=== PATIENT | male | born 1955 | race Caucasian/White ===

== ENCOUNTER 2020-06-28 09:37 | Outpatient (REF) | payer OTHER, SELFPAY ==
[2020-06-28 12:03] LABS: Estimated Average Glucose 157 mg/dL; Hemoglobin A1c % 7.1 %
[2020-06-28 12:09] LABS: Alanine Aminotransferase 19 U/L (0-40); Albumin Level 4.2 g/dL (3.5-5.0); Alkaline Phosphatase 33 U/L (39-117); Anion Gap 13 (12-20); Aspartate Amino Transferase 20 U/L (5-37); Bilirubin Total 0.7 mg/dL (0.0-1.0); Blood Urea Nitrogen 21 mg/dL (9-16); Carbon Dioxide 30 mmol/L (22-29); Chloride 103 mmol/L (96-108); Cholesterol 169 mg/dL; Estimated Glomerular Filt Rate > 60; Glucose Fasting 141 mg/dL (60-99); HDL Cholesterol 48 mg/dL; LDL Cholesterol Calculated 98 mg/dl; Potassium 5.3 mmol/l (3.3-5.1); Sodium 141 mmol/L (135-145); Total Protein 7.3 g/dL (6.5-8.0); Triglycerides 115 mg/dL
[2020-06-28 12:12] LABS: Prostate Specific Antigen Scr 0.93 ng/mL (<0.05-4.0)
[2020-06-28 12:27] LABS: Creatinine Urine 153.25 mg/dL; Microalbumin Urine < 5.0 mg/L
== END 2020-06-28 09:38 | disposition home or self-care (01) ==
LOC: HO.HMGCLDS 09:37
PROVIDERS: PCP Internal Medicine; Visit Provider Internal Medicine
DX: E11.9 Type 2 diabetes mellitus without complications (principal); E78.5 Hyperlipidemia, unspecified; Z00.00 Encounter for general adult medical examination without abnormal findings
CPT/HCPCS: 80053; 80061; 82043; 83036; 84153

== ENCOUNTER 2020-07-09 10:01 | Outpatient (REF) | payer OTHER, SELFPAY ==
[2020-07-09 11:38] LABS: Anion Gap 11 (12-20); Blood Urea Nitrogen 19 mg/dL (9-16); Calcium 8.7 mg/dL (8.4-10.2); Carbon Dioxide 31 mmol/L (22-29); Chloride 101 mmol/L (96-108); Estimated Glomerular Filt Rate > 60; Glucose Random 126 mg/dL (60-115); Sodium 138 mmol/L (135-145)
== END 2020-07-09 10:02 | disposition home or self-care (01) ==
LOC: HO.HMGCLDS 10:01
PROVIDERS: PCP Internal Medicine; Visit Provider Internal Medicine
DX: E78.5 Hyperlipidemia, unspecified (principal); E11.9 Type 2 diabetes mellitus without complications; I10 Essential (primary) hypertension
CPT/HCPCS: 80048

== ENCOUNTER 2020-11-08 14:43 | Outpatient (REF) | payer OTHER, SELFPAY | END 2020-11-08 14:44 | disposition home or self-care (01) | LOC: HO.LNP 14:43 | PROVIDERS: Visit Provider Hospitalist | DX: B34.9 Viral infection, unspecified (principal); Z20.822 Contact with and (suspected) exposure to COVID-19 | CPT/HCPCS: U0003; U0005 ==

== ENCOUNTER 2021-01-14 08:07 | Outpatient (REF) | payer OTHER, SELFPAY ==
[2021-01-14 11:50] LABS: Alanine Aminotransferase 21 U/L (0-40); Albumin Level 4.3 g/dL (3.5-5.0); Alkaline Phosphatase 33 U/L (39-117); Anion Gap 17 (12-20); Aspartate Amino Transferase 22 U/L (5-37); Bilirubin Total 0.7 mg/dL (0.0-1.0); Blood Urea Nitrogen 21 mg/dL (9-16); Calcium 9.1 mg/dL (8.4-10.2); Carbon Dioxide 25 mmol/L (22-29); Chloride 105 mmol/L (96-108); Cholesterol 164 mg/dL; Estimated Glomerular Filt Rate > 60; Glucose Fasting 116 mg/dL (60-99); HDL Cholesterol 43 mg/dL; LDL Cholesterol Calculated 102 mg/dl; Potassium 4.6 mmol/L (3.3-5.1); Sodium 142 mmol/L (135-145); Total Protein 7.1 g/dL (6.5-8.0); Triglycerides 98 mg/dL
[2021-01-14 11:59] LABS: Creatinine Urine 197.84 mg/dL; Microalbum/Creatinine Ratio Ur 2.5 ug/mg cr
[2021-01-14 12:01] LABS: Estimated Average Glucose 146 mg/dL; Hemoglobin A1c % 6.7 %
== END 2021-01-14 08:08 | disposition home or self-care (01) ==
LOC: HO.HMGCLDS 08:07
PROVIDERS: PCP Internal Medicine; Visit Provider Internal Medicine
DX: E78.5 Hyperlipidemia, unspecified (principal); I10 Essential (primary) hypertension; E11.9 Type 2 diabetes mellitus without complications
CPT/HCPCS: 36415; 80053; 80061; 82043; 83036

== ENCOUNTER 2021-03-15 14:15 | Outpatient (REF) | payer OTHER, SELFPAY | END 2021-03-15 14:16 | disposition home or self-care (01) | LOC: HO.LNP 14:15 | PROVIDERS: Visit Provider Internal Medicine | DX: J01.90 Acute sinusitis, unspecified (principal); Z20.822 Contact with and (suspected) exposure to COVID-19 | CPT/HCPCS: U0003; U0005 ==

== ENCOUNTER 2021-04-22 09:04 | Outpatient (REF) | payer OTHER, SELFPAY ==
[2021-04-22 11:46] LABS: Estimated Average Glucose 148 mg/dL; Hemoglobin A1c % 6.8 %
[2021-04-22 11:52] LABS: Creatinine Urine 195.29 mg/dL; Microalbum/Creatinine Ratio Ur 2.5 ug/mg cr
[2021-04-22 12:00] LABS: Alanine Aminotransferase 28 U/L (0-40); Albumin Level 4.2 g/dL (3.5-5.0); Alkaline Phosphatase 37 U/L (39-117); Anion Gap 12 (12-20); Aspartate Amino Transferase 31 U/L (5-37); Bilirubin Total 0.7 mg/dL (0.0-1.0); Blood Urea Nitrogen 17 mg/dL (9-16); Carbon Dioxide 28 mmol/L (22-29); Chloride 104 mmol/L (96-108); Cholesterol 158 mg/dL; Estimated Glomerular Filt Rate > 60; Glucose Fasting 107 mg/dL (60-99); HDL Cholesterol 43 mg/dL; LDL Cholesterol Calculated 92 mg/dl; Potassium 4.3 mmol/L (3.3-5.1); Sodium 140 mmol/L (135-145); Total Protein 7.3 g/dL (6.5-8.0); Triglycerides 115 mg/dL
== END 2021-04-22 09:05 | disposition home or self-care (01) ==
LOC: HO.HMGCLDS 09:04
PROVIDERS: PCP Internal Medicine; Visit Provider Internal Medicine
DX: E11.9 Type 2 diabetes mellitus without complications (principal); E78.5 Hyperlipidemia, unspecified; I10 Essential (primary) hypertension
CPT/HCPCS: 36415; 80053; 80061; 82043; 83036

== ENCOUNTER 2021-09-02 09:24 | Outpatient (REF) | payer BC, SELFPAY ==
[2021-09-02 11:33] LABS: Estimated Average Glucose 163 mg/dL; Hemoglobin A1c % 7.3 %
[2021-09-02 11:38] LABS: Microalbum/Creatinine Ratio Ur 3.4 ug/mg cr
[2021-09-02 11:43] LABS: Alanine Aminotransferase 24 U/L (0-40); Albumin Level 4.1 g/dL (3.5-5.0); Alkaline Phosphatase 36 U/L (39-117); Anion Gap 12 (12-20); Aspartate Amino Transferase 26 U/L (5-37); Bilirubin Total 0.3 mg/dL (0.0-1.0); Blood Urea Nitrogen 14 mg/dL (9-16); Calcium 9.2 mg/dL (8.4-10.2); Carbon Dioxide 30 mmol/L (22-29); Chloride 103 mmol/L (96-108); Cholesterol 154 mg/dL; Estimated Glomerular Filt Rate > 60; Glucose Fasting 116 mg/dL (60-99); HDL Cholesterol 36 mg/dL; LDL Cholesterol Calculated 89 mg/dl; Potassium 4.5 mmol/L (3.3-5.1); Sodium 140 mmol/L (135-145); Total Protein 7.2 g/dL (6.5-8.0); Triglycerides 148 mg/dL
== END 2021-09-02 09:25 | disposition home or self-care (01) ==
LOC: HO.HMGCLDS 09:24
PROVIDERS: PCP Internal Medicine; Visit Provider Internal Medicine
DX: E11.9 Type 2 diabetes mellitus without complications (principal); E78.5 Hyperlipidemia, unspecified; I10 Essential (primary) hypertension
CPT/HCPCS: 36415; 80053; 80061; 82043; 83036

== ENCOUNTER 2022-02-20 08:01 | Outpatient (REF) | payer BC, SELFPAY ==
--- NOTE | ~2022-02-20 | US_ITS ---
EXAMINATION: US THYROID CLINICAL INFORMATION: Nontoxic goiter, unspecified. COMPARISON: None TECHNIQUE: Linear transducer grayscale and color Doppler examination with attention to the region of the thyroid. FINDINGS: SIZE: Measurements of the thyroid lobes and nodules are given in sagittal, anteroposterior and transverse dimensions respectively. Right Thyroid Lobe: 5.2 x 1.5 x 2.1 cm, volume 8.6 mL. Parenchyma: The gland echotexture is homogeneous. Thyroid vascularity is normal. Left Thyroid Lobe: 5.4 x 1.4 x 1.9 cm, volume 7.5 mL. Parenchyma: The gland echotexture is homogeneous. Thyroid vascularity is normal. Isthmus: 0.4 cm in maximum AP dimension. Estimated total number of nodules greater than or equal to 1 cm: 3. Panelboard Tank Pumper nodules are described as follows: 1. Location: Left lower pole. Size: 1.5 x 0.9 x 1.2 cm, volume 0.85 mL. Nodule characteristics: Composition: Solid/almost completely solid (2). Echogenicity: Hyperechoic (1). Shape: Not taller than wide (0). Margins: Smooth (0). Echogenic Foci: None (0). ACR TI-RADS total points: 3 ACR TI-RADS category: 3 2. Location: Left isthmus. Size: 1.2 x 0.8 x 1.0 cm, volume 0.50 mL. Nodule characteristics: Composition: Solid/almost completely solid (2). Echogenicity: Cannot be determined (1). Shape: Not taller than wide (0). Margins: Smooth (0). Echogenic Foci: None (0). ACR TI-RADS total points: 3 ACR TI-RADS category: 3 3. Location: Right mid pole. Size: 1.0 x 0.7 x 0.6 cm, volume 0.21 mL. Nodule characteristics: Composition: Solid/almost completely solid (2). Echogenicity: Cannot be determined (1). Shape: Taller than wide (3). Margins: Irregular (2). Echogenic Foci: None (0). ACR TI-RADS total points: 8 ACR TI-RADS category: 5 4. Location: Right lower pole. Size: 0.6 x 0.4 x 0.6 cm, volume 0.09 mL. Nodule characteristics: Composition: Solid (2). Echogenicity: Hyperechoic (1). Shape: Not taller than wide (0). Margins: Smooth (0). Echogenic Foci: None (0). ACR TI-RADS total points: 3 ACR TI-RADS category: 3 NODES: No lymphadenopathy is seen in the tissue surrounding the thyroid gland. US/US thyroid IMPRESSION: Bilateral thyroid nodules with a suspicious nodule right midpole measuring 1 cm and increased ACR TI-RADS scoring. Recommend 3 month short-term follow-up in one year. ACR TI-RADS RECOMMENDATION REFERENCE: Ultrasound-guided fine-needle aspiration, followup ultrasound, no further follow up. * TR1 (0 point) and TR 2 (2 points): No FNA or follow up * TR3 (3 points): FNA if more than or equal to 2.5 cm in maximum dimension, followup ultrasound in 1, 3 and 5 years if 1.5 to 2.4 cm in maximum dimension. * TR4 (4-6 points): FNA if more than or equal to 1.5 cm in maximum dimension, followup ultrasound in 1, 2, 3 and 5 years if 1 to 1.4 cm in maximum dimension. * TR5 (more than or equal to 7 points): FNA if more than or equal to 1 cm in maximum dimension, followup ultrasound every year for 5 years if 0.5 to 0.9 cm in maximum dimension. * TR3, TR4 or TR5 nodules that are below the size threshold for follow up receive no follow up.
== END 2022-02-20 08:02 | disposition home or self-care (01) ==
LOC: HO.HMGCX 08:01
PROVIDERS: Visit Provider Internal Medicine
DX: E04.9 Nontoxic goiter, unspecified (principal)
CPT/HCPCS: 76536

== ENCOUNTER 2022-02-23 09:18 | Outpatient (REF) | payer BC, SELFPAY ==
[2022-02-23 11:13] LABS: Hemoglobin 9.7 g/dl (14.0-18.0); Mean Corpuscular HGB Conc 28.5 g/dl (31.0-36.0); Mean Corpuscular Hemoglobin 18.7 pg (27.0-33.0); Mean Corpuscular Volume 65.6 fL (80.0-98.0); Mean Platelet Volume 9.7 fL (9.4-12.4); Platelet Count 267 X10*3/uL (160-400); Red Blood Count 5.18 X10*6/uL (4.60-5.80); Red Cell Distribution Width 18.2 % (11.0-16.0)
[2022-02-23 11:17] LABS: Estimated Average Glucose 143 mg/dL; Hemoglobin A1c % 6.6 %
[2022-02-23 11:26] LABS: Alanine Aminotransferase 29 U/L (0-40); Albumin Level 4.3 g/dL (3.5-5.0); Alkaline Phosphatase 37 U/L (39-117); Anion Gap 11 (12-20); Aspartate Amino Transferase 27 U/L (5-37); Bilirubin Total 0.4 mg/dL (0.0-1.0); Blood Urea Nitrogen 14 mg/dL (9-16); Calcium 8.8 mg/dL (8.4-10.2); Carbon Dioxide 27 mmol/L (22-29); Chloride 103 mmol/L (96-108); Cholesterol 149 mg/dL; Estimated Glomerular Filt Rate > 60; Glucose Fasting 113 mg/dL (60-99); HDL Cholesterol 38 mg/dL; LDL Cholesterol Calculated 84 mg/dl; Potassium 4.3 mmol/L (3.3-5.1); Sodium 137 mmol/L (135-145); Total Protein 7.4 g/dL (6.5-8.0); Triglycerides 139 mg/dL
== END 2022-02-23 09:19 | disposition home or self-care (01) ==
LOC: HO.HMGCLDS 09:18
PROVIDERS: PCP Internal Medicine; Visit Provider Internal Medicine
DX: I20.8 Other forms of angina pectoris (principal); I10 Essential (primary) hypertension; E11.9 Type 2 diabetes mellitus without complications
CPT/HCPCS: 36415; 80053; 80061; 83036; 85027

== ENCOUNTER 2022-03-13 12:15 | Outpatient (REF) | payer BC, SELFPAY ==
[2022-03-13 14:02] LABS: Iron 21 mcg/dL (45-160)
[2022-03-13 14:23] LABS: Percent Iron Saturation 4 % (15-50); Total Iron Binding Capacity 554 mcg/dL (228-428); Unsaturated Iron Binding 533 ug/dL
[2022-03-13 14:37] LABS: Folate 16.7 ng/mL (> or = 4.0); Vitamin B12 474 pg/mL (200-900)
== END 2022-03-13 12:16 | disposition home or self-care (01) ==
LOC: HO.HMGCLDS 12:15
PROVIDERS: PCP Internal Medicine; Visit Provider Internal Medicine
DX: D64.9 Anemia, unspecified (principal)
CPT/HCPCS: 36415; 82607; 82746; 83540

== ENCOUNTER 2022-06-15 15:13 | Outpatient (REF) | payer BC, SELFPAY ==
--- NOTE | ~2022-06-15 | US_ITS ---
EXAMINATION: US THYROID CLINICAL INFORMATION: Nontoxic single thyroid nodule. COMPARISON: Ultrasound thyroid 02/20/2022. TECHNIQUE: Linear transducer grayscale and color Doppler examination with attention to the region of the thyroid. FINDINGS: SIZE: Measurements of the thyroid lobes and nodules are given in sagittal, anteroposterior and transverse dimensions respectively. Right Thyroid Lobe: 5.1 x 1.5 x 1.6 cm, volume 6.3 mL. Previously 5.2 x 1.5 x 2.1 cm, volume 8.6 mL. Parenchyma: The gland echotexture is homogeneous. Thyroid vascularity is normal. Left Thyroid Lobe: 4.9 x 1.6 x 2.0 cm, volume 8.1 mL. Previously 5.4 x 1.4 x 1.9 cm, volume 7.5 mL. Parenchyma: The gland echotexture is homogeneous. Thyroid vascularity is normal. Isthmus: 0.60 cm in maximum AP dimension. Previously 0.40 cm. Estimated total number of nodules greater than or equal to 1 cm: 2. Manager Transport nodules are described as follows: 1. Location: Right inferior. Size: 0.84 x 0.50 x 0.60 cm, volume 0.13 mL. Previously: 0.60 x 0.40 x 0.60 cm, volume 0.09 mL. Nodule characteristics: Composition: Spongiform (0). Echogenicity: Anechoic (0). Shape: Not taller than wide (0). Margins: Smooth (0). Echogenic Foci: None (0). ACR TI-RADS total points: 0 Previous: 3 ACR TI-RADS category: 1 Previous: 3 Significant change in size (>/= 20% in 2 dimensions and minimal increase of 2 mm or 50% or greater increase in volume): None Change in features: None Change in ACR TI-RADS risk category: Improved 2. Location: Right mid. Size: 0.40 x 0.20 x 0.40 cm, volume 0.02 mL. Previously: Not seen on the previous study. Nodule characteristics: Composition: Spongiform (0). Echogenicity: Anechoic (0). Shape: Not taller than wide (0). Margins: Smooth (0). Echogenic Foci: None (0). ACR TI-RADS total points: 0 ACR TI-RADS category: 1 3. Location: Right superior. Size: 0.90 x 0.60 x 0.80 cm, volume 0.20 mL. Previously: 1.0 x 0.70 x 0.60 cm, volume 0.21 mL. Nodule characteristics: Composition: Solid/almost completely solid (2). Echogenicity: Hypoechoic (2). Shape: Not taller than wide (0). Margins: Smooth (0). Echogenic Foci: Punctate echogenic foci (3). ACR TI-RADS total points: 7 Previous: 8 ACR TI-RADS category: 5 Previous: 5 Significant change in size (>/= 20% in 2 dimensions and minimal increase of 2 mm or 50% or greater increase in volume): None Change in features: None Change in ACR TI-RADS risk category: None 4. Location: Left inferior. Size: 1.5 x 1.1 x 1.3 cm, volume 1.1 mL. Previously: 1.5 x 1.0 x 1.2 cm, volume 0.85 mL. Nodule characteristics: Composition: Solid/almost completely solid (2). Echogenicity: Hyperechoic (1). Shape: Not taller than wide (0). Margins: Smooth (0). Echogenic Foci: Punctate echogenic foci (3). ACR TI-RADS total points: 6 Previous: 3 ACR TI-RADS category: 4 Previous: 3 Significant change in size (>/= 20% in 2 dimensions and minimal increase of 2 mm or 50% or greater increase in volume): None Change in features: None Change in ACR TI-RADS risk category: Increased 5. Location: Left inferior. Size: 1.1 x 1.0 x 1.2 cm, volume 0.72 mL. Previously: 1.2 x 0.80 x 0.10 cm, volume 0.50 mL. Nodule characteristics: Composition: Mixed cystic and solid (1). Echogenicity: Hypoechoic (2). Shape: Not taller than wide (0). Margins: Smooth (0). Echogenic Foci: None (0). ACR TI-RADS total points: 3 Previous: 3 ACR TI-RADS category: 3 Previous: 3 Significant change in size (>/= 20% in 2 dimensions and minimal increase of 2 mm or 50% or greater increase in volume): None Change in features: None Change in ACR TI-RADS risk category: Increased NODES: No lymphadenopathy is seen in the tissue surrounding the thyroid gland. US/US thyroid IMPRESSION: Multiple bilateral thyroid nodules. The largest nodule lower pole left lobe measures 1.5 CM with minimal increase in total points. TR1 (0 point) and TR 2 (2 points). TR4 (4-6 points): FNA if more than or equal to 1.5 cm in maximum dimension, followup ultrasound in 1, 2, 3 and 5 years if 1 to 1.4 cm in maximum dimension. TR5 (more than or equal to 7 points). FNA if more than or equal to 1 cm in maximum dimension, followup ultrasound every year for 5 years if 0.5 to 0.9 cm in maximum dimension.
== END 2022-06-15 15:14 | disposition home or self-care (01) ==
LOC: HO.HMGCX 15:13
PROVIDERS: PCP Internal Medicine; Visit Provider Internal Medicine
DX: E04.1 Nontoxic single thyroid nodule (principal)
CPT/HCPCS: 76536

== ENCOUNTER 2022-07-28 08:32 | Outpatient (REF) | payer BC, SELFPAY ==
[2022-07-28 11:15] LABS: MANUAL DIFF FLAG NO
[2022-07-28 11:20] LABS: Basophils Absolute Auto 0.1 X10*3/uL (0.0-0.2); Basophils Percent Auto 0.8 % (0-2); Eosinophils Absolute Auto 0.4 X10*3/uL (0.0-0.4); Eosinophils Percent Auto 4.6 % (0-4); Hematocrit 45.5 % (42.0-52.0); Hemoglobin 14.2 g/dl (14.0-18.0); Imm Gran Abs Auto 0.01 X10*3/uL (0.00-0.03); Imm Gran Pct Auto 0.1 % (0.0-0.4); Lymphocytes Absolute Auto 2.9 X10*3/uL (1.2-4.9); Lymphocytes Percent Auto 38.4 % (20-40); Mean Corpuscular HGB Conc 31.2 g/dl (31.0-36.0); Mean Corpuscular Hemoglobin 24.7 pg (27.0-33.0); Mean Corpuscular Volume 79.1 fL (80.0-98.0); Mean Platelet Volume 10.7 fL (9.4-12.4); Monocytes Absolute Auto 0.7 X10*3/uL (0.1-1.2); Monocytes Percent Auto 9.1 % (2-11); Neutrophils Absolute Auto 3.6 x10*3/uL (2.0-8.3); Platelet Count 195 X10*3/uL (160-400); Red Blood Count 5.75 X10*6/uL (4.60-5.80); Red Cell Distribution Width 18.7 % (11.0-16.0); White Blood Count 7.6 X10*3/uL (4.8-10.8)
[2022-07-28 11:49] LABS: Microalbum/Creatinine Ratio Ur 2.8 ug/mg cr
[2022-07-28 11:57] LABS: Estimated Average Glucose 154 mg/dL
[2022-07-28 11:58] LABS: Alanine Aminotransferase 32 U/L (0-40); Albumin Level 4.3 g/dL (3.5-5.0); Alkaline Phosphatase 43 U/L (39-117); Anion Gap 14 (12-20); Aspartate Amino Transferase 26 U/L (5-37); Bilirubin Total 0.7 mg/dL (0.0-1.0); Blood Urea Nitrogen 18 mg/dL (9-16); Carbon Dioxide 27 mmol/L (22-29); Chloride 103 mmol/L (96-108); Cholesterol 171 mg/dL; Estimated Glomerular Filt Rate > 60; Glucose Fasting 131 mg/dL (60-99); HDL Cholesterol 37 mg/dL; LDL Cholesterol Calculated 104 mg/dl; Sodium 140 mmol/L (135-145); Total Protein 7.2 g/dL (6.5-8.0); Triglycerides 154 mg/dL
[2022-07-28 12:38] LABS: PSA,Total (Free>4and<10) 1.17 ng/mL (0.00-4.00)
== END 2022-07-28 08:33 | disposition home or self-care (01) ==
LOC: HO.HMGCLDS 08:32
PROVIDERS: PCP Internal Medicine; Visit Provider Internal Medicine
DX: Z12.5 Encounter for screening for malignant neoplasm of prostate (principal); D64.9 Anemia, unspecified; E78.5 Hyperlipidemia, unspecified; E11.9 Type 2 diabetes mellitus without complications; I10 Essential (primary) hypertension
CPT/HCPCS: 36415; 80053; 80061; 82043; 83036; 84153; 85025

== ENCOUNTER → 2022-09-06 07:36 | Outpatient (BNVA) | payer BC, SELFPAY | PROVIDERS: PCP Internal Medicine; Visit Provider Internal Medicine | DX: Z13.89 Encounter for screening for other disorder (principal) ==

== ENCOUNTER 2022-09-06 08:43 | Outpatient (REF) | payer BC, SELFPAY ==
[2022-09-06 11:56] LABS: Thyroid Stimulating Hormone 1.24 uIU/mL (0.32-4.0)
== END 2022-09-06 08:44 | disposition home or self-care (01) ==
LOC: HO.10HDL 08:43
PROVIDERS: Visit Provider Internal Medicine
DX: E04.2 Nontoxic multinodular goiter (principal)
CPT/HCPCS: 36415; 84439; 84443

== ENCOUNTER 2022-10-13 12:55 | Outpatient (REF) | payer BC, SELFPAY ==
[2022-10-13 14:15] LABS: MANUAL DIFF FLAG NO
[2022-10-13 14:20] LABS: Basophils Absolute Auto 0.1 X10*3/uL (0.0-0.2); Basophils Percent Auto 0.7 % (0-2); Eosinophils Absolute Auto 0.4 X10*3/uL (0.0-0.4); Eosinophils Percent Auto 4.8 % (0-4); Hematocrit 43.7 % (42.0-52.0); Hemoglobin 14.8 g/dl (14.0-18.0); Imm Gran Abs Auto 0.02 X10*3/uL (0.00-0.03); Imm Gran Pct Auto 0.2 % (0.0-0.4); Lymphocytes Absolute Auto 3.2 X10*3/uL (1.2-4.9); Lymphocytes Percent Auto 38.4 % (20-40); Mean Corpuscular HGB Conc 33.9 g/dl (31.0-36.0); Mean Corpuscular Hemoglobin 28.2 pg (27.0-33.0); Mean Corpuscular Volume 83.2 fL (80.0-98.0); Mean Platelet Volume 10.7 fL (9.4-12.4); Monocytes Absolute Auto 0.9 X10*3/uL (0.1-1.2); Monocytes Percent Auto 10.5 % (2-11); Neutrophils Absolute Auto 3.7 x10*3/uL (2.0-8.3); Neutrophils Percent Auto 45.4 % (45-73); Platelet Count 198 X10*3/uL (160-400); Red Blood Count 5.25 X10*6/uL (4.60-5.80); Red Cell Distribution Width 14.1 % (11.0-16.0); White Blood Count 8.3 X10*3/uL (4.8-10.8)
[2022-10-13 14:29] LABS: Estimated Average Glucose 160 mg/dL; Hemoglobin A1c % 7.2 %
[2022-10-13 14:57] LABS: Alanine Aminotransferase 43 U/L (0-40); Albumin Level 4.3 g/dL (3.5-5.0); Alkaline Phosphatase 40 U/L (39-117); Anion Gap 10 (12-20); Aspartate Amino Transferase 36 U/L (5-37); Bilirubin Total 0.7 mg/dL (0.0-1.0); Blood Urea Nitrogen 15 mg/dL (9-16); Calcium 9.2 mg/dL (8.4-10.2); Carbon Dioxide 31 mmol/L (22-29); Chloride 101 mmol/L (96-108); Estimated Glomerular Filt Rate > 60; Glucose Random 93 mg/dL (60-115); Iron 129 mcg/dL (45-160); Percent Iron Saturation 36 % (15-50); Potassium 4.4 mmol/L (3.3-5.1); Sodium 138 mmol/L (135-145); Total Iron Binding Capacity 357 mcg/dL (228-428); Total Protein 7.3 g/dL (6.5-8.0); Unsaturated Iron Binding 228 ug/dL
== END 2022-10-13 12:56 | disposition home or self-care (01) ==
LOC: HO.HMGCLDS 12:55
PROVIDERS: PCP Internal Medicine; Visit Provider Internal Medicine
DX: D64.9 Anemia, unspecified (principal); E11.9 Type 2 diabetes mellitus without complications; K31.7 Polyp of stomach and duodenum; I10 Essential (primary) hypertension
CPT/HCPCS: 36415; 80053; 83036; 83540; 85025

== ENCOUNTER 2022-10-26 07:50 | Outpatient (REF) | payer BC, SELFPAY ==
--- NOTE | 2022-10-26 08:35 | P.BOP_ITS ---
Brief Operative Note Date of Service: 10/26/22 Pre-op diagnosis: Multinodular Thyroid Procedure: EXAMINATION: US THYROID CLINICAL INFORMATION: Multinodular Thyroid COMPARISON: Prior TECHNIQUE: Linear transducer juárez-scale and color Doppler examination with attention to the region of the thyroid. FINDINGS: SIZE: Measurements of the thyroid lobes and nodules are given in sagittal, anteroposterior and transverse dimensions respectively. Right Thyroid Lobe: 5.0 x 1.7 x 1.8 cm, volume 8.0 mL. Parenchyma: The gland echotexture is diffusely heterogenous. Thyroid vascularity is normal. Left Thyroid Lobe: 4.7 x 1.4 x 2.2 cm, volume 7.8 mL. Parenchyma: The gland echotexture is heterogenous. Thyroid vascularity is normal. Isthmus: 0.3 cm in maximum AP dimension. RIGHT THYROID LOBE: There is 1 nodule. 1) Right mid pole: 0.9 x 0.5 x 0.8 cm Solid, hypoechoic with regular margins and no microcalcifications. LEFT THYROID LOBE: There are 2 nodules. 1) Left lower pole 1.7 x 1.8 x 0.9 Spongiform, regular margins, no microcalcifications and regular vascularity. 2) Left lower pole 1.2 x 1.2 x 1.1 Mixed cystic, regular margins, no microcalcifications and regular vascularity. NODES: No lymphadenopathy is seen in the tissue surrounding the thyroid gland. IMPRESSION: No nodules meeting indication for FNA biopsy today. Surgeon: Teri Figueroa, DO Was an [employer] Supervisor used for this Procedure?: No Estimated blood loss (mL): 0
== END 2022-10-26 07:51 | disposition home or self-care (01) ==
LOC: HO.US 07:50
PROVIDERS: PCP Internal Medicine; Visit Provider Internal Medicine
DX: E04.2 Nontoxic multinodular goiter (principal)
CPT/HCPCS: 76536

== ENCOUNTER 2022-11-27 14:26 | Outpatient (REF) | payer BC, SELFPAY ==
--- NOTE | ~2022-11-27 | FL_ITS ---
EXAMINATION: FL BARIUM SWALLOW CLINICAL INFORMATION: Dysphagia. COMPARISON: None available. TECHNIQUE: Modified barium swallow was performed in lateral fluoroscopy projection in presence of speech therapist. FINDINGS: Following oral administration of thin barium, barium coated apple puree and barium coated cookie, there is normal propagation of bolus from the oral cavity through the pharynx into the esophagus. No laryngeal penetration or aspiration seen. There is no retention of food in the valleculae or piriform sinuses. Incidental finding of degenerative disc changes C3-C4, C4-C5, C5-C6 and C6-C7 disc levels is noted. FLUOROSCOPY TIME: 1.3 minutes DOSE AREA PRODUCT: 2.621 uGy-m2 (microgray-meter squared) FL/FL barium swallow modified IMPRESSION: Unremarkable modified barium swallow examination.
--- NOTE | 2022-11-28 11:03 | MHC.SL.IMP ---
Date of Plan of Treatment: 11/27/22 Onset of Symptoms/Illness: 11/28/19 Date Treatment Started: 11/27/22 Admitting Diagnosis: Diabetes, JIMENEZ (dyspnea on exertion), Enlarged thyroid, GERD, HTN, Hyperlipidemia, Lower back pain, Multinodular thyroid Primary Speech & Language Diagnosis: R13.10 Dysphagia Reason for Today's Visit: 02177 Modified Barium Swallow Study Pre-evaluation Dietary Consistencies: Regular Pre-evaluation Liquid Consistency: Thin Pre-evaluation Medication Administration: Whole with Liquid Medical History: Modified Barium Swallow Study Fluoroscopic Evaluation of Swallowing Function CPT Code 02455 Evaluation Year: 2022 Reason for Study: Pt reports difficulty with dry foods. Referring Physician: Teri Figueroa DO Evaluating Clinician: Marianne Felix MA, CCC-INCINERATOR PLANT LABORER Study Number: 1 Patient Name: Jose A Cook Status: Outpatient, Ambulatory Age: 67 Gender: Male Medical History Medical History Diabetes JIMENEZ (dyspnea on exertion) Enlarged thyroid GERD (gastroesophageal reflux disease) HTN (hypertension) Hyperlipidemia Lower back pain Multinodular thyroid Surgical History H/O colonoscopy Hx of endoscopy Current (pre-evaluation) Intake/Diet: Route: PO Diet Grade: Regular Liquid Consistencies: Thin Pre-Study Functional Oral Intake Scale (FOIS): 7- Total oral intake with no restrictions Pain: None reported at time of study SUBJECTIVE: Pt is a 67 year old male with hx enlarged thyroid and GERD. Pt complains of dysphagia, particularly with dry cookies and nuts. Pt reported, ?It feels like there are pieces stuck in my throat.? Additionally, pt reported that sometimes, but not always, liquid will ?go down the wrong way.? Pt denies experiencing pain when swallowing. He reports onset of these difficulties to have occurred 2-3 years ago, now gradually occurring more frequently. Food and Liquid Trials: Oral Impairment: Lip Closure: Did not test Oral Impairment: Tongue Control During Bolus Hold: 2=Posterior escape of less than half of bolus Oral Impairment: Bolus Preparation/Mastication: 0=Timely and efficient chewing and mashing Oral Impairment: Bolus Transport/Lingual Motion: 1= Delayed initiation of tongue motion Oral Impairment: Oral Residue: 1=Trace residue lining oral structures Oral Impairment:Initiation of Pharyngeal Swallow: 3=Bolus head in pyriforms Pharyngeal Impairment: Soft Palate Elevation: 0=No bolus between soft palate (SP)/pharyngeal wall (PW) Pharyngeal Impairment: Laryngeal Elevation: 0=Complete superior movement of thyroid cartilage (see description) Pharyngeal Impairment: Anterior Hyoid Excursion: 1=Partial anterior movement Pharyngeal Impairment: Epiglottic Movement: 0=Complete inversion Pharyngeal Impairment: Laryngeal Vestibular Closure:: 0=Complete: no air/contrast in laryngeal vestibule Pharyngeal Impairment: Pharyngeal Stripping Wave: 0=Present: complete Pharyngeal Impairment: Pharyngeal Contraction: Did not test Pharyngeal Impairment: Pharyngoesophageal Segment Openin=Complete distension and complete duration: no obstruction of flow Pharyngeal Impairment: Tongue Base (TB) Retraction: 1=Trace column of contrast/air between TB and posterior PW Pharyngeal Impairment: Pharyngeal Residue: 1=Trace residue within or on pharyngeal structures Pharyngeal Impairment: Esophageal Clearance Upright Position: Did not test Impressions and Recommendations OBJECTIVE: Time-out: performed at 14:45 Evaluation Start: 14:30; Stop: 14:33 Patient Positioning: Standing Viewing Planes: LATERAL ONLY Contrast: MBSImP? Standardized Protocol using commercially prepared, standardized Barium viscosities, including: Varibar? THIN LIQUID (40% w/v, <15 cps) , 1/2 Shortbread Cookie (1 x1 x.25 ) MBSImP ID: [id number] MBSImP Results: Lip closure for intraoral bolus containment could not be assessed due to logistical reasons not related to physiologic impairment. Tongue control during bolus hold resulted in posterior escape of less than half of the bolus. Bolus preparation and mastication resulted in timely and efficient chewing and mashing. Bolus transport/lingual motion demonstrated delayed initiation of tongue motion. Oral residue was a trace, lining oral structures. Initiation of the pharyngeal swallow occurred when the bolus head was in the pyriform sinuses. Soft palate elevation resulted in no bolus between the soft palate and the pharyngeal wall. Laryngeal elevation demonstrated complete superior movement of the thyroid cartilage with complete approximation of the arytenoids to the epiglottic petiole. Anterior hyoid excursion demonstrated partial anterior movement. Epiglottic movement resulted in complete inversion. Laryngeal vestibular closure was complete, as indicated by no air or contrast within the laryngeal vestibule at the height of the swallow. Pharyngeal stripping wave was present and complete. Pharyngeal contraction could not be determined due to logistical reasons not related to physiologic impairment. Pharyngoesophageal segment opening was completely distended for complete duration with no obstruction of bolus flow. Tongue base retraction allowed a trace column of contrast or air between the retracted tongue base and the posterior pharyngeal wall. Pharyngeal residue was a trace within or on pharyngeal structures. Esophageal clearance in the upright position could not be assessed due to logistical reasons not related to physiologic impairment. Oral Impairment Score: 6 (absence of score, component 1) Pharyngeal Impairment Score: 1 (absence of score, component 13) Esophageal Impairment Score: --- (absence of score, component 17) Laryngeal Penetration and Aspiration: Neither penetration nor aspiration was observed in today's study with Cookie, Thin. ASSESSMENT: This exam was conducted by a multidisciplinary team, which included a speech pathologist, radiologist, and cad technician. Pt was standing for lateral view only. Pt trialed the following liquid and solid consistencies: 5 mL thin liquid barium, sequential sips by cup thin liquid barium, pureed solid (applesauce mixed with barium paste), regular solid (Annette Doone cookie coated with barium paste), whole barium pill tablet with bite of applesauce. There was premature posterior escape of trace amount of liquid quite consistently, with liquid pooling in the valleculae and pyriform sinuses prior to productive lingual movement. Posterior lingual motion was mildly delayed. Pt demonstrated timely and efficient mastication pattern. There was trace residue on the blade and base of the tongue, which cleared with subsequent swallow. Pharyngeal swallow trigger was delayed, initiated as the bolus head reached the pyrifom sinuses. There was no nasopharyngeal reflux. Complete laryngeal vestibular closure with no evidence of aspiration or penetration during this exam. Good clearance of the valleculae and pyriform sinuses. Pt swallowed a barium pill tablet with a teaspoon of applesauce, pill passed through the oral cavity and the pharynx with no hang up. Liquid Intake Recommendation: Thin Liquid Intake Strategies: Small Sips Dietary Recommendations: Regular Medication Administration: Whole with Liquid Please contact the pharmacy regarding appropriate crushable or liquid drug formulations that are available whenever modified delivery is recommended. Compensatory Strategies Recommended: Sitting Upright (90 deg), Small Bites and Sips, Alternate Liquids/Solids, Rate of Ingestion Change Supervision during eating and or drinking: None Needed Recommendation for Speech Therapy: NA:Typical Evaluation Intake Recommendations: Route: PO Diet Grade: Regular Liquid Consistencies: Thin Post-Study Functional Oral Intake Scale (FOIS): 7- Total oral intake with no restrictions No evidence of aspiration or penetration during this exam. Pt demonstrated good oral and pharyngeal clearance. Further ST intervention is not indicated at this time, as swallow is deemed to be within functional limits. Recommend pt to continue monitoring dysphagia. If there are any changes or worsening of symptoms, recommend pt to consult with PCP, at which point a re-evaluation may be indicated. Therapy Recommendations: Therapy will be discontinued Prognosis for Improvement: The prognosis for the patient to meet nutritional needs by mouth is excellent based on degree of impairment. Clinician - Supplemental, Miscellaneous Communication: It is important to note MBSS objective studies are snapshots in time and Patient function might vary with factors such as time of day or concomitant medical conditions. For this reason, the final treatment plan for this patient should rest with their medical care team. Additional recommendations should be considered with the totality of the Patient in mind. Thank for the opportunity to participate in the care of this patient. If you have any questions about the content of this report, please contact the [facility]. Education: Education regarding findings from today's study and plans for therapy were provided to Patient only through Verbal Instruction. Understanding was expressed by the Patient only. Business Intelligence Director Clinician/Clinical Fellow: No Supervisory Statement: N/A Speech Language Pathologist: Marianne Felix M.A., CCC-INCINERATOR PLANT LABORER
== END 2022-11-27 14:27 | disposition home or self-care (01) ==
LOC: HO.XRAY 14:26
PROVIDERS: PCP Internal Medicine; Visit Provider Internal Medicine
DX: R13.10 Dysphagia, unspecified (principal)
CPT/HCPCS: 74230; 92611

== ENCOUNTER 2023-04-28 08:55 | Outpatient (REF) | payer BC, SELFPAY ==
[2023-04-28 11:24] LABS: MANUAL DIFF FLAG NO
[2023-04-28 11:29] LABS: Basophils Absolute Auto 0.1 X10*3/uL (0.0-0.2); Basophils Percent Auto 0.6 % (0-2); Eosinophils Absolute Auto 0.4 X10*3/uL (0.0-0.4); Eosinophils Percent Auto 4.8 % (0-4); Hematocrit 47.6 % (42.0-52.0); Hemoglobin 15.9 g/dl (14.0-18.0); Imm Gran Abs Auto 0.02 X10*3/uL (0.00-0.03); Imm Gran Pct Auto 0.3 % (0.0-0.4); Lymphocytes Absolute Auto 1.9 X10*3/uL (1.2-4.9); Lymphocytes Percent Auto 24.6 % (20-40); Mean Corpuscular HGB Conc 33.4 g/dl (31.0-36.0); Mean Corpuscular Hemoglobin 28.9 pg (27.0-33.0); Mean Corpuscular Volume 86.4 fL (80.0-98.0); Mean Platelet Volume 10.7 fL (9.4-12.4); Monocytes Absolute Auto 0.9 X10*3/uL (0.1-1.2); Monocytes Percent Auto 10.9 % (2-11); Neutrophils Absolute Auto 4.6 x10*3/uL (2.0-8.3); Neutrophils Percent Auto 58.8 % (45-73); Platelet Count 173 X10*3/uL (160-400); Red Blood Count 5.51 X10*6/uL (4.60-5.80); Red Cell Distribution Width 12.9 % (11.0-16.0); White Blood Count 7.9 X10*3/uL (4.8-10.8)
[2023-04-28 11:48] LABS: Alanine Aminotransferase 47 U/L (0-40); Albumin Level 4.4 g/dL (3.5-5.0); Alkaline Phosphatase 37 U/L (39-117); Anion Gap 15 (12-20); Aspartate Amino Transferase 46 U/L (5-37); Bilirubin Total 0.9 mg/dL (0.0-1.0); Blood Urea Nitrogen 16 mg/dL (9-16); Calcium 9.6 mg/dL (8.4-10.2); Carbon Dioxide 27 mmol/L (22-29); Chloride 104 mmol/L (96-108); Cholesterol 182 mg/dL (<200); Estimated Glomerular Filt Rate > 60; Glucose Fasting 163 mg/dL (60-99); HDL Cholesterol 41 mg/dL (>40); Iron 106 mcg/dL (45-160); LDL Cholesterol Calculated 117 mg/dL (<100); Percent Iron Saturation 31 % (15-50); Potassium 4.5 mmol/L (3.3-5.1); Sodium 141 mmol/L (135-145); Total Iron Binding Capacity 345 mcg/dL (228-428); Total Protein 7.8 g/dL (6.5-8.0); Triglycerides 124 mg/dL (<150); Unsaturated Iron Binding 239 ug/dL
[2023-04-28 11:50] LABS: Creatinine Urine 207.99 mg/dL; Microalbum/Creatinine Ratio Ur 2.8 ug/mg cr (<30)
[2023-04-28 11:56] LABS: Estimated Average Glucose 154 mg/dL
[2023-04-28 12:05] LABS: Vitamin D 25-OH Total 106.3 ng/mL (>30)
[2023-04-28 12:17] LABS: Folate 14.9 ng/mL (> or = 4.0); Vitamin B12 803 pg/mL (200-900)
== END 2023-04-28 08:56 | disposition home or self-care (01) ==
LOC: HO.HMGCLDS 08:55
PROVIDERS: PCP Internal Medicine; Visit Provider Internal Medicine
DX: K31.7 Polyp of stomach and duodenum (principal); E11.9 Type 2 diabetes mellitus without complications; I10 Essential (primary) hypertension; E78.5 Hyperlipidemia, unspecified
CPT/HCPCS: 36415; 80053; 80061; 82043; 82306; 82570; 82607; 82746; 83036; 83540; 85025

== ENCOUNTER 2023-05-04 11:51 | Outpatient (AMB) | payer BC, SELFPAY ==
--- NOTE | 2023-05-04 11:54 | MHC.PC.OV ---
Vital Signs 05/04/23 11:56 Height 5 ft 11 in Weight 228 lb BMI 31.8 BP 120/70 Blood Pressure Location Lt brachial Position Sitting Pulse 80 Pulse Source Pulse Oximeter Pulse Oximetry (%) 96 Oxygen Delivery Method Room Air Intake Visit Reasons: PE Intake Note: PT is here today for PE. Allergies lisinopril Allergy (Uncoded 05/04/23 12:03) upset stomach Medication List - Last Reconciled 05/04/23 by Janell Willis MD amlodipine 5 mg PO DAILY ascorbate calcium (vitamin C) 500 mg PO DAILY azelastine-fluticasone 137-50 mcg/spray (Dymista) 1 spray intranasal BID blood-glucose meter As directed cholecalciferol (vitamin D3) 25 mcg PO DAILY COVID-19 antigen test As directed ferrous sulfate (Feosol) 325 mg PO DAILY FreeStyle Lite Meter (blood-glucose meter) 1 ea miscellaneous DAILY NS FreeStyle Lite Strips (blood sugar diagnostic) test blood sugar twice daily NS glipizide 5 mg PO BID ipratropium bromide 2 sprays intranasal TID lancets (FreeStyle Lancets) test blood sugar daily metformin 1,000 mg PO BID omeprazole 20 mg PO DAILY sertraline 25 mg PO DAILY Tobacco use date assessed: 05/04/23 Fall risk assessment: No Falls in past year Last assessed Fall Risk: 05/04/23 Dental Screening Dental Screen Date: 05/04/23 Did you have a dental visit in the last 12 months?: Yes Did you have a dental problem in the last 6 months where you did not have access to dental care?: No Was dental information given to patient?: Patient has dentist HPI PE HPI Details Pt presents for PE. Patient complains of chronic lower back pain and is asking for the referral to [facility] Physical therapy in [place]. PFSH Medical History Dysphagia Multinodular thyroid JIMENEZ (dyspnea on exertion) Enlarged thyroid Lower back pain HTN (hypertension) GERD (gastroesophageal reflux disease) Hyperlipidemia Diabetes Surgical History Hx of endoscopy H/O colonoscopy Social History Household Members: Spouse Household Members Other:: Housing: House Alcohol intake: current Alcohol intake frequency: holidays/special occasions only Alcohol type: beer and wine Patient Tobacco Use Status: Former Tobacco user e-Cigarette/Vaping Use: Never Used service: No Current occupational status: employed Current occupational exposures/hazards: No Cognitive needs: No Hearing needs: No Vision needs: No Questionnaire Thrive Questionnaire Date Thrive assessed: 10/13/22 ROCKY-7 AMB Questionnaire ROCKY-7 Date ROCKY - 7 assessed: 10/13/22 Source: Developed by Drs. Kennedy Bradley, Melissa Farris, Shayan Ashton and colleagues, with an educational trisha from [employer]. Review of Systems Const All systems reviewed & are unremarkable except as noted in HPI and below Reports no additional complaints Eyes Reports no additional complaints ENT Reports no additional complaints Card Reports no additional complaints Resp Reports no additional complaints GI Reports no additional complaints Reports no additional complaints Physical exam (Primary Care) Vital Signs: Last Vital Signs Pulse 80 05/04/23 11:56 BP 120/70 05/04/23 11:56 Pulse Ox 96 05/04/23 11:56 Oxygen Delivery Method Room Air 05/04/23 11:56 BMI result Body Mass Index 31.8 Tobacco/Smoking Status: Tobacco use Status Tobacco use date assessed 05/04/23 05/04/23 12:03 Patient Tobacco Use Status Former Tobacco user 05/04/23 11:54 e-Cigarette/Vaping Use Never Used 05/04/23 11:54 Thrive Assessment: Date of Thrive Assessment Date Thrive assessed 10/13/22 05/04/23 11:54 Const General: no acute distress HENMT Face and sinus: Yes normal facial exam Eyes General: appearance normal, both eyes and all related structures Resp Effort & Inspection: normal respiratory effort Auscultation: clear to auscultation bilaterally Cardio Rhythm: regular rhythm Heart sounds: S1 normal heart sound present and S2 normal heart sound present GI Inspection: Yes normal to inspection and Yes obesity Palpation (GI): Soft to palpation Percussion: Yes normal to percussion Auscultation: normal bowel sounds Extrem General: Yes no clubbing, cyanosis or edema Assessment and Plan Assessment & Plan (1) Lower back pain: Code(s): M54.50 - Low back pain, unspecified Plan: Patient will schedule appointment at PT at [facility] (2) Hyperlipidemia: Code(s): E78.5 - Hyperlipidemia, unspecified Plan: Continue statin (3) Diabetes: Code(s): E11.9 - Type 2 diabetes mellitus without complications Plan: A1c 7.0, ADA diet increase exercise weight loss discussed with the patient. Patient will continue metformin increased glipizide to twice a day. Addition of GLP-1 receptor agonist discussed with the patient but he is not interested. He will check A1c in 3 and 6 months (4) HTN (hypertension): Comment: Intolerant to lisinopril Code(s): I10 - Essential (primary) hypertension Plan: Continue amlodipine (5) Annual physical exam: Code(s): Z00.00 - Encounter for general adult medical examination without abnormal findings Plan: Well-balanced diet, regular exercise weight loss discussed with the patient. follow-up in 6 months with a fasting blood work before Orders: Orders PT Evaluation and Treatment Today M54.50 - Low back pain, unspecified Comprehensive [place]. Panel Fast 3 Months E11.9 - Type 2 diabetes mellitus without complications, E78.5 - Hyperlipidemia, unspecified Hemoglobin A1c 3 Months E11.9 - Type 2 diabetes mellitus without complications, E78.5 - Hyperlipidemia, unspecified Complete Blood Count Auto Diff 6 Months E11.9 - Type 2 diabetes mellitus without complications, E78.5 - Hyperlipidemia, unspecified, I10 - Essential (primary) hypertension, Z00.00 - Encounter for general adult medical examination without abnormal findings Microalbumin, Random (w Creat) 6 Months E11.9 - Type 2 diabetes mellitus without complications, E78.5 - Hyperlipidemia, unspecified, I10 - Essential (primary) hypertension, Z00.00 - Encounter for general adult medical examination without abnormal findings PSA,Total (Free>4and<10) 6 Months E11.9 - Type 2 diabetes mellitus without complications, E78.5 - Hyperlipidemia, unspecified, I10 - Essential (primary) hypertension, Z00.00 - Encounter for general adult medical examination without abnormal findings Comprehensive [place]. Panel Fast 6 Months E11.9 - Type 2 diabetes mellitus without complications, E78.5 - Hyperlipidemia, unspecified, I10 - Essential (primary) hypertension, Z00.00 - Encounter for general adult medical examination without abnormal findings Hemoglobin A1c 6 Months E11.9 - Type 2 diabetes mellitus without complications, E78.5 - Hyperlipidemia, unspecified, I10 - Essential (primary) hypertension, Z00.00 - Encounter for general adult medical examination without abnormal findings IRON PROFILE 6 Months E11.9 - Type 2 diabetes mellitus without complications, E78.5 - Hyperlipidemia, unspecified, I10 - Essential (primary) hypertension, Z00.00 - Encounter for general adult medical examination without abnormal findings Lipid Panel 6 Months E11.9 - Type 2 diabetes mellitus without complications, E78.5 - Hyperlipidemia, unspecified, I10 - Essential (primary) hypertension, Z00.00 - Encounter for general adult medical examination without abnormal findings Medications: New pravastatin 20 mg PO DAILY 90 tabs 2RF Coding Level of Care Code Est Pt Prev Care >65y(13953) Diagnoses Lower back pain M54.50 Hyperlipidemia E78.5 Diabetes E11.9 HTN (hypertension) I10 Annual physical exam Z00.00
[2023-05-04 11:56] VITALS: BP 120/70; PULSE 80; O2SAT 96; BMI 31.8
== END 2023-05-04 13:14 | disposition home or self-care (01) ==
PROVIDERS: PCP Internal Medicine; Visit Provider Internal Medicine
DX: M54.50 Low back pain, unspecified (principal); E78.5 Hyperlipidemia, unspecified; E11.9 Type 2 diabetes mellitus without complications; I10 Essential (primary) hypertension; Z00.00 Encounter for general adult medical examination without abnormal findings
CPT/HCPCS: 99397

== ENCOUNTER 2023-08-31 10:25 | Outpatient (AMB) | payer BC, SELFPAY ==
[2023-08-31 10:27] VITALS: BP 140/80; PULSE 91; TEMP 36.7; O2SAT 96; BMI 31.5
--- NOTE | 2023-08-31 10:27 | MHC.OFFWIV ---
Intake Vital Signs 08/31/23 10:27 Height 5 ft 11 in Weight 226 lb BMI 31.5 BP 140/80 H Blood Pressure Location Lt brachial Position Sitting Pulse 91 Temp 98.0 F Temp Source Temporal Artery Scan Pulse Oximetry (%) 96 Oxygen Delivery Method Room Air Intake Visit Reasons: EST/cough and fever(lobby masked) Intake Note: pt is here today for cough and fever started 2 days ago Patient Tobacco Use Status: Former Tobacco user Allergies lisinopril Allergy (Uncoded 05/04/23 12:03) upset stomach Do you need a note to return to daycare/school/sports/work: No HPI HPI Comments History of Present Illness Details 68 y/o male patient presents to walk in clinic with c/o cough, fatigue, body joint pain, fevers at home, anorexia x 3 days. Denies nausea or vomiting. Recent sick contact at work. COUNTS INCLUDE 234 BEDS AT [facility] Medical History Dysphagia Multinodular thyroid JIMENEZ (dyspnea on exertion) Enlarged thyroid Lower back pain HTN (hypertension) GERD (gastroesophageal reflux disease) Hyperlipidemia Diabetes Surgical History Hx of endoscopy H/O colonoscopy Social History Household Members: Spouse Household Members Other:: Housing: House Alcohol intake: current Alcohol intake frequency: holidays/special occasions only Alcohol type: beer and wine Patient Tobacco Use Status: Former Tobacco user e-Cigarette/Vaping Use: Never Used service: No Current occupational status: employed Current occupational exposures/hazards: No Cognitive needs: No Hearing needs: No Vision needs: No Review of Systems Const All systems reviewed & are unremarkable except as noted in HPI and below Physical Exam Vital Signs: Last Vital Signs Temp 98.0 F 08/31/23 10:27 Pulse 91 08/31/23 10:27 BP 140/80 H 08/31/23 10:27 Pulse Ox 96 08/31/23 10:27 Oxygen Delivery Method Room Air 08/31/23 10:27 BMI result Body Mass Index 31.5 Const General: comfortable and no acute distress HEENT Head: Yes normocephalic Ears: external ears normal and TM's normal bilaterally General nose exam: Abnormal mucous membranes and turbinates present boggy and erythematous Face and sinus: Yes sinuses nontender Mouth: Abnormal oral and palatal mucosa present erythematous Throat: Yes uvula midline and Yes postnasal drainage Resp Effort & Inspection: normal respiratory effort and Actively coughing Auscultation: clear to auscultation bilaterally, no crackles, no rales, no rhonchi and no wheezes Cardio Rate: regular rate Rhythm: regular rhythm Assessment & Plan Assessment & Plan (1) URI with cough and congestion: Code(s): J06.9 - Acute upper respiratory infection, unspecified Plan: - Rest - Warm fluids - Acetaminophen for pain relief - OTC cold remedies. - RTC if not better in 72 hours Plan - Rest - Warm fluids - Acetaminophen for pain relief - OTC cold remedies. - RTC if not better in 72 hours Medications: New oseltamivir (Tamiflu) 75 mg PO BID 5 days 10 caps 0RF J06.9 - Acute upper respiratory infection, unspecified Coding Level of Care Code Est Pt Level 3 (63414) Diagnoses URI with cough and congestion J06.9 Time Spent (min) 15
== END 2023-08-31 11:21 | disposition home or self-care (01) ==
PROVIDERS: PCP Internal Medicine; Visit Provider Nurse Practitioner Family
DX: J06.9 Acute upper respiratory infection, unspecified (principal)
CPT/HCPCS: 99213

== ENCOUNTER 2023-09-01 09:28 | Outpatient (REF) | payer BC, SELFPAY ==
[2023-09-01 12:04] LABS: Estimated Average Glucose 163 mg/dL; Hemoglobin A1c % 7.3 % (<6.0)
[2023-09-01 12:22] LABS: Alanine Aminotransferase 35 U/L (0-40); Albumin Level 4.2 g/dL (3.5-5.0); Alkaline Phosphatase 37 U/L (39-117); Anion Gap 14 (12-20); Aspartate Amino Transferase 29 U/L (5-37); Bilirubin Total 0.8 mg/dL (0.0-1.0); Blood Urea Nitrogen 20 mg/dL (9-16); Calcium 9.5 mg/dL (8.4-10.2); Carbon Dioxide 27 mmol/L (22-29); Chloride 102 mmol/L (96-108); Estimated Glomerular Filt Rate > 60; Glucose Fasting 168 mg/dL (60-99); Potassium 4.2 mmol/L (3.3-5.1); Sodium 139 mmol/L (135-145)
== END 2023-09-01 09:29 | disposition home or self-care (01) ==
LOC: HO.HMGCLDS 09:28
PROVIDERS: PCP Internal Medicine; Visit Provider Internal Medicine
DX: E78.5 Hyperlipidemia, unspecified (principal); E11.9 Type 2 diabetes mellitus without complications
CPT/HCPCS: 36415; 80053; 83036

== ENCOUNTER 2023-09-03 13:55 | Outpatient (REF) | payer BC, OTHER, SELFPAY ==
--- NOTE | ~2023-09-03 | US_ITS ---
EXAMINATION: US THYROID CLINICAL INFORMATION: Nontoxic goiter, unspecified. COMPARISON: Ultrasound soft tissue head/neck thyroid dated 06/15/2022 and 02/20/2022. TECHNIQUE: Linear transducer grayscale and color Doppler examination with attention to the region of the thyroid. FINDINGS: SIZE: Measurements of the thyroid lobes and nodules are given in sagittal, anteroposterior and transverse dimensions respectively. Right Thyroid Lobe: 5.6 x 1.4 x 2.3 cm, volume 9.4 mL. Previously 5.1 x 1.5 x 1.6 cm, volume 6.3 mL. Parenchyma: The gland echotexture is homogeneous. Thyroid vascularity is normal. Left Thyroid Lobe: 5.3 x 1.6 x 2.0 cm, volume 8.9 mL. Previously 4.9 x 1.6 x 2.0 cm, volume 8.1 mL. Parenchyma: The gland echotexture is homogeneous. Thyroid vascularity is normal. Isthmus: 0.4 cm in maximum AP dimension. Previously 0.6 cm. Estimated total number of nodules greater than or equal to 1 cm: 2. [employer] nodules are described as follows: 1. Location: Right superior. Size: 1.0 x 0.6 x 0.6 cm, volume 0.2 mL. Previously: 0.9 x 0.6 x 0.8 cm, volume 0.2 mL. Nodule characteristics: Composition: Solid (2). Echogenicity: Hypoechoic (2). Shape: Not taller than wide (0). Margins: Ill-defined (0). Echogenic Foci: None (0). ACR TI-RADS total points: 4 Previous: 7 ACR TI-RADS category: 4 Previous: 5 Significant change in size (>/= 20% in 2 dimensions and minimal increase of 2 mm or 50% or greater increase in volume): No Change in features: Yes Change in ACR TI-RADS risk category: Yes 2. Location: Right mid. Size: 0.4 x 0.3 x 0.4 cm, volume 0.03 mL. Previously: 0.4 x 0.2 x 0.4 cm, volume 0.02 mL. Nodule characteristics: Composition: Solid (2). Echogenicity: Hypoechoic (2). Shape: Not taller than wide (0). Margins: Ill-defined (0). Echogenic Foci: None (0). ACR TI-RADS total points: 4 Previous: 0 ACR TI-RADS category: 4 Previous: 1 Significant change in size (>/= 20% in 2 dimensions and minimal increase of 2 mm or 50% or greater increase in volume): Yes Change in features: Yes Change in ACR TI-RADS risk category: Yes 3. Location: Right inferior. Size: 0.8 x 0.4 x 0.7 cm, volume 0.12 mL. Previously: 0.8 x 0.5 x 0.6 cm, volume 0.12 mL. Nodule characteristics: Composition: Solid (2). Echogenicity: Isoechoic (1). Shape: Not taller than wide (0). Margins: Ill-defined (0). Echogenic Foci: None (0). ACR TI-RADS total points: 3 Previous: 0 ACR TI-RADS category: 3 Previous: 1 Significant change in size (>/= 20% in 2 dimensions and minimal increase of 2 mm or 50% or greater increase in volume): No Change in features: Yes Change in ACR TI-RADS risk category: Yes 4. Location: Left inferior. Size: 1.7 x 1.4 x 1.5 cm, volume 1.9 mL. Previously: 1.5 x 1.1 x 1.3 cm, volume 1.1 mL. Nodule characteristics: Composition: Solid/almost completely solid (2). Echogenicity: Hyperechoic (1). Shape: Not taller than wide (0). Margins: Smooth (0). Echogenic Foci: None (0). ACR TI-RADS total points: 3 Previous: 6 ACR TI-RADS category: 3 Previous: 4 Significant change in size (>/= 20% in 2 dimensions and minimal increase of 2 mm or 50% or greater increase in volume): Yes Change in features: Yes Change in ACR TI-RADS risk category: Yes 5. Location: Left inferior. Size: 0.8 x 0.7 x 0.8 cm, volume 0.2 mL. Previously: 1.1 x 1.0 x 1.2 cm, volume 0.7 mL. Nodule characteristics: Composition: Mixed cystic and solid (1). Echogenicity: Hypoechoic (2). Shape: Not taller than wide (0). Margins: Ill-defined (0). Echogenic Foci: None (0). ACR TI-RADS total points: 3 Previous: 3 ACR TI-RADS category: 3 Previous: 3 Significant change in size (>/= 20% in 2 dimensions and minimal increase of 2 mm or 50% or greater increase in volume): No Change in features: No Change in ACR TI-RADS risk category: No NODES: No lymphadenopathy is seen in the tissue surrounding the thyroid gland. US/US thyroid IMPRESSION: 1. Bilateral thyroid nodules are redemonstrated, as detailed. Recommend continued thyroid ultrasound surveillance. 2. There is a borderline goiter. ACR TI-RADS RECOMMENDATION REFERENCE: Ultrasound-guided fine-needle aspiration, follow up ultrasound, no further followup. * TR1 (0 point) and TR2 (2 points): No FNA or followup * TR3 (3 points): FNA if more than or equal to 2.5 cm in maximum dimension, follow up ultrasound in 1, 3 and 5 years if 1.5 to 2.4 cm in maximum dimension. * TR4 (4-6 points): FNA if more than or equal to 1.5 cm in maximum dimension, follow up ultrasound in 1, 2, 3 and 5 years if 1 to 1.4 cm in maximum dimension. * TR5 (more than or equal to 7 points): FNA if more than or equal to 1 cm in maximum dimension, follow up ultrasound every year for 5 years if 0.5 to 0.9 cm in maximum dimension. * TR3, TR4 or TR5 nodules that are below the size threshold for follow up receive no followup.
== END 2023-09-03 13:56 | disposition home or self-care (01) ==
LOC: HO.US 13:55
PROVIDERS: Visit Provider Internal Medicine Endocrinology, Diabetes & Metabolism
DX: E04.9 Nontoxic goiter, unspecified (principal)
CPT/HCPCS: 76536

== ENCOUNTER 2023-09-11 10:57 | Outpatient (AMB) | payer BC, SELFPAY ==
[2023-09-11 11:00] VITALS: BP 130/76; PULSE 80; O2SAT 97; BMI 31.2
--- NOTE | 2023-09-11 11:00 | A.OFFPC_ITS ---
Vital Signs 09/11/23 11:00 Height 5 ft 11 in Weight 224 lb BMI 31.2 BP 130/76 Blood Pressure Location Lt brachial Position Sitting Pulse 80 Pulse Source Pulse Oximeter Pulse Oximetry (%) 97 Oxygen Delivery Method Room Air Intake Visit Reasons: F/u bp and cholesterol Intake Note: Pt is here today for follow up visit on BP. Pt needs a refill on free style lancets. Allergies lisinopril Allergy (Uncoded 09/11/23 11:03) upset stomach Medication List - Last Reconciled 09/11/23 by Janell Willis MD amlodipine 5 mg PO DAILY ascorbate calcium (vitamin C) 500 mg PO DAILY azelastine-fluticasone 137-50 mcg/spray (Dymista) 1 spray intranasal BID blood-glucose meter As directed cholecalciferol (vitamin D3) 25 mcg PO DAILY COVID-19 antigen test As directed COVID-19 antigen test (BinaxNOW COVID-19 Ag Card Home Test kit) As directed ferrous sulfate (Feosol) 325 mg PO DAILY FreeStyle Lite Meter (blood-glucose meter) 1 ea miscellaneous DAILY NS FreeStyle Lite Strips (blood sugar diagnostic) test blood sugar twice daily NS glipizide 5 mg PO BID lancets (FreeStyle Lancets) test blood sugar daily metformin 1,000 mg PO BID omeprazole 20 mg PO DAILY oseltamivir (Tamiflu) 75 mg PO BID 5 days pravastatin 20 mg PO DAILY sertraline 25 mg PO DAILY Tobacco use date assessed: 09/11/23 Fall risk assessment: No Falls in past year Last assessed Fall Risk: 09/11/23 Dental Screening Dental Screen Date: 09/11/23 Did you have a dental visit in the last 12 months?: Yes Did you have a dental problem in the last 6 months where you did not have access to dental care?: No Was dental information given to patient?: Patient has dentist HPI F/u bp and cholesterol HPI Details Pt presents for f/u HTN, hyperlipid, DM 2, stable on meds. Patient reports episodes of witnessed apnea by his [facility] Medical History Dysphagia Multinodular thyroid JIMENEZ (dyspnea on exertion) Enlarged thyroid Lower back pain HTN (hypertension) GERD (gastroesophageal reflux disease) Hyperlipidemia Diabetes Surgical History Hx of endoscopy H/O colonoscopy Social History Household Members: Spouse Household Members Other:: Housing: House Alcohol intake: current Alcohol intake frequency: holidays/special occasions only Alcohol type: beer and wine Patient Tobacco Use Status: Former Tobacco user e-Cigarette/Vaping Use: Never Used service: No Current occupational status: employed Current occupational exposures/hazards: No Cognitive needs: No Hearing needs: No Vision needs: No Questionnaire PHQ-9 Over the last 2 weeks, how often have you been bothered by any of the following problems? 1. Little interest or pleasure in doing things: several days 2. Feeling down, depressed, or hopeless: not at all 3. Trouble falling or staying asleep, or sleeping too much: not at all 4. Feeling tired or having little energy: several days 5. Poor appetite or overeating: not at all 6. Feeling bad about yourself - or that you are a failure or have let yourself or your family down: not at all 7. Trouble concentrating on things, such as reading the newspaper or watching television: not at all 8. Moving or speaking so slowly that other people could have noticed. Or the opposite - being so fidgety or restless that you have been moving around a lot more than usual: not at all 9. Thoughts that you would be better off or of hurting yourself in some way: not at all Total score: 2 Depression Screening Interpretation: Negative Depression Screening Done: Yes Source: Developed by Drs. Kennedy Bradley, Melissa Farris, Shayan Ashton and colleagues, with an educational trisha from [employer]. Thrive Questionnaire Date Thrive assessed: 09/11/23 I am a: Patient What is your living situation today?: I have a steady place to live Within the past 12 months, did the food you bought not last and you didn't have the money to get more?: Never true Within the past 12 months, did you worry whether your food would run out before you got money to buy more?: Never true Do you have trouble paying for medicines?: No Do you have trouble getting transportation to medical appointments?: No Do you have trouble paying your heating and electricity bill?: No Do you have trouble taking care of your child, family member or friend?: No Do you have trouble with day-to-day activities such as bathing, preparing meals, shopping, managing finances, etc.?: No Are you currently unemployed and looking for a job?: No Are you interested in more education?: No Please select the resources that you would like help with: None Currently or been in a relationship where the following occur: no concerns reported THRIVE Score: 0 AUDIT C Alcohol Use Questionnaire (AUDIT-C) 1. How often do you have a drink containing alcohol?: Never 3. How often do you have six or more drinks on one occasion?: Never Total Score: 0 ROCKY-7 AMB Questionnaire ROCKY-7 Date ROCKY - 7 assessed: 09/11/23 Feeling nervous, anxious, or on edge: 0 = Not at all Not being able to stop or control worryin = Not at all Worrying too much about different things: 0 = Not at all Trouble relaxin = Not at all Being so restless that it is hard to sit still: 0 = Not at all Becoming easily annoyed or irritable: 0 = Not at all Feeling afraid as if something awful might happen: 0 = Not at all Total ROCKY-7 score (0-4 normal; 5-9 mild; 10-14 moderate; 15-21 severe): 0 Source: Developed by Drs. Kennedy Bradley, Melissa Farris, Shayan Ashton and colleagues, with an educational trisha from [employer]. Review of Systems Const All systems reviewed & are unremarkable except as noted in HPI and below Reports no additional complaints Eyes Reports no additional complaints ENT Reports no additional complaints Card Reports no additional complaints Resp Reports no additional complaints GI Reports no additional complaints Reports no additional complaints Musc Reports no additional complaints Physical exam (Primary Care) Vital Signs: Last Vital Signs Pulse 80 09/11/23 11:00 BP 130/76 09/11/23 11:00 Pulse Ox 97 09/11/23 11:00 Oxygen Delivery Method Room Air 09/11/23 11:00 BMI result Body Mass Index 31.2 Tobacco/Smoking Status: Tobacco use Status Tobacco use date assessed 09/11/23 09/11/23 11:05 Patient Tobacco Use Status Former Tobacco user 02/13/24 11:05 e-Cigarette/Vaping Use Never Used 09/11/23 11:05 PHQ-9: PHQ-9 Score PHQ-9: Total score 2 09/11/23 11:07 Depression Screening Interpretation: Negative Thrive Assessment: Date of Thrive Assessment Date Thrive assessed 09/11/23 09/11/23 11:07 Currently or been in a relationship where the following occur: no concerns reported Const General: no acute distress HENMT Head: Yes normal to inspection Ears: hearing grossly normal bilaterally Face and sinus: Yes normal facial exam Mouth: Normal oral and palatal mucosa present Throat: Yes posterior oropharynx normal Eyes General: appearance normal, both eyes and all related structures Neck Neck: Yes no lymphadenopathy and Yes supple Resp Effort & Inspection: normal respiratory effort Auscultation: clear to auscultation bilaterally Cardio Rhythm: regular rhythm Heart sounds: S1 normal heart sound present and S2 normal heart sound present GI Inspection: Yes normal to inspection Palpation (GI): Soft to palpation Percussion: Yes normal to percussion Auscultation: normal bowel sounds Assessment and Plan Assessment & Plan (1) Diabetes: Comment: pt refused to add GLP1 receptor agonist 09/22 Code(s): E11.9 - Type 2 diabetes mellitus without complications Plan: A1C is 7.3, ADA diet, exercise, weight loss discussed. Patient will continue glipizide and metformin. He refuses to add GLP 1 receptor agonist and his insurance doesn't cover SGLT 2 INHIBITOR, f/u in 4 months (2) Hyperlipidemia: Code(s): E78.5 - Hyperlipidemia, unspecified Plan: cont statin (3) HTN (hypertension): Comment: Intolerant to lisinopril, upset stomach Code(s): I10 - Essential (primary) hypertension Plan: cont Amlodipine (4) Anemia: Code(s): D64.9 - Anemia, unspecified Plan: monitor CBC/IRON (5) Gastric polyps: Comment: s/p GI bleed, EGD Q 3-[address] Deal, last 07/20 Code(s): K31.7 - Polyp of stomach and duodenum Plan: f/u with GI Orders: Orders Hemoglobin A1c 4 Months D64.9 - Anemia, unspecified, E11.9 - Type 2 diabetes mellitus without complications, E78.5 - Hyperlipidemia, unspecified, I10 - Essen tial (primary) hypertension Lipid Panel 4 Months D64.9 - Anemia, unspecified, E11.9 - Type 2 diabetes mellitus without complications, E78.5 - Hyperlipidemia, unspecified, I10 - Essential (primary) hypertension Microalbumin, Random (w Creat) 4 Months D64.9 - Anemia, unspecified, E11.9 - Type 2 diabetes mellitus without complications, E78.5 - Hyperlipidemia, unspecified, I10 - Essential (primary) hypertension Complete Blood Count Auto Diff 4 Months D64.9 - Anemia, unspecified, E11.9 - Type 2 diabetes mellitus without complications, E78.5 - Hyperlipidemia, unspecified, I10 - Essential (primary) hypertension Comprehensive Met. Panel 4 Months D64.9 - Anemia, unspecified, E11.9 - Type 2 di abetes mellitus without complications, E78.5 - Hyperlipidemia, unspecified, I10 - Essential (primary) hypertension PSA,Total (Free>4and<10) 4 Months D64.9 - Anemia, unspecified, E11.9 - Type 2 diabetes mellitus without complications, E78.5 - Hyperlipidemia, unspecified, I10 - Essential (primary) hypertension IRON PROFILE 4 Months D64.9 - Anemia, unspecified Medications: New COVID-19 antigen test (BinaxNOW COVID-19 Ag Card Home Test kit) As directed 3 ea 3RF Coding Level of Care Code Est Pt Level 4 (44336) Diagnoses Diabetes E11.9 Hyperlipidemia E78.5 HTN (hypertension) I10 Anemia D64.9 Gastric polyps K31.7
== END 2023-09-11 11:33 | disposition home or self-care (01) ==
LOC: HO.HMGC 10:57
PROVIDERS: PCP Internal Medicine; Visit Provider Internal Medicine
DX: E11.9 Type 2 diabetes mellitus without complications (principal); E78.5 Hyperlipidemia, unspecified; I10 Essential (primary) hypertension; D64.9 Anemia, unspecified; K31.7 Polyp of stomach and duodenum
CPT/HCPCS: 99214

== ENCOUNTER 2023-10-29 12:56 | Outpatient (AMB) | payer BC, SELFPAY ==
--- NOTE | 2023-10-29 12:57 | MHC.OFFVIS ---
Intake Vital Signs 10/29/23 13:03 Height 5 ft 11 in Weight 228 lb 2.855 oz BMI 31.8 BP 126/80 Blood Pressure Location Lt brachial Position Sitting Pulse 75 Pulse Source Pulse Oximeter Intake Visit Reasons: NTMNG-confirmed Intake Note: Patient present today for NTMNG follow up visit. Hearing Consultant Required: No Accompanied by: Self / Same As Patient Allergies lisinopril Allergy (Uncoded 10/29/23 13:06) upset stomach Medication List - Last Reconciled 10/29/23 by Kennedy Vargas MD amlodipine 5 mg PO DAILY ascorbate calcium (vitamin C) 500 mg PO DAILY azelastine-fluticasone 137-50 mcg/spray (Dymista) 1 spray intranasal BID blood-glucose meter As directed cholecalciferol (vitamin D3) 25 mcg PO DAILY COVID-19 antigen test As directed COVID-19 antigen test (BinaxNOW COVID-19 Ag Card Home Test kit) As directed ferrous sulfate (Feosol) 325 mg PO DAILY FreeStyle Lite Meter (blood-glucose meter) 1 ea miscellaneous DAILY NS FreeStyle Lite Strips (blood sugar diagnostic) test blood sugar twice daily NS glipizide 5 mg PO BID lancets (FreeStyle Lancets) test blood sugar daily metformin 1,000 mg PO BID omeprazole 20 mg PO DAILY oseltamivir (Tamiflu) 75 mg PO BID 5 days pravastatin 20 mg PO DAILY sertraline 25 mg PO DAILY HPI HPI Comments History of Present Illness Details 68 YO M with PMHx T2DM and a recently diagnosed multinodular thyroid who is seen in consultation for multinodular thyroid at the request of PCP.. The patient last saw Dr. Painting on 10/26/2022 Was initially diagnosed with multinodular thyroid in 05/2022 with thyroid US revealing bilateral thyroid nodules. Currently does complain of dysphagia, particularly with dry cookies. Denies hoarseness of voice. Denies sensation of swelling in the neck or difficulty breathing while lying flat. Denies any symptoms of hyper or hypothyroidism. Denies any history of head or neck irradiation. Denies any family history of thyroid cancer. Thyroid US: 06/15/2022 Right Thyroid Lobe: 5.1 x 1.5 x 1.6 cm, volume 6.3 mL. Previously 5.2 x 1.5 x 2.1 cm, volume 8.6 mL. Parenchyma: The gland echotexture is homogeneous. Thyroid vascularity is normal. Left Thyroid Lobe: 4.9 x 1.6 x 2.0 cm, volume 8.1 mL. Previously 5.4 x 1.4 x 1.9 cm, volume 7.5 mL. Parenchyma: The gland echotexture is homogeneous. Thyroid vascularity is normal. Isthmus: 0.60 cm in maximum AP dimension. Previously 0.40 cm. Estimated total number of nodules greater than or equal to 1 cm: 2. Hose Finisher nodules are described as follows: 1.? Location: Right inferior. ?? ? Size: 0.84 x 0.50 x 0.60 cm, volume 0.13 mL. ?? ? Previously: 0.60 x 0.40 x 0.60 cm, volume 0.09 mL. ?? ? Nodule characteristics: ?? ? Composition: Spongiform (0). ?? ? Echogenicity: Anechoic (0). ?? ? Shape: Not taller than wide (0). ?? ? Margins: Smooth (0). ?? ? Echogenic Foci: None (0). ?? ? ACR TI-RADS total points: 0 Previous: 3 ?? ? ACR TI-RADS category: 1 Previous: 3 ? Significant change in size (>/= 20% in 2 dimensions and minimal increase of 2 mm or 50% or greater increase in volume): None ?? ? Change in features: None ?? ? Change in ACR TI-RADS risk category: Improved 2.? Location: Right mid. ?? ? Size: 0.40 x 0.20 x 0.40 cm, volume 0.02 mL. ?? ? Previously: Not seen on the previous study. ?? ? Nodule characteristics: ?? ? Composition: Spongiform (0). ?? ? Echogenicity: Anechoic (0). ?? ? Shape: Not taller than wide (0). ?? ? Margins: Smooth (0). ?? ? Echogenic Foci: None (0).? ACR TI-RADS total points: 0 ?? ? ACR TI-RADS category: 1 ?? ? 3.? Location: Right superior. ?? ? Size: 0.90 x 0.60 x 0.80 cm, volume 0.20 mL. ?? ? Previously: 1.0 x 0.70 x 0.60 cm, volume 0.21 mL. ?? ? Nodule characteristics: ?? ? Composition: Solid/almost completely solid (2). ?? ? Echogenicity: Hypoechoic (2). ?? ? Shape: Not taller than wide (0). ?? ? Margins: Smooth (0). ?? ? Echogenic Foci: Punctate echogenic foci (3). ? ACR TI-RADS total points: 7 Previous: 8 ?? ? ACR TI-RADS category: 5 Previous: 5 ? Significant change in size (>/= 20% in 2 dimensions and minimal increase of 2 mm or 50% or greater increase in volume): None ?? ? Change in features: None ?? ? Change in ACR TI-RADS risk category: None 4.? Location: Left inferior. ?? ? Size: 1.5 x 1.1 x 1.3 cm, volume 1.1 mL. ?? ? Previously: 1.5 x 1.0 x 1.2 cm, volume 0.85 mL. ?? ? Nodule characteristics: ?? ? Composition: Solid/almost completely solid (2). ?? ? Echogenicity: Hyperechoic (1). ?? ? Shape: Not taller than wide (0). ?? ? Margins: Smooth (0). ?? ? Echogenic Foci: Punctate echogenic foci (3).? ACR TI-RADS total points: 6 Previous: 3 ?? ? ACR TI-RADS category: 4 Previous: 3 ? Significant change in size (>/= 20% in 2 dimensions and minimal increase of 2 mm or 50% or greater increase in volume): None ?? ? Change in features: None ?? ? Change in ACR TI-RADS risk category: Increased 5.? Location: Left inferior. ?? ? Size: 1.1 x 1.0 x 1.2 cm, volume 0.72 mL. ?? ? Previously: 1.2 x 0.80 x 0.10 cm, volume 0.50 mL. ?? ? Nodule characteristics: ?? ? Composition: Mixed cystic and solid (1). ?? ? Echogenicity: Hypoechoic (2). ?? ? Shape: Not taller than wide (0). ?? ? Margins: Smooth (0). ?? ? Echogenic Foci: None (0). ?? ? ACR TI-RADS total points: 3 Previous: 3 ?? ? ACR TI-RADS category: 3 Previous: 3 ? Significant change in size (>/= 20% in 2 dimensions and minimal increase of 2 mm or 50% or greater increase in volume): None ?? ? Change in features: None ?? ? Change in ACR TI-RADS risk category: Increased NODES: No lymphadenopathy is seen in the tissue surrounding the thyroid gland. Labs: No recent pertinent labs to review today Recent ultrasound showed no change in the size of the nodules [facility] Medical History Dysphagia Multinodular thyroid JIMENEZ (dyspnea on exertion) Enlarged thyroid Lower back pain HTN (hypertension) GERD (gastroesophageal reflux disease) Hyperlipidemia Diabetes Surgical History Hx of endoscopy H/O colonoscopy Social History Household Members: Spouse Household Members Other:: Housing: House Alcohol intake: current Alcohol intake frequency: holidays/special occasions only Alcohol type: beer and wine Patient Tobacco Use Status: Former Tobacco user e-Cigarette/Vaping Use: Never Used service: No Current occupational status: employed Current occupational exposures/hazards: No Cognitive needs: No Hearing needs: No Vision needs: No Physical Exam Vital Signs: Last Vital Signs Pulse 75 10/29/23 13:03 BP 126/80 10/29/23 13:03 BMI result Body Mass Index 31.8 Const Other: Thyroid gland is normal size weighs about 15 g. There are no palpable thyroid nodule Assessment & Plan Assessment & Plan (1) Multinodular thyroid: Code(s): E04.2 - Nontoxic multinodular goiter Plan: 68-year-old male with a history of multinodular goiter with predominantly subcentimeter nodules. He appears to be clinically euthyroid. Dr. Painting performed an ultrasound and did not feel any nodules warranted biopsy. Recent thyroid ultrasound showed no change in the size of the nodules. Plan is to check TSH and free T4. Assuming above is normal, patient returned to the care of his primary care provider who could order a thyroid ultrasound about 2-3 years time. If there is any change in the size or characteristics of the nodules, the patient returned back to endocrinology Orders: Orders Free T4 (Free Thyroxine) Today E04.2 - Nontoxic multinodular goiter Thyroid Stimulating Hormone Today E04.2 - Nontoxic multinodular goiter Coding Level of Care Code Est Pt Level 3 (69901) Diagnoses Multinodular thyroid E04.2
[2023-10-29 13:03] VITALS: BP 126/80; PULSE 75; BMI 31.8
== END 2023-10-29 13:16 | disposition home or self-care (01) ==
PROVIDERS: PCP Internal Medicine; Visit Provider Internal Medicine Endocrinology, Diabetes & Metabolism
DX: E04.2 Nontoxic multinodular goiter (principal)
CPT/HCPCS: 99213

== ENCOUNTER → 2023-10-29 12:56 | Outpatient (BNVA) | payer BC, SELFPAY | PROVIDERS: PCP Internal Medicine; Visit Provider Internal Medicine Endocrinology, Diabetes & Metabolism ==

== ENCOUNTER 2023-11-16 08:09 | Outpatient (REF) | payer BC, SELFPAY ==
[2023-11-16 10:25] LABS: MANUAL DIFF FLAG NO
[2023-11-16 10:45] LABS: Basophils Absolute Auto 0.1 X10*3/uL (0.0-0.2); Basophils Percent Auto 0.5 % (0-2); Eosinophils Absolute Auto 0.4 X10*3/uL (0.0-0.4); Eosinophils Percent Auto 4.2 % (0-4); Hematocrit 46.5 % (42.0-52.0); Hemoglobin 15.7 g/dl (14.0-18.0); Imm Gran Abs Auto 0.03 X10*3/uL (0.00-0.03); Imm Gran Pct Auto 0.3 % (0.0-0.4); Lymphocytes Absolute Auto 2.4 X10*3/uL (1.2-4.9); Lymphocytes Percent Auto 24.3 % (20-40); Mean Corpuscular HGB Conc 33.8 g/dl (31.0-36.0); Mean Corpuscular Hemoglobin 28.9 pg (27.0-33.0); Mean Corpuscular Volume 85.6 fL (80.0-98.0); Mean Platelet Volume 10.6 fL (9.4-12.4); Monocytes Absolute Auto 0.8 X10*3/uL (0.1-1.2); Monocytes Percent Auto 7.9 % (2-11); Neutrophils Absolute Auto 6.1 x10*3/uL (2.0-8.3); Neutrophils Percent Auto 62.8 % (45-73); Platelet Count 208 X10*3/uL (160-400); Red Blood Count 5.43 X10*6/uL (4.60-5.80); Red Cell Distribution Width 12.4 % (11.0-16.0); White Blood Count 9.8 X10*3/uL (4.8-10.8)
[2023-11-16 11:09] LABS: Estimated Average Glucose 163 mg/dL; Hemoglobin A1c % 7.3 % (<6.0)
[2023-11-16 11:20] LABS: PSA,Total (Free>4and<10) 1.13 ng/mL (0.00-4.00)
[2023-11-16 11:34] LABS: Creatinine Urine 137.29 mg/dL; Microalbum/Creatinine Ratio Ur 3.6 ug/mg cr (<30)
[2023-11-16 11:53] LABS: Free T4 (Free Thyroxine) 0.98 ng/dL (0.71-1.85)
[2023-11-16 12:12] LABS: Alanine Aminotransferase 34 U/L (0-40); Albumin Level 4.3 g/dL (3.5-5.0); Alkaline Phosphatase 40 U/L (39-117); Anion Gap 13 (12-20); Aspartate Amino Transferase 30 U/L (5-37); Bilirubin Total 0.5 mg/dL (0.0-1.0); Blood Urea Nitrogen 14 mg/dL (9-16); Calcium 9.6 mg/dL (8.4-10.2); Carbon Dioxide 27 mmol/L (22-29); Chloride 104 mmol/L (96-108); Cholesterol 149 mg/dL (<200); Estimated Glomerular Filt Rate > 60; Glucose Random 111 mg/dL (60-115); HDL Cholesterol 37 mg/dL (>40); Iron 47 mcg/dL (45-160); LDL Cholesterol Calculated 90 mg/dL (<100); Percent Iron Saturation 15 % (15-50); Potassium 4.1 mmol/L (3.3-5.1); Sodium 140 mmol/L (135-145); Thyroid Stimulating Hormone 0.96 uIU/mL (0.32-4.0); Total Iron Binding Capacity 323 mcg/dL (228-428); Total Protein 7.8 g/dL (6.5-8.0); Triglycerides 110 mg/dL (<150); Unsaturated Iron Binding 276 ug/dL
== END 2023-11-16 08:10 | disposition home or self-care (01) ==
LOC: HO.HMGCLDS 08:09
PROVIDERS: PCP Internal Medicine; Referring Provider Internal Medicine Endocrinology, Diabetes & Metabolism; Visit Provider Internal Medicine
DX: Z12.5 Encounter for screening for malignant neoplasm of prostate (principal); E11.9 Type 2 diabetes mellitus without complications; E78.5 Hyperlipidemia, unspecified; I10 Essential (primary) hypertension; D64.9 Anemia, unspecified; E04.2 Nontoxic multinodular goiter
CPT/HCPCS: 36415; 80053; 80061; 82043; 82570; 83036; 83540; 84153; 84439; 84443; 85025

== ENCOUNTER 2023-12-05 09:27 | Outpatient (AMB) | payer BC, SELFPAY ==
[2023-12-05 09:29] VITALS: BP 128/80; PULSE 86; O2SAT 96; BMI 31.1
--- NOTE | 2023-12-05 09:29 | MHC.PC.OV ---
Vital Signs 12/05/23 09:29 Height 5 ft 11 in Weight 223 lb BMI 31.1 BP 128/80 Blood Pressure Location Lt brachial Position Sitting Pulse 86 Pulse Source Pulse Oximeter Pulse Oximetry (%) 96 Oxygen Delivery Method Room Air Intake Visit Reasons: Annual PE overdue April Intake Note: Pt is here today for PE. Allergies lisinopril Allergy (Uncoded 12/05/23 09:29) upset stomach Medication List - Last Reconciled 12/05/23 by Janell Willis MD amlodipine 5 mg PO DAILY ascorbate calcium (vitamin C) 500 mg PO DAILY azelastine-fluticasone 137-50 mcg/spray (Dymista) 1 spray intranasal BID blood-glucose meter As directed cholecalciferol (vitamin D3) 25 mcg PO DAILY COVID-19 antigen test As directed COVID-19 antigen test (BinaxNOW COVID-19 Ag Card Home Test kit) As directed ferrous sulfate (Feosol) 325 mg PO DAILY FreeStyle Lite Meter (blood-glucose meter) 1 ea miscellaneous DAILY NS FreeStyle Lite Strips (blood sugar diagnostic) test blood sugar twice daily NS glipizide 5 mg PO BID lancets (FreeStyle Lancets) test blood sugar daily metformin 1,000 mg PO BID omeprazole 20 mg PO DAILY oseltamivir (Tamiflu) 75 mg PO BID 5 days polyethylene glycol 3350 17 grams PO Q10M 8 doses pravastatin 20 mg PO DAILY sertraline 25 mg PO DAILY Tobacco use date assessed: 12/05/23 Fall risk assessment: No Falls in past year Last assessed Fall Risk: 12/05/23 Dental Screening Dental Screen Date: 09/11/23 HPI Annual PE overdue April HPI Details Pt presents for PE. Patient is looking forward to longterm in 2 months. [facility] Medical History (Updated 12/05/23 @ 15:41 by Janell Willis MD) Enlarged thyroid JIMENEZ (dyspnea on exertion) Lower back pain HTN (hypertension) GERD (gastroesophageal reflux disease) Hyperlipidemia Diabetes Surgical History (Updated 12/05/23 @ 10:18 by Janell Willis MD) Hx of endoscopy H/O colonoscopy Social History Household Members: Spouse Household Members Other:: Housing: House Alcohol intake: current Alcohol intake frequency: holidays/special occasions only Alcohol type: beer and wine Patient Tobacco Use Status: Former Tobacco user e-Cigarette/Vaping Use: Never Used service: No Current occupational status: employed Current occupational exposures/hazards: No Cognitive needs: No Hearing needs: No Vision needs: No Questionnaire Thrive Questionnaire Date Thrive assessed: 09/11/23 ROCKY-7 AMB Questionnaire ROCKY-7 Date ROCKY - 7 assessed: 09/11/23 Source: Developed by Drs. Kennedy Bradley, Melissa Farris, Shayan Ashton and colleagues, with an educational trisha from [employer]. Review of Systems Const All systems reviewed & are unremarkable except as noted in HPI and below Reports no additional complaints Eyes Reports no additional complaints ENT Reports no additional complaints Card Reports no additional complaints Resp Reports no additional complaints GI Reports no additional complaints Reports no additional complaints Musc Reports no additional complaints Physical exam (Primary Care) Vital Signs: Last Vital Signs Pulse 86 12/05/23 09:29 BP 128/80 12/05/23 09:29 Pulse Ox 96 12/05/23 09:29 Oxygen Delivery Method Room Air 12/05/23 09:29 BMI result Body Mass Index 31.1 Tobacco/Smoking Status: Tobacco use Status Tobacco use date assessed 12/05/23 12/05/23 09:37 Patient Tobacco Use Status Former Tobacco user 12/05/23 09:37 e-Cigarette/Vaping Use Never Used 12/05/23 09:37 Thrive Assessment: Date of Thrive Assessment Date Thrive assessed 09/11/23 12/05/23 09:37 Const General: no acute distress HENMT Head: Yes normal to inspection Ears: hearing grossly normal bilaterally Throat: Yes posterior oropharynx normal Eyes General: appearance normal, both eyes and all related structures Neck Neck: Yes no lymphadenopathy and Yes supple Resp Effort & Inspection: normal respiratory effort Auscultation: clear to auscultation bilaterally Cardio Rhythm: regular rhythm Heart sounds: S1 normal heart sound present and S2 normal heart sound present GI Inspection: Yes normal to inspection Palpation (GI): Soft to palpation Percussion: Yes normal to percussion Auscultation: normal bowel sounds Assessment and Plan Assessment & Plan (1) Diabetes: Comment: pt refused to add GLP1 receptor agonist 09/22 Code(s): E11.9 - Type 2 diabetes mellitus without complications Plan: A1C is 7.3, ADA diet increase exercise weight loss discussed with the patient he declined taking additional medications. Patient will continue glipizide and metformin return in 5 months with a fasting labs before (2) Hyperlipidemia: Code(s): E78.5 - Hyperlipidemia, unspecified Plan: Continue statin (3) HTN (hypertension): Comment: Intolerant to lisinopril, upset stomach Code(s): I10 - Essential (primary) hypertension Plan: Continue current medications (4) Annual physical exam: Code(s): Z00.00 - Encounter for general adult medical examination without abnormal findings Plan: Well-balanced diet regular physical activity weight loss discussed with the patient he is up-to-date with the colonoscopy Orders: Orders Hemoglobin A1c 5 Months E11.9 - Type 2 diabetes mellitus without complications, E78.5 - Hyperlipidemia, unspecified, I10 - Essential (primary) hypertension Lipid Panel 5 Months E11.9 - Type 2 diabetes mellitus without complications, E78.5 - Hyperlipidemia, unspecified, I10 - Essential (primary) hypertension Microalbumin, Random (w Creat) 5 Months E11.9 - Type 2 diabetes mellitus without complications, E78.5 - Hyperlipidemia, unspecified, I10 - Essential (primary) hypertension Comprehensive [place]. Panel Fast 5 Months E11.9 - Type 2 diabetes mellitus without complications, E78.5 - Hyperlipidemia, unspecified, I10 - Essential (primary) hypertension Complete Blood Count Auto Diff 5 Months E11.9 - Type 2 diabetes mellitus without complications, E78.5 - Hyperlipidemia, unspecified, I10 - Essential (primary) hypertension Coding Level of Care Code Est Pt Prev Care >65y(12095) Diagnoses Diabetes E11.9 Hyperlipidemia E78.5 HTN (hypertension) I10 Annual physical exam Z00.00
== END 2023-12-05 10:27 | disposition home or self-care (01) ==
PROVIDERS: PCP Internal Medicine; Visit Provider Internal Medicine
DX: E11.9 Type 2 diabetes mellitus without complications (principal); E78.5 Hyperlipidemia, unspecified; I10 Essential (primary) hypertension; Z00.00 Encounter for general adult medical examination without abnormal findings
CPT/HCPCS: 99397

== ENCOUNTER 2024-03-24 13:28 | Outpatient (AMB) | payer BC, MEDICARE, SELFPAY ==
--- NOTE | 2024-03-24 14:07 | MHC.PC.OV ---
Vital Signs 03/24/24 14:09 Height 5 ft 11 in Weight 228 lb BMI 31.8 BP 136/80 Blood Pressure Location Lt brachial Position Sitting Pulse 74 Pulse Source Pulse Oximeter Pulse Oximetry (%) 98 Oxygen Delivery Method Room Air Intake Visit Reasons: LT eye infection Intake Note: Pt is lucian today for a sick visit. Pt c/o L eye redness, discharge and itchiness. Allergies lisinopril Allergy (Uncoded 12/05/23 09:29) upset stomach Medication List - Last Reconciled 03/24/24 by Janell Willis MD amlodipine 5 mg PO DAILY ascorbate calcium (vitamin C) 500 mg PO DAILY azelastine-fluticasone 137-50 mcg/spray (Dymista) 1 spray intranasal BID blood-glucose meter As directed cholecalciferol (vitamin D3) 25 mcg PO DAILY COVID-19 antigen test As directed COVID-19 antigen test ([employer] COVID-19 Ag Card Home Test kit) As directed ferrous sulfate (Feosol) 325 mg PO DAILY FreeStyle Lite Meter (blood-glucose meter) 1 ea miscellaneous DAILY NS FreeStyle Lite Strips (blood sugar diagnostic) test blood sugar twice daily NS glipizide 5 mg PO BID lancets (FreeStyle Lancets) test blood sugar daily metformin 1,000 mg PO BID omeprazole 20 mg PO DAILY oseltamivir (Tamiflu) 75 mg PO BID 5 days polyethylene glycol 3350 17 grams PO Q10M 8 doses pravastatin 20 mg PO DAILY sertraline 25 mg PO DAILY Tobacco use date assessed: 03/24/24 Dental Screening Dental Screen Date: 09/11/23 HPI LT eye infection HPI Details Patient complains of left eye upper lid swelling erythema and itching for 3 days. He denies change in vision or discharge PFSH Medical History (Updated 03/24/24 @ 15:09 by Janell Willis MD) Enlarged thyroid JIMENEZ (dyspnea on exertion) Lower back pain HTN (hypertension) GERD (gastroesophageal reflux disease) Hyperlipidemia Diabetes Surgical History (Updated 12/05/23 @ 10:18 by Janell Willis MD) Hx of endoscopy H/O colonoscopy Social History Household Members: Spouse Household Members Other:: Housing: House Alcohol intake: current Alcohol intake frequency: holidays/special occasions only Alcohol type: beer and wine Patient Tobacco Use Status: Former Tobacco user e-Cigarette/Vaping Use: Never Used service: No Current occupational status: employed Current occupational exposures/hazards: No Cognitive needs: No Hearing needs: No Vision needs: No Questionnaire PHQ-9 Over the last 2 weeks, how often have you been bothered by any of the following problems? 1. Little interest or pleasure in doing things: not at all 2. Feeling down, depressed, or hopeless: not at all 3. Trouble falling or staying asleep, or sleeping too much: not at all 4. Feeling tired or having little energy: not at all 5. Poor appetite or overeating: not at all 6. Feeling bad about yourself - or that you are a failure or have let yourself or your family down: not at all 7. Trouble concentrating on things, such as reading the newspaper or watching television: not at all 8. Moving or speaking so slowly that other people could have noticed. Or the opposite - being so fidgety or restless that you have been moving around a lot more than usual: not at all 9. Thoughts that you would be better off or of hurting yourself in some way: not at all Total score: 0 Source: Developed by Drs. Kennedy Bradley, Melissa Farris, Shayan Ashton and colleagues, with an educational trisha from [employer]. Thrive Questionnaire Date Thrive assessed: 09/11/23 I am a: Patient What is your living situation today?: I have a steady place to live Within the past 12 months, did the food you bought not last and you didn't have the money to get more?: Often true Within the past 12 months, did you worry whether your food would run out before you got money to buy more?: Often true Do you have trouble paying for medicines?: No Do you have trouble getting transportation to medical appointments?: No Do you have trouble paying your heating and electricity bill?: I choose not to answer this question Do you have trouble taking care of your child, family member or friend?: No Do you have trouble with day-to-day activities such as bathing, preparing meals, shopping, managing finances, etc.?: No Are you currently unemployed and looking for a job?: No Are you interested in more education?: No Please select the resources that you would like help with: Utilities Currently or been in a relationship where the following occur: I choose not to answer THRIVE Score: 2 AUDIT C Alcohol Use Questionnaire (AUDIT-C) 1. How often do you have a drink containing alcohol?: Monthly or less 2. How many drinks containing alcohol do you have on a typical day when you are drinking?: 1 or 2 3. How often do you have six or more drinks on one occasion?: Less than monthly Total Score: 2 ROCKY-7 AMB Questionnaire ROCKY-7 Date ROCKY - 7 assessed: 09/11/23 Feeling nervous, anxious, or on edge: 0 = Not at all Not being able to stop or control worryin = Not at all Worrying too much about different things: 0 = Not at all Trouble relaxin = Not at all Being so restless that it is hard to sit still: 0 = Not at all Becoming easily annoyed or irritable: 0 = Not at all Feeling afraid as if something awful might happen: 0 = Not at all Total ROCKY-7 score (0-4 normal; 5-9 mild; 10-14 moderate; 15-21 severe): 0 Source: Developed by Drs. Kennedy Bradley, Melissa Farris, Shayan Ashton and colleagues, with an educational trisha from [employer]. Review of Systems Const All systems reviewed & are unremarkable except as noted in HPI and below Eyes Reports no additional complaints ENT Reports no additional complaints Card Reports no additional complaints Resp Reports no additional complaints GI Reports no additional complaints Physical exam (Primary Care) Vital Signs: Last Vital Signs Pulse 74 03/24/24 14:09 BP 136/80 03/24/24 14:09 Pulse Ox 98 03/24/24 14:09 Oxygen Delivery Method Room Air 03/24/24 14:09 BMI result Body Mass Index 31.8 Tobacco/Smoking Status: Tobacco use Status Tobacco use date assessed 03/24/24 03/24/24 14:16 Patient Tobacco Use Status Former Tobacco user 03/24/24 14:07 e-Cigarette/Vaping Use Never Used 03/24/24 14:07 PHQ-9: PHQ-9 Score PHQ-9: Total score 0 03/24/24 14:07 Thrive Assessment: Date of Thrive Assessment Date Thrive assessed 09/11/23 03/24/24 14:07 Currently or been in a relationship where the following occur: I choose not to answer Const General: no acute distress HENMT Other: Left eye upper lid erythema swelling conjunctiva intact Neck Neck: Yes supple Resp Effort & Inspection: normal respiratory effort Auscultation: clear to auscultation bilaterally Cardio Rhythm: regular rhythm Heart sounds: S1 normal heart sound present and S2 normal heart sound present Assessment and Plan Assessment & Plan (1) Blepharitis: Code(s): H01.009 - Unspecified blepharitis unspecified eye, unspecified eyelid Plan: Erythromycin ophthalmic ointment is prescribed and supportive care discussed Medications: New erythromycin 0.5 inches ophthalmic (eye) TID 3.5 grams 0RF Coding Level of Care Code Est Pt Level 3 (70445) Diagnoses Blepharitis H01.009
[2024-03-24 14:09] VITALS: BP 136/80; PULSE 74; O2SAT 98; BMI 31.8
== END 2024-03-24 14:37 | disposition home or self-care (01) ==
PROVIDERS: PCP Internal Medicine; Visit Provider Internal Medicine
DX: H01.009 Unspecified blepharitis unspecified eye, unspecified eyelid (principal)
CPT/HCPCS: 99213

== ENCOUNTER 2024-04-07 12:05 | Outpatient (AMB) | payer BC, MEDICARE, SELFPAY ==
[2024-04-07 12:29] VITALS: BP 136/88; PULSE 90; TEMP 36.8; O2SAT 95; BMI 31.2
--- NOTE | 2024-04-07 12:29 | A.OFFPC_ITS ---
Vital Signs 04/07/24 12:29 Height 5 ft 11 in Weight 223 lb 8 oz BMI 31.2 BP 136/88 Blood Pressure Location Lt brachial Position Sitting Pulse 90 Pulse Source Pulse Oximeter Temp 98.3 F Temp Source Oral Pulse Oximetry (%) 95 Oxygen Delivery Method Room Air Intake Visit Reasons: Regular visit Intake Note: Pt is here today for a sick visit, pt states he just came back from a cruise with fevers, cough and also runny nose. Allergies lisinopril Allergy (Uncoded 12/05/23 09:29) upset stomach Tobacco use date assessed: 04/07/24 Fall risk assessment: No Falls in past year Last assessed Fall Risk: 04/07/24 Dental Screening Dental Screen Date: 04/07/24 Did you have a dental visit in the last 12 months?: Yes Did you have a dental problem in the last 6 months where you did not have access to dental care?: No Was dental information given to patient?: Patient has dentist HPI Regular visit HPI Details Pt c/o sore throat, chest congestion, cough, low-grade fever for 2 days. Patient denies shortness of breath pleurisy chest pain type 2 diabetes and hypertension controlled current medications. PFSH Medical History Enlarged thyroid JIMENEZ (dyspnea on exertion) Lower back pain HTN (hypertension) GERD (gastroesophageal reflux disease) Hyperlipidemia Diabetes Surgical History Hx of endoscopy H/O colonoscopy Social History Household Members: Spouse Household Members Other:: Housing: House Alcohol intake: current Alcohol intake frequency: holidays/special occasions only Alcohol type: beer and wine Patient Tobacco Use Status: Former Tobacco user e-Cigarette/Vaping Use: Never Used service: No Current occupational status: employed Current occupational exposures/hazards: No Cognitive needs: No Hearing needs: No Vision needs: No Questionnaire PHQ-9 Over the last 2 weeks, how often have you been bothered by any of the following problems? 1. Little interest or pleasure in doing things: not at all 2. Feeling down, depressed, or hopeless: not at all 3. Trouble falling or staying asleep, or sleeping too much: not at all 4. Feeling tired or having little energy: not at all 5. Poor appetite or overeating: not at all 6. Feeling bad about yourself - or that you are a failure or have let yourself or your family down: not at all 7. Trouble concentrating on things, such as reading the newspaper or watching television: not at all 8. Moving or speaking so slowly that other people could have noticed. Or the opposite - being so fidgety or restless that you have been moving around a lot more than usual: not at all 9. Thoughts that you would be better off or of hurting yourself in some way: not at all Total score: 0 Depression Screening Interpretation: Negative Depression Screening Done: Yes 90987 - PHQ-9 Billing: Yes Source: Developed by Drs. Kennedy Bradley, Melissa Farris, Shayan Ashton and colleagues, with an educational trisha from [employer] Thrive Questionnaire Date Thrive assessed: 04/07/24 I am a: Patient What is your living situation today?: I have a steady place to live Within the past 12 months, did the food you bought not last and you didn't have the money to get more?: Often true Within the past 12 months, did you worry whether your food would run out before you got money to buy more?: Often true Do you have trouble paying for medicines?: No Do you have trouble getting transportation to medical appointments?: No Do you have trouble paying your heating and electricity bill?: I choose not to answer this question Do you have trouble taking care of your child, family member or friend?: No Do you have trouble with day-to-day activities such as bathing, preparing meals, shopping, managing finances, etc.?: No Are you currently unemployed and looking for a job?: No Are you interested in more education?: No Please select the resources that you would like help with: Utilities Currently or been in a relationship where the following occur: I choose not to answer THRIVE Score: 2 AUDIT C Alcohol Use Questionnaire (AUDIT-C) 1. How often do you have a drink containing alcohol?: Monthly or less 2. How many drinks containing alcohol do you have on a typical day when you are drinking?: 1 or 2 3. How often do you have six or more drinks on one occasion?: Less than monthly Total Score: 2 Score Reviewed/Action Taken: Yes ROCKY-7 AMB Questionnaire ROCKY-7 Date ROCKY - 7 assessed: 04/07/24 Feeling nervous, anxious, or on edge: 0 = Not at all Not being able to stop or control worryin = Not at all Worrying too much about different things: 0 = Not at all Trouble relaxin = Not at all Being so restless that it is hard to sit still: 0 = Not at all Becoming easily annoyed or irritable: 0 = Not at all Feeling afraid as if something awful might happen: 0 = Not at all Total ROCKY-7 score (0-4 normal; 5-9 mild; 10-14 moderate; 15-21 severe): 0 Source: Developed by Drs. Kennedy Bradley, Melissa Farris, Shayan Ashton and colleagues, with an educational trisha from [employer] ROCKY-7 Assessment Billing ROCKY-7 Assessment Tool: ROCKY-7 Assessment 91147 Review of Systems Const All systems reviewed & are unremarkable except as noted in HPI and below Card Reports no additional complaints Resp Reports no additional complaints GI Reports no additional complaints Physical exam (Primary Care) Vital Signs: Last Vital Signs Temp 98.3 F 04/07/24 12:29 Pulse 90 04/07/24 12:29 BP 136/88 04/07/24 12:29 Pulse Ox 95 04/07/24 12:29 Oxygen Delivery Method Room Air 04/07/24 12:29 BMI result Body Mass Index 31.2 Tobacco/Smoking Status: Tobacco use Status Tobacco use date assessed 04/07/24 04/07/24 12:39 Patient Tobacco Use Status Former Tobacco user 04/07/24 12:39 e-Cigarette/Vaping Use Never Used 04/07/24 12:39 PHQ-9: PHQ-9 Score PHQ-9: Total score 0 04/07/24 12:39 Depression Screening Interpretation: Negative Thrive Assessment: Date of Thrive Assessment Date Thrive assessed 04/07/24 04/07/24 12:39 Currently or been in a relationship where the following occur: I choose not to answer Const General: no acute distress HENMT Head: Yes normal to inspection Ears: TM's normal bilaterally Face and sinus: Yes normal facial exam and No sinus tenderness Throat: Yes posterior oropharynx abnormal (erythema,) and Yes postnasal drainage Neck Neck: Yes supple Resp Effort & Inspection: normal respiratory effort Auscultation: clear to auscultation bilaterally Cardio Rhythm: regular rhythm Heart sounds: S1 normal heart sound present and S2 normal heart sound present Assessment and Plan Assessment & Plan (1) URI (upper respiratory infection): Code(s): J06.9 - Acute upper respiratory infection, unspecified Plan: Check respiratory panel , supportive care discussed with the patient (2) HTN (hypertension): Comment: Intolerant to lisinopril, upset stomach Code(s): I10 - Essential (primary) hypertension Plan: Continue current medications (3) Diabetes: Comment: pt refused to add GLP1 receptor agonist 09/22 Code(s): E11.9 - Type 2 diabetes mellitus without complications Plan: Continue current medications Orders: Orders SARS-CoV2/FLU/RSV Today J06.9 - Acute upper respiratory infection, unspecified Coding Level of Care Code Est Pt Level 3 (26041) Diagnoses URI (upper respiratory infection) J06.9 HTN (hypertension) I10 Diabetes E11.9 Additional Codes ROCKY-7 Assessment Billing - ROCKY-7 Assessment Tool: ROCKY-7 Assessment [id number] ([id number])
== END 2024-04-07 13:32 | disposition home or self-care (01) ==
PROVIDERS: PCP Internal Medicine; Visit Provider Internal Medicine
DX: J06.9 Acute upper respiratory infection, unspecified (principal); I10 Essential (primary) hypertension; E11.9 Type 2 diabetes mellitus without complications
CPT/HCPCS: 99213

== ENCOUNTER 2024-04-07 13:04 | Outpatient (REF) | payer BC, MEDICARE, SELFPAY ==
[2024-04-07 17:39] LABS: Influenza A PCR NEGATIVE (Negative); Influenza B PCR NEGATIVE (Negative); Resp Syncy Virus RNA Qual PCR NEGATIVE (Negative); SARS COV2 PCR INHOUSE POSITIVE (Negative)
== END 2024-04-07 13:05 | disposition home or self-care (01) ==
LOC: HO.LAB 13:04
PROVIDERS: Visit Provider Internal Medicine
DX: J06.9 Acute upper respiratory infection, unspecified (principal)
CPT/HCPCS: 0241U

== ENCOUNTER 2024-05-13 08:48 | Outpatient (REF) | payer MEDICARE, SELFPAY ==
[2024-05-13 10:40] LABS: Influenza A PCR NEGATIVE (Negative); Influenza B PCR NEGATIVE (Negative); Resp Syncy Virus RNA Qual PCR NEGATIVE (Negative); SARS COV2 PCR INHOUSE NEGATIVE (Negative)
== END 2024-05-13 08:49 | disposition home or self-care (01) ==
LOC: HO.LAB 08:48
PROVIDERS: Nurse Practitioner Family; PCP Internal Medicine
DX: J06.9 Acute upper respiratory infection, unspecified (principal); R09.89 Other specified symptoms and signs involving the circulatory and respiratory systems
CPT/HCPCS: 0241U; 87880

== ENCOUNTER 2024-05-13 08:48 | Outpatient (AMB) | payer BC, MEDICARE, SELFPAY ==
--- NOTE | 2024-05-13 08:50 | MHC.OFFWIV ---
Intake Vital Signs 05/13/24 08:53 Height 5 ft 11 in Weight 228 lb BMI 31.8 BP 130/76 Blood Pressure Location Rt brachial Position Sitting Pulse 84 Pulse Source Pulse Oximeter Temp 98.1 F Temp Source Oral Pulse Oximetry (%) 95 Oxygen Delivery Method Room Air Intake Visit Reasons: EP Productive cough, sore throat, aches Intake Note: Patient here for cough, yellow/green mucus and sore throat that has been present for about 4-5 days. Patient Tobacco Use Status: Former Tobacco user Allergies lisinopril Allergy (Uncoded 05/13/24 08:54) upset stomach Do you need a note to return to daycare/school/sports/work: No HPI HPI Comments History of Present Illness Details 68 y/o male patient who presents to the walk in clinic with c/o URI symptoms x 5 days. Reports productive cough, and body aches. She does live in house with large number of family members. He has been seen here at [facility] few times for COVID infection. Will sent another swab for SARs today. [facility] Medical History Enlarged thyroid JIMENEZ (dyspnea on exertion) Lower back pain HTN (hypertension) GERD (gastroesophageal reflux disease) Hyperlipidemia Diabetes Surgical History Hx of endoscopy H/O colonoscopy Social History Household Members: Spouse Household Members Other:: Housing: House Alcohol intake: current Alcohol intake frequency: holidays/special occasions only Alcohol type: beer and wine Patient Tobacco Use Status: Former Tobacco user e-Cigarette/Vaping Use: Never Used service: No Current occupational status: employed Current occupational exposures/hazards: No Cognitive needs: No Hearing needs: No Vision needs: No Review of Systems Const All systems reviewed & are unremarkable except as noted in HPI and below Physical Exam Vital Signs: Last Vital Signs Temp 98.1 F 05/13/24 08:53 Pulse 84 05/13/24 08:53 BP 130/76 05/13/24 08:53 Pulse Ox 95 05/13/24 08:53 Oxygen Delivery Method Room Air 05/13/24 08:53 BMI result Body Mass Index 31.8 Const General: cooperative and no acute distress Nutritional Appearance: overweight Orientation/consciousness: patient oriented x3 HEENT Head: Yes normocephalic Ears: external ears normal and TM abnormal bulging and with fluid behind the TM General nose exam: Normal nasal mucous membranes and turbinates present Face and sinus: Yes sinuses nontender Mouth: moist mucous membranes Resp Effort & Inspection: normal respiratory effort, able to speak in complete sentences and Actively coughing Auscultation: clear to auscultation bilaterally Cardio Heart sounds: S1 normal heart sound present and S2 normal heart sound present Neuro General: patient oriented x3 Results AMB Rapid Strep AMB Rapid Strep Negative Last Edit by MAGALY Saldaña on 05/13/24 09:04 Assessment & Plan Assessment & Plan (1) URI (upper respiratory infection): Code(s): J06.9 - Acute upper respiratory infection, unspecified Qualifiers: URI type: unspecified URI Qualified Code(s): J06.9 - Acute upper respiratory infection, unspecified Plan: Ordered SARs today. OTC cough remedies Acetaminophen for pain relief. Orders: Orders AMB Rapid Strep Screen Today Z13.9 - Encounter for screening, unspecified SARS-CoV2/FLU/RSV Today R09.89 - Other specified symptoms and signs involving the circulatory and respiratory systems Medications: New benzonatate 100 mg PO TID 90 caps 0RF J06.9 - Acute upper respiratory infection, unspecified [id number] [id number] mg/20 mL (Mucinex Fast-Max Romulo-Head (GG)) 20 mL PO Q6H 180 mL 0RF J06.9 - Acute upper respiratory infection, unspecified, R05.9 - Cough, unspecified Coding Level of Care Code Est Pt Level 3 (61880) Diagnoses Upper respiratory tract infection, unspecified type J06.9 URI type: unspecified URI Time Spent (min) 15
[2024-05-13 08:53] VITALS: BP 130/76; PULSE 84; TEMP 36.7; O2SAT 95; BMI 31.8
== END 2024-05-13 09:30 | disposition home or self-care (01) ==
PROVIDERS: PCP Internal Medicine; Visit Provider Nurse Practitioner Family
DX: J06.9 Acute upper respiratory infection, unspecified (principal); Z13.9 Encounter for screening, unspecified

== ENCOUNTER 2024-06-07 07:24 | Outpatient (REF) | payer MEDICARE, SELFPAY ==
[2024-06-07 11:15] LABS: MANUAL DIFF FLAG NO
[2024-06-07 11:28] LABS: Basophils Absolute Auto 0.1 X10*3/uL (0.0-0.2); Basophils Percent Auto 0.8 % (0-2); Eosinophils Absolute Auto 0.6 X10*3/uL (0.0-0.4); Hematocrit 46.9 % (42.0-52.0); Imm Gran Abs Auto 0.02 X10*3/uL (0.00-0.03); Imm Gran Pct Auto 0.3 % (0.0-0.4); Lymphocytes Absolute Auto 2.6 X10*3/uL (1.2-4.9); Mean Corpuscular HGB Conc 34.1 g/dl (31.0-36.0); Mean Corpuscular Hemoglobin 29.4 pg (27.0-33.0); Mean Corpuscular Volume 86.2 fL (80.0-98.0); Mean Platelet Volume 10.8 fL (9.4-12.4); Monocytes Absolute Auto 0.6 X10*3/uL (0.1-1.2); Monocytes Percent Auto 8.2 % (2-11); Neutrophils Percent Auto 50.7 % (45-73); Platelet Count 183 X10*3/uL (160-400); Red Blood Count 5.44 X10*6/uL (4.60-5.80); Red Cell Distribution Width 12.6 % (11.0-16.0); White Blood Count 7.8 X10*3/uL (4.8-10.8)
[2024-06-07 11:33] LABS: Alanine Aminotransferase 57 U/L (0-40); Albumin Level 4.5 g/dL (3.5-5.0); Alkaline Phosphatase 37 U/L (39-117); Anion Gap 17 (12-20); Aspartate Amino Transferase 58 U/L (5-37); Blood Urea Nitrogen 18 mg/dL (9-16); Calcium 9.8 mg/dL (8.4-10.2); Carbon Dioxide 28 mmol/L (22-29); Chloride 101 mmol/L (96-108); Cholesterol 174 mg/dL (<200); Estimated Glomerular Filt Rate > 60; Glucose Fasting 153 mg/dL (60-99); HDL Cholesterol 39 mg/dL (>40); LDL Cholesterol Calculated 97 mg/dL (<100); Potassium 4.4 mmol/L (3.3-5.1); Sodium 142 mmol/L (135-145); Total Protein 8.1 g/dL (6.5-8.0); Triglycerides 190 mg/dL (<150)
[2024-06-07 11:34] LABS: Estimated Average Glucose 169 mg/dL; Hemoglobin A1C 243.8382 umol/L; Hemoglobin A1c % 7.5 % (<6.0); Total Hemoglobin (HGBA1C) 4171.9974 umol/L
[2024-06-07 11:51] LABS: Creatinine Urine 120.49 mg/dL; Microalbumin Urine < 5.0 mg/L
== END 2024-06-07 07:25 | disposition home or self-care (01) ==
LOC: HO.HMGCLDS 07:24
PROVIDERS: PCP Internal Medicine; Visit Provider Internal Medicine
DX: E78.5 Hyperlipidemia, unspecified (principal); I10 Essential (primary) hypertension; E11.9 Type 2 diabetes mellitus without complications
CPT/HCPCS: 36415; 80053; 80061; 82570; 83036; 85025

== ENCOUNTER 2024-06-09 12:41 | Outpatient (AMB) | payer MEDICARE, SELFPAY ==
[2024-06-09 13:03] VITALS: BP 118/80; PULSE 74; O2SAT 96; BMI 31.2
--- NOTE | 2024-06-09 13:03 | MHC.PC.OV ---
Vital Signs 06/09/24 13:03 Height 5 ft 11 in Weight 224 lb BMI 31.2 BP 118/80 Blood Pressure Location Lt brachial Position Sitting Pulse 74 Pulse Source Pulse Oximeter Pulse Oximetry (%) 96 Oxygen Delivery Method Room Air Intake Visit Reasons: 4M F/U Intake Note: Pt is here today for 4 months follow up visit. Allergies lisinopril Allergy (Uncoded 06/09/24 13:05) upset stomach Medication List - Last Reconciled 06/09/24 by Janell Willis MD amlodipine 5 mg PO DAILY ascorbate calcium (vitamin C) 500 mg PO DAILY blood-glucose meter As directed cholecalciferol (vitamin D3) 25 mcg PO DAILY ferrous sulfate (Feosol) 325 mg PO DAILY FreeStyle Lite Meter (blood-glucose meter) 1 ea miscellaneous DAILY NS FreeStyle Lite Strips (blood sugar diagnostic) test blood sugar twice daily NS glipizide 5 mg PO BID lancets (FreeStyle Lancets) test blood sugar daily metformin 1,000 mg PO BID omeprazole 20 mg PO DAILY huenfmvnuuwvo-htpjojakxcxja-XM 10-650-400 mg/20 mL (Mucinex Fast-Max Romulo-Head (GG)) 20 mL PO Q6H polyethylene glycol 3350 17 grams PO Q10M 8 doses pravastatin 20 mg PO DAILY sertraline 25 mg PO DAILY Tobacco use date assessed: 06/09/24 Dental Screening Dental Screen Date: 04/07/24 HPI 4M F/U HPI Details Pt presents for f/u HTN, DM 2, hyperlipid, stable on meds. PFSH Medical History Enlarged thyroid JIMENEZ (dyspnea on exertion) Lower back pain HTN (hypertension) GERD (gastroesophageal reflux disease) Hyperlipidemia Diabetes Surgical History Hx of endoscopy H/O colonoscopy Social History Household Members: Spouse Household Members Other:: Housing: House Alcohol intake: current Alcohol intake frequency: holidays/special occasions only Alcohol type: beer and wine Patient Tobacco Use Status: Former Tobacco user e-Cigarette/Vaping Use: Never Used service: No Current occupational status: employed Current occupational exposures/hazards: No Cognitive needs: No Hearing needs: No Vision needs: No Questionnaire Thrive Questionnaire Date Thrive assessed: 03/24/24 I am a: Patient What is your living situation today?: I have a steady place to live Within the past 12 months, did the food you bought not last and you didn't have the money to get more?: Often true Within the past 12 months, did you worry whether your food would run out before you got money to buy more?: Often true Do you have trouble paying for medicines?: No Do you have trouble getting transportation to medical appointments?: No Do you have trouble paying your heating and electricity bill?: I choose not to answer this question Do you have trouble taking care of your child, family member or friend?: No Do you have trouble with day-to-day activities such as bathing, preparing meals, shopping, managing finances, etc.?: No Are you currently unemployed and looking for a job?: No Are you interested in more education?: No Please select the resources that you would like help with: Utilities Currently or been in a relationship where the following occur: I choose not to answer THRIVE Score: 2 ROCKY-7 AMB Questionnaire ROCKY-7 Date ROCKY - 7 assessed: 04/07/24 Source: Developed by Drs. Kennedy Bradley, Melissa Farris, Shayan Ashton and colleagues, with an educational trisha from [employer]. Review of Systems Const All systems reviewed & are unremarkable except as noted in HPI and below Reports no additional complaints Eyes Reports no additional complaints ENT Reports no additional complaints Card Reports no additional complaints Resp Reports no additional complaints GI Reports no additional complaints Reports no additional complaints Physical exam (Primary Care) Vital Signs: Last Vital Signs Pulse 74 06/09/24 13:03 BP 118/80 06/09/24 13:03 Pulse Ox 96 06/09/24 13:03 Oxygen Delivery Method Room Air 06/09/24 13:03 BMI result Body Mass Index 31.2 Tobacco/Smoking Status: Tobacco use Status Tobacco use date assessed 06/09/24 06/09/24 13:05 Patient Tobacco Use Status Former Tobacco user 06/09/24 13:04 e-Cigarette/Vaping Use Never Used 06/09/24 13:04 Thrive Assessment: Date of Thrive Assessment Date Thrive assessed 03/24/24 06/09/24 13:04 Currently or been in a relationship where the following occur: I choose not to answer Const General: no acute distress HENMT Head: Yes normal to inspection Ears: hearing grossly normal bilaterally Mouth: Normal oral and palatal mucosa present Eyes General: appearance normal, both eyes and all related structures Neck Neck: Yes no lymphadenopathy and Yes supple Resp Effort & Inspection: normal respiratory effort Auscultation: clear to auscultation bilaterally Cardio Rhythm: regular rhythm Heart sounds: S1 normal heart sound present and S2 normal heart sound present GI Inspection: Yes normal to inspection Palpation (GI): Soft to palpation Percussion: Yes normal to percussion Auscultation: normal bowel sounds Coding Level of Care Code Est Pt Level 4 (65202) Diagnoses Diabetes E11.9 Hyperlipidemia E78.5 HTN (hypertension) I10 Anemia D64. Assessment & Plan Assessment & Plan (1) Diabetes: Comment: pt refused to add GLP1 receptor agonist 09/22 Code(s): E11.9 - Type 2 diabetes mellitus without complications Category: Medical Plan: A1c is 7.5, ADA diet, increase exercise weight loss discussed with the patient patient refused to add more medications he will continue metformin glipizide follow-up in 4 months with a fasting labs before (2) Hyperlipidemia: Code(s): E78.5 - Hyperlipidemia, unspecified Category: Medical Plan: Continue statin (3) HTN (hypertension): Comment: Intolerant to lisinopril, upset stomach Code(s): I10 - Essential (primary) hypertension Category: Medical Plan: Continue amlodipine (4) Anemia: Comment: History of peptic ulcer disease and GI bleed on long time iron supplement, negative endoscopy and colonoscopy 2023 Code(s): D64.9 - Anemia, unspecified Category: Medical Plan: Monitor CBC and iron count Orders: Orders Comprehensive [place]. Panel Fast 4 Months D64.9 - Anemia, unspecified, E11.9 - Type 2 diabetes mellitus without complications, E78.5 - Hyperlipidemia, unspecified, I10 - Essential (primary) hypertension Lipid Panel 4 Months D64.9 - Anemia, unspecified, E11.9 - Type 2 diabetes mellitus without complications, E78.5 - Hyperlipidemia, unspecified, I10 - Essential (primary) hypertension Hemoglobin A1c 4 Months D64.9 - Anemia, unspecified, E11.9 - Type 2 diabetes mellitus without complications, E78.5 - Hyperlipidemia, unspecified, I10 - Essential (primary) hypertension IRON PROFILE 4 Months D64.9 - Anemia, unspecified, E11.9 - Type 2 diabetes mellitus without complications, E78.5 - Hyperlipidemia, unspecified, I10 - Essential (primary) hypertension Microalbumin, Random (w Creat) 4 Months D64.9 - Anemia, unspecified, E11.9 - Type 2 diabetes mellitus without complications, E78.5 - Hyperlipidemia, unspecified, I10 - Essential (primary) hypertension Complete Blood Count Auto Diff 4 Months D64.9 - Anemia, unspecified
== END 2024-06-09 14:04 | disposition home or self-care (01) ==
PROVIDERS: PCP Internal Medicine; Visit Provider Internal Medicine
DX: E11.9 Type 2 diabetes mellitus without complications (principal); E78.5 Hyperlipidemia, unspecified; I10 Essential (primary) hypertension; D64.9 Anemia, unspecified

== ENCOUNTER → 2024-06-09 12:41 | Outpatient (BNVA) | payer MEDICARE, SELFPAY | PROVIDERS: PCP Internal Medicine; Visit Provider Internal Medicine | DX: E11.9 Type 2 diabetes mellitus without complications (principal); E78.5 Hyperlipidemia, unspecified; D64.9 Anemia, unspecified; I10 Essential (primary) hypertension | CPT/HCPCS: 99212 ==

== ENCOUNTER 2024-09-24 09:36 | Outpatient (REF) | payer MEDICARE, SELFPAY ==
[2024-09-24 15:15] LABS: Influenza A PCR POSITIVE (Negative); Influenza B PCR NEGATIVE (Negative); Resp Syncy Virus RNA Qual PCR NEGATIVE (Negative); SARS COV2 PCR INHOUSE NEGATIVE (Negative)
--- OUTSIDE RECORDS SUMMARY | 2024-09-24 16:28 | XMS_ITS | Encounter Summary ---
Author Organization [facility] Address [address] [place] [address] Care Team Providers Care Lumber Tallier Name Role Phone Janell Willis MD Primary Care Provider [phone] Encounter Details Date Type Department Care Team (Late st Contact Info) Description 09/10/2024 9:36 AM EST Anesthesia Event [facility] Endoscopy [address] [place] [address] Jones Begum MD [address] [place] [address] Anesthesia Record Procedure Summary Procedure Name Responsible [...] Procedure Summary Date: 09/10/24 Room / Location: [facility] Endoscopy Anesthesia Start: 935 Anesthesia Stop: 1002 [...] with patient who. Anesthesia Plan discussed with CLASSIFIER OPERATOR. Anesthesia Evaluation Patient summary reviewed and Nursing [...] mg documented in this encounter Care Teams Lumber Tallier Relationship Specialty Start Date End Date Janell Willis MD [address] [place] [address] PCP - General Internal Medicine 06/20/19 documented as of this encounter
--- OUTSIDE RECORDS SUMMARY | 2024-09-24 16:28 | XMS_ITS | Clinical Summary ---
Author Organization 175 [facility] Address [address] [place] [address] Phone Care Team Providers Care Footwear Sales Leader Name Role Phone Janell Willis MD Primary Care Provider [phone] Allergies No known active allergies Medications bisacodyL [...] Description 09/10/2024 9:36 AM EST Anesthesia Event [facility] Endoscopy [address] [place] [phone] Jones Begum MD 09/10/2024 8:54 AM EST - 09/10/2024 11:59 PM EST Hospital Encounter [facility] Endoscopy [address] [place] [phone] Godfrey Hernandez DO McAdams, Megan, CRNA Spencer, Mark A, MD Hyperplastic polyps of stomach Discharge Disposition: Home or Self Care 06/24/2024 10:45 AM EST Office Visit Gastroenterology - [place] [address] [facility] [address] [place] [phone] Qamar Deal MD Hyperplastic polyps of stomach (Primary Dx) 06/24/2024 Telephone Gastroenterology [facility] [address] [facility] [address] [place] [phone] Qamar Deal MD Appointment from Last [...] Maintenance Results * EGD Anesthesia - MAC; [facility] ENDOSCOPY (09/10/2024 9:57 AM EST) Anatomical [...] pathology results. Narrative 09/10/2024 9:55 AM EST [facility] GI Patient Name: Jose A Cook Procedure Date: 09/10/2024 9:41 AM Date of : 1955 Age: 69 Gender: Male Note Status: Finalized Attending MD: Godfrey Hernandez DO, [id number] Procedure Date No Time: 09/10/2024 Procedure: ? [...] physician, the nurse, the ? anesthesiologist, the small stock facer and the criminal records technician ? in the pre-procedure area in [...] Procedure Code(s): ? --- Professional --- ? 54642, Esophagogastroduodenoscopy, flexible, ? transoral; with removal of tumor(s), polyp(s), or ? other lesion(s) by snare technique ? 70257, 59, Esophagogastroduodenoscopy, flexible, ? transoral; with biopsy, single or multiple ? 16218, 59, Esophagogastroduodenoscopy, flexible, ? transoral; with directed submucosal injection(s), any ? substance Diagnosis Code(s): ? --- Professional --- ? K31.7, Polyp of stomach and duodenum ? K31.89, Other diseases of stomach and duodenum CPT copyright 2020 [employer]. All rights reserved. The codes documented in this report are preliminary and upon surgical instruments inspector review may be revised to meet current compliance requirements. GODFREY Hernandez DO 09/10/2024 9:55:13 AM This report has been signed electronically.Godfrey Hernandez DO Number of Addenda: 0 Note Initiated On: 09/10/2024 9:41 AM Scope In: Scope Out: ? Endoscopy Department at [facility] - [address] [place] [address], ? [place] [address] Procedure Note Godfrey Hernandez DO - 09/10/2024 [facility] GI Patient Name: Jose A Cook Procedure Date: 09/10/2024 9:41 AM Date of : 1955 Age: 69 Gender: Male Note Status: Finalized Attending MD: Godfrey Hernandez DO, [id number] Procedure Date No Time: 09/10/2024 Procedure: Upper [...] the physician, the nurse, the anesthesiologist, the small stock facer and thetechnician in the pre-procedure area in [...] was minimal. Procedure Code(s): --- Professional --- 74214, Esophagogastroduodenoscopy, flexible, transoral; with removal of tumor(s), polyp(s), or other lesion(s) by snare technique 55279, 59, Esophagogastroduodenoscopy, flexible, transoral; with biopsy, single or multiple 86658, 59, Esophagogastroduodenoscopy, flexible, transoral; with directed submucosal injection(s),any substance Diagnosis Code(s): --- Professional --- K31.7, Polyp of stomach and duodenum K31.89, Other diseases of stomach and duodenum CPT copyright 2020 [employer]. All rights reserved. The codes documented in this report are preliminary and upon surgical instruments inspector reviewmay be revised to meet current compliance requirements. GODFREY Hernandez DO 09/10/2024 9:55:13 AM This report has been signed electronically.Godfrey Hernandez DO Number of Addenda: 0 Note Initiated On: 09/10/2024 9:41 AM Scope In: Scope Out: Endoscopy Department at [facility] - [address] [place] [phone] IMPRESSION: - Normal esophagus. - Normal examined [...] neuroendocrine cell (ECL) hyperplasia. 9:[address] [facility] Gross Description A. Stomach, gastric polyps [...] pieces, multiple levels. dvb/SL 9:[address] [facility] Disclaimer NOTE: The immunohistochemical tests and in situ hybridization tests were developed and their performance characteristics were determined by [facility]. They have not been cleared [...] fixed and paraffin embedded. 9:[address] [facility] Tissue Stomach structure / Unknown 09/10/2024 9:53 AM EST 09/10/2024 10:40 AM EST Tissue specimen (specimen) Stomach structure / Unknown 09/10/2024 9:54 AM EST 09/10/2024 10:40 AM EST us Godfrey Hernandez DO LAB PATHOLOGY ORDERABLES Final R esult [facility] [address] [place] [address], * Colonoscopy (04/27/2022) Colonoscopy No Interpretation , Abstracted Anatomical Region Laterality Modality Other Historical Provider HEALTH MAINTENANCE Final Result from Last 3 Months or Most Recently Relevant to Health Maintenance Insurance BLUE [employer]OSS - [place] MEDICARE ADVANTAGE Care Teams Footwear Sales Leader Relationship Specialty Start Date End Date Janell Willis MD [address] [place] [address] PCP - General Internal Medicine 06/20/19
--- OUTSIDE RECORDS SUMMARY | 2024-09-24 16:28 | XMS_ITS | Encounter Summary ---
Author Organization [facility] Address [address] [place] [address] Care Team Providers Care Eclectic Doctor Name Role Phone Janell Willis MD Primary Care Provider [phone] Reason for Referral * Hospital - Outpatient (Routine) - Closed Specialty Diagnoses / Procedures Referred By Contac t Referred To Contact Gastroenterology Diagnoses Hyperplastic polyps of stomach Procedures EGD Anesthesia - MAC; [facility] ENDOSCOPY Qamar Deal MD [address] [address] Phone: tel: fax: [facility] Endoscopy [address] [place] [address] Phone: tel: Referral ID Status Reason Start Date Expiration Date Visits Re quested Visits Authorized [id number] Closed 08/13/2024 08/13/2025 1 1 Reason for Visit * Hospital - Outpatient (Routine) - Closed Specialty Diagnoses / Procedures Referred By Contac t Referred To Contact Gastroenterology Diagnoses Hyperplastic polyps of stomach Procedures EGD Anesthesia - MAC; [facility] ENDOSCOPY Qamar Deal MD [address] [address] Phone: tel: fax: [facility] Endoscopy [address] [place] [address] Phone: tel: Referral ID Status Reason Start Date Expiration Date Visits Re quested Visits Authorized [id number] Closed 08/13/2024 08/13/2025 1 1 Encounter Details Date Type Department Care Team (Late st Contact Info) Description 09/10/2024 8:54 AM EST - 09/10/2024 11:59 PM EST Hospital Encounter [facility] Endoscopy [address] [place] [phone] Godfrey Hernandez DO 175 [facility] [address] [place] [address] Beatrice Boyd CRNA [address] [facility] [place] [address] Jones Begum MD [address] [place] [phone] Hyperplastic polyps of stomach Discharge Disposition: Home [...] Care Everywhere. * Gastric Polyps: General Info (Iraqi) * EGD (Upper Endoscopy): Post-op (Iraqi) documented in this encounter Medications at Time [...] encounter Results * EGD Anesthesia - MAC; [facility] ENDOSCOPY (09/10/2024 9:57 AM EST) Anatomical Region [...] pathology results. Narrative 09/10/2024 9:55 AM EST [facility] GI Patient Name: Jose A Cook Procedure Date: 09/10/2024 9:41 AM Date of : 1955 Age: 69 Gender: Male Note Status: Finalized Attending MD: Godfrey Hernandez DO, [id number] Procedure Date No Time: 09/10/2024 Procedure: ? [...] physician, the nurse, the ? anesthesiologist, the mine promotor and the senior health physics technician ? in the pre-procedure area in [...] Procedure Code(s): ? --- Professional --- ? 02145, Esophagogastroduodenoscopy, flexible, ? transoral; with removal of tumor(s), polyp(s), or ? other lesion(s) by snare technique ? 35753, 59, Esophagogastroduodenoscopy, flexible, ? transoral; with biopsy, single or multiple ? 00663, 59, Esophagogastroduodenoscopy, flexible, ? transoral; with directed submucosal injection(s), any ? substance Diagnosis Code(s): ? --- Professional --- ? K31.7, Polyp of stomach and duodenum ? K31.89, Other diseases of stomach and duodenum CPT copyright 2020 [employer]. All rights reserved. The codes documented in this report are preliminary and upon architect manager review may be revised to meet current compliance requirements. GODFREY Hernandez DO 09/10/2024 9:55:13 AM This report has been signed electronically.Godfrey Hernandez DO Number of Addenda: 0 Note Initiated On: 09/10/2024 9:41 AM Scope In: Scope Out: ? Endoscopy Department at [facility] - [address] [place] [address], ? [place] [address] Procedure Note Godfrey Hernandez DO - 09/10/2024 [facility] GI Patient Name: Jose A Cook Procedure Date: 09/10/2024 9:41 AM Date of : 1955 Age: 69 Gender: Male Note Status: Finalized Attending MD: Godfrey Hernandez DO, [id number] Procedure Date No Time: 09/10/2024 Procedure: Upper [...] the physician, the nurse, the anesthesiologist, the mine promotor and thetechnician in the pre-procedure area in [...] was minimal. Procedure Code(s): --- Professional --- 05499, Esophagogastroduodenoscopy, flexible, transoral; with removal of tumor(s), polyp(s), or other lesion(s) by snare technique 69244, 59, Esophagogastroduodenoscopy, flexible, transoral; with biopsy, single or multiple 14502, 59, Esophagogastroduodenoscopy, flexible, transoral; with directed submucosal injection(s),any substance Diagnosis Code(s): --- Professional --- K31.7, Polyp of stomach and duodenum K31.89, Other diseases of stomach and duodenum CPT copyright 2020 [employer]. All rights reserved. The codes documented in this report are preliminary and upon architect manager reviewmay be revised to meet current compliance requirements. GODFREY Hernandez DO 09/10/2024 9:55:13 AM This report has been signed electronically.Godfrey Hernandez DO Number of Addenda: 0 Note Initiated On: 09/10/2024 9:41 AM Scope In: Scope Out: Endoscopy Department at [facility] - [address] [place] [phone] IMPRESSION: - Normal esophagus. - Normal examined [...] for neuroendocrine cell (ECL) hyperplasia. 9:26 AM [facility] Gross Description A. [...] four pieces, multiple levels. dvb/SL 9:26 AM [facility] Disclaimer NOTE: The immunohistochemical tests and in situ hybridization tests were developed and their performance characteristics were determined by [facility]. They have not been [...] fixed and paraffin embedded. 9:26 AM EST [facility] Tissue Stomach structure / Unknown 09/10/2024 9:53 AM EST 09/10/2024 10:40 AM EST Tissue specimen (specimen) Stomach structure / Unknown 09/10/2024 9:54 AM EST 09/10/2024 10:40 AM EST Godfrey Hernanedz DO LAB PATHOLOGY ORDERABLES Final R esult [facility] [address] [place] [address], documented in this encounter Visit Diagnoses Diagnosis Hyperplastic polyps of stomach Benign neoplasm of stomach documented in this encounter Orders Discharge Count Last Ordered Date First Orde red Date DISCHARGE PATIENT 1 09/10/2024 documented in this encounter Care Teams Eclectic Doctor Relationship Specialty Start Date End Date Janell Willis MD [address] [place] [address] PCP - General Internal Medicine 06/20/19 documented as of this encounter
== END 2024-09-24 09:37 | disposition home or self-care (01) ==
LOC: HO.LNP 09:36
PROVIDERS: PCP Internal Medicine; Visit Provider Physician Assistant
DX: J06.9 Acute upper respiratory infection, unspecified (principal); R09.89 Other specified symptoms and signs involving the circulatory and respiratory systems
CPT/HCPCS: 0241U; 99212

== ENCOUNTER 2024-09-24 09:36 | Outpatient (AMB) | payer MEDICARE, SELFPAY ==
--- NOTE | 2024-09-24 09:38 | MHC.OFFWIV ---
Intake Vital Signs 09/24/24 09:40 Weight 225 lb BP 110/70 Blood Pressure Location Rt brachial Position Sitting Pulse 94 Pulse Source Pulse Oximeter Temp 98.8 F Temp Source Oral Pulse Oximetry (%) 95 Intake Visit Reasons: EP-fever, cough, headaches, body ache, chills Intake Note: Patient here for cough, fever, SOB, headache and dry mouth that has been present for 2 days. Patient Tobacco Use Status: Former Tobacco user Allergies lisinopril Allergy (Uncoded 09/24/24 09:41) upset stomach Do you need a note to return to daycare/school/sports/work: No HPI HPI Comments History of Present Illness Details Patient is a 69yo M who presents with flu like symptoms Onset 2 days ago + fever, body aches, headache + night sweats over night last night + dry mouth Slight L ear ache with ringing with nasal fullness +cough with yellow productive; minimal No vomiting but + decreased appetite No diarrhea He has tried tylenol for fever; Also ST spray OTC PFSH Medical History Enlarged thyroid JIMENEZ (dyspnea on exertion) Lower back pain HTN (hypertension) GERD (gastroesophageal reflux disease) Hyperlipidemia Diabetes Surgical History Hx of endoscopy H/O colonoscopy Social History Household Members: Spouse Household Members Other:: Housing: House Alcohol intake: current Alcohol intake frequency: holidays/special occasions only Alcohol type: beer and wine Patient Tobacco Use Status: Former Tobacco user e-Cigarette/Vaping Use: Never Used service: No Current occupational status: employed Current occupational exposures/hazards: No Cognitive needs: No Hearing needs: No Vision needs: No Review of Systems Const Reports chills, Reports fatigue, Reports fever(s), Reports headache(s), Reports night sweats and Reports poor appetite Eyes Denies change in vision ENT Reports dizziness (sometimes when standing quickly), Denies otalgia, Reports headache(s), Reports nasal congestion, Denies nasal discharge and Denies sore throat Card Denies chest pain, Denies syncope and Denies dyspnea Resp Reports change in phlegm color, Reports cough and Denies dyspnea GI Denies abdominal pain, Denies diarrhea and Denies vomiting Musc Reports myalgias Skin/Breast Denies rash Neuro Reports dizziness (sometimes when standing quickly), Denies syncope and Reports headache(s) Endo Reports fatigue Physical Exam Vital Signs: Last Vital Signs Temp 98.8 F 09/24/24 09:40 Pulse 94 09/24/24 09:40 BP 110/70 09/24/24 09:40 Pulse Ox 95 09/24/24 09:40 General: Non-toxic, NAD. Speaking full sentences. Skin: Warm dry throughout Eye: EOMI HENT: Mucosa slightly dry. Airway patent. Uvula midline. No pharyngeal erythema or edema. 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 Bilateral canals clear. TM non-erythematous, non-bulging. No TM perforation or hemotympanum noted. Respiratory: CTA bilaterally. No wheezes, rales or rhonchi Cardiac: RRR. No murmur MSK: Full ROM extremities. Neurology: Alert. No aphasia or facial droop. Gait without abnormality Psych: Good mood and affect Assessment & Plan Assessment & Plan (1) URI (upper respiratory infection): Code(s): J06.9 - Acute upper respiratory infection, unspecified Qualifiers: URI type: unspecified URI Qualified Code(s): J06.9 - Acute upper respiratory infection, unspecified Plan: Patient seen and evaluated. Lungs CTA DIscussed fever control Covid/flu/rsv swab ordered/obtained Tamiflu called in if patient is + flu he will take medicine Discussed symptomatic management if not positive for flu and/or if positive for covid/rsv Patient gave verbal understanding and had no additional questions or concerns at time of discharge All questions answered Orders: Orders SARS-CoV2/FLU/RSV Today R09.89 - Other specified symptoms and signs involving the circulatory and respiratory systems Medications: New oseltamivir (Tamiflu) 75 mg PO BID 10 caps 0RF 5 days Coding Level of Care Code Est Pt Level 3 (65159) Diagnoses Upper respiratory tract infection, unspecified type J06.9 URI type: unspecified URI
[2024-09-24 09:40] VITALS: BP 110/70; PULSE 94; TEMP 37.1; O2SAT 95
--- OUTSIDE RECORDS SUMMARY | 2024-09-24 10:59 | XMS_ITS | Clinical Summary ---
Author Organization 175 [facility] Address [address] [place] [address] Phone Care Team Providers Care Grip Wrapper Name Role Phone Janell Willis MD Primary Care Provider [phone] Allergies No known active allergies Medications bisacodyL (DULCOLAX) 5 mg EC tablet Take 2 tablets by mouth right before your first dose of liquid prep. 04/25/2022 Active multivitamin with minerals (MULTIPLE VITAMIN-MINERALS ORAL) Take by mouth daily. Active Lactobacillus acidophilus (PROBIOTIC ORAL) Take by mouth daily. Active amLODIPine (NORVASC) 5 mg tablet Take 5 mg by mouth daily. Active glipiZIDE (GLUCOTROL XL) 5 mg 24 hr tablet Take 5 mg by mouth 2 times daily. Active metFORMIN (GLUCOPHAGE) 1,000 mg tablet Take 1,000 mg by mouth 2 times daily (with meals). Active omeprazole (PriLOSEC) [address] capsule daily. 08/24/2019 Active pravastatin (PRAVACHOL) 10 mg tablet at bedtime. 07/13/2019 Active sertraline (ZOLOFT) 25 mg tablet Take 25 mg by mouth daily. Active Active Problems Problem Noted Date Diagnosed Date Hyperplastic polyps of stomach 06/24/2024 BPH (benign prostatic hyperplasia) 09/25/2019 Diabetes mellitus type 2, uncomplicated 09/25/19 20 GERD (gastroesophageal reflux disease) 0 Hearing loss 09/25/2019 Hyperlipidemia 09/25/2019 Hypertension 09/25/2019 Encounters Date Type Department Care Team Description 09/10/2024 9:36 AM EST Anesthesia Event [facility] [address] [place] [id number] Jones Begum MD 09/10/2024 8:54 AM EST - 09/10/2024 11:59 PM EST Hospital Encounter [facility] [address] [place] [phone] Godfrey Hernandez DO McAdams, Megan, CRNA Spencer, Mark A, MD Hyperplastic polyps of stomach Discharge Disposition: Home or Self Care 06/24/2024 10:45 AM EST Office Visit Gastroenterology - [place] [address] [facility] [address] [place] [phone] Qamar Deal MD Hyperplastic polyps of stomach (Primary Dx) 06/24/2024 Telephone Gastroenterology [facility] [address] [facility] [address] [place] [phone] Qamar Deal MD Appointment from Last 3 Months Immunizations Name Administration Dates Next Due Tdap Tetanus diptheria acell ular pertussis (Boostrix; Adacel) 7yo and older 09/18/2018 Surgical History Surgery Date Site/Laterality Comments COLONOSCOPY 10/2008 PROCEDURE: HISTORICAL COLONOSCOPY; COMMENT: Negative VARICOSE VEIN SURGERY Bilateral ESOPHAGOGASTRODUODENOSCOPY Medical History Medical History Date Comments Hypertension 09/25/2019 DX:Hypertension Hyperlipidemia 09/25/2019 DX:Hyperlipidemi a Diabetes mellitus type 2, uncomplicated (CMS/HCC) 09/25/2019 DX:Diabetes mellitus type 2, uncomplicated (HCC) GERD (gastroesophageal reflux disease) 09/25/2019 DX:GERD (gastroesophageal reflux disease) Hearing loss 09/25/2019 DX:Hearing loss BPH (benign prostatic hyperplasia) 09/25/2019 DX:BPH (benign prostatic hyperplasia) Colon polyp Gastric polyp Social History Tobacco Use Types Packs/Day Years Used Date Smoking Tobacco: Former Cigarettes 1 18 S tarted: 1979 Tobacco Cessation:Counseling Given: Not Answered Alcohol Use Standard Drinks/Week Comments Yes 0 (1 standard drink = 0.6 oz pur e alcohol) occ Interpersonal Safety Answer Date Record ed Physical Abuse 09/10/2024 Verbal Abuse 09/10/2024 Sex and Gender Information Value Date Recorded Sex Assigned at Male 09/05/2024 1:15 PM EST Legal Sex Male 5:18 AM EST Gender Identity Male 09/05/2024 1:15 PM EST Sexual Orientation Straight 09/05/2024 1: 15 PM EST Obstetrics History Last Filed Vital Signs Vital Sign Reading Time Taken Comments Blood Pressure 133/80 09/10/2024 10:18 AM EST Pulse 81 09/10/2024 10:18 AM EST Temperature 36.1 ??C (97 ??F) 09/10/2024 9:58 AM EST Respiratory Rate 14 09/10/2024 10:18 AM EST Oxygen Saturation 97% 09/10/2024 10:18 AM EST Inhaled Oxygen Concentration - - Weight 98.9 kg (218 lb) 09/10/2024 9:11 AM EST Height 177.8 cm (5' 10 ) 09/10/2024 9:11 AM EST Body Mass Index 31.28 09/10/2024 9:11 AM EST Plan of Treatment Health Maintenance Due Date Last Done Comments Diabetes: Annual GFR (Glomerular Filtration Rate) 1955 Diabetes: Annual Foot Exam 1967 Diabetes: Annual Retina Eye Exam 1967 Pneumococcal Vaccine: 50+ Years (1 of 2 - PCV) 1976 Abdominal Aortic Aneurysm (AAA) Screen 07/09/2022 Cholesterol Screening (Lipid Panel) 07/09/2022 Depression Screening 07/09/2022 Hepatitis C Screening 07/09/2022 Medicare Annual Wellness Visit 07/09/2022 Social Influencers of Health Screening 07/09/2022 Diabetes: Annual Urine Albumin-Creatinine Ratio (uACR) 07/13/2022 Diabetes: Blood Sugar Control Test (HGBA1C) 07/13/2022 Hypertension/CHF/CAD Annual BMP Blood Test 07/13/2022 COVID-19 Vaccine ( season) 2024 11/17/2022, 09/02/2021 Influenza Vaccine (#1) 2024 , 04/29/2021, 05/28/2020, Additional history exists Falls Risk Assessment 09/10/2025 09/10/2024 DTaP,Tdap,and Td Vaccines (2 - Td or Tdap) 09/18/2028 09/18/2018 Colorectal Cancer Screening: Colonoscopy 04/27/2032 04/27/2022 RSV Immunization Patients 60+ Years Old (1 - 1-dose 75+ series) 2032 Zoster Vaccines Completed 07/15/2024, 03/20/2024 HIB Vaccines Aged Out No longer eligi ble based on patient's age to complete this topic HPV Vaccines Aged Out No longer eligi ble based on patient's age to complete this topic Hepatitis A Vaccines Aged Out No long er eligible based on patient's age to complete this topic Hepatitis B Vaccines Aged Out No long er eligible based on patient's age to complete this topic IPV Vaccines Aged Out No longer eligi ble based on patient's age to complete this topic MMR Vaccines Aged Out No longer eligi ble based on patient's age to complete this topic Meningococcal ACWY Vaccine Aged Out N o longer eligible based on patient's age to complete this topic Meningococcal B Vacine Aged Out No lo nger eligible based on patient's age to complete this topic RSV Immunization Patients Under 20 months Aged Out No longer eligible based on patient's age to complete this topic Varicella Vaccines Aged Out No longer eligible based on patient's age to complete this topic Procedures Procedure Name Priority Date/Time Associated Diagnosis Comments EGD Routine 09/10/2024 9:57 AM EST Hyperplastic polyps of stomach TISSUE EXAM Routine 09/10/2024 9:53 AM EST Hyperplastic polyps of stomach HM COLONOSCOPY Routine 04/27/2022 from Last 3 Months or Most Recently Relevant to Health Maintenance Results * EGD Anesthesia - MAC; [facility] ENDOSCOPY (09/10/2024 9:57 AM EST) Anatomical Region Laterality Modality Endoscopy 09/10/2024 9:41 AM EST Impressions 09/10/2024 9:55 AM EST - Normal esophagus. ? - Normal examined duodenum. ? - Four gastric polyps. Resected and retrieved. ? Injected. ? - Erythematous mucosa in the stomach. Biopsied. Recommendation: ?- Discharge patient to home. ? - Resume previous diet. ? - Continue present medications. ? - Await pathology results. ? - Repeat upper endoscopy for surveillance based on ? pathology results. Narrative 09/10/2024 9:55 AM EST [facility] GI Patient Name: Jose A Cook Procedure Date: 09/10/2024 9:41 AM Date of : 1955 Age: 69 Gender: Male Note Status: Finalized Attending MD: Godfrey Hernandez DO, [id number] Procedure Date No Time: 09/10/2024 Procedure: ? Upper GI endoscopy Indications: ? For therapy of gastric polyps Providers: ? Godfrey Hernandez DO Referring MD: ?Janell Willis MD Medicines: ? Monitored Anesthesia Care Complications: ? No immediate complications. Estimated blood loss: ? Minimal. Estimated Blood Loss: ? Estimated blood loss was minimal. Procedure: ? Pre-Anesthesia Assessment: ? - - Prior to the procedure, a History and Physical was ? performed, and patient medications and allergies were ? reviewed. The patient is competent. The risks and ? benefits of the procedure and the sedation options and ? risks were discussed with the patient. All questions ? were answered and informed consent was obtained. ? Patient identification and proposed procedure were ? verified by the physician, the nurse, the ? anesthesiologist, the astrophysics teacher and the blend technician ? in the pre-procedure area in the endoscopy suite. ? Mental Status Examination: alert and oriented. Airway ? Examination: normal oropharyngeal airway and neck ? mobility. Respiratory Examination: clear to ? auscultation. CV Examination: normal. Prophylactic ? Antibiotics: The patient does not require prophylactic ? antibiotics. Prior Anticoagulants: The patient has ? taken no anticoagulant or antiplatelet agents. ASA ? Grade Assessment: II - A patient with severe systemic ? disease. After reviewing the risks and benefits, the ? patient was deemed in satisfactory condition to ? undergo the procedure. The anesthesia plan was to use ? monitored anesthesia care (MAC). Immediately prior to ? administration of medications, the patient was ? re-assessed for adequacy to receive sedatives. The ? heart rate, respiratory rate, oxygen saturations, ? blood pressure, adequacy of pulmonary ventilation, and ? response to care were monitored throughout the ? procedure. The physical status of the patient was ? re-assessed after the procedure. ? After obtaining informed consent, the endoscope was ? passed under direct vision. Throughout the procedure, ? the patient's blood pressure, pulse, and oxygen ? saturations were monitored continuously. The Endoscope ? was introduced through the mouth, and advanced to the ? third part of duodenum. Findings: ?The esophagus was normal. ? The examined duodenum was normal. ? Four 12 mm semi-pedunculated polyps with no stigmata ? of recent bleeding were found in the entire examined ? stomach. Area was successfully injected with 4 mL of a ? 0.1 mg/mL solution of epinephrine for a lift ? polypectomy. The polyp was removed with a hot snare. ? Resection and retrieval were complete. Estimated blood ? loss was minimal. ? Diffuse moderately erythematous mucosa without ? bleeding was found in the stomach. Biopsies were taken ? with a cold forceps for histology. Estimated blood ? loss was minimal. Procedure Code(s): ? --- Professional --- ? 13853, Esophagogastroduodenoscopy, flexible, ? transoral; with removal of tumor(s), polyp(s), or ? other lesion(s) by snare technique ? 82218, 59, Esophagogastroduodenoscopy, flexible, ? transoral; with biopsy, single or multiple ? 05563, 59, Esophagogastroduodenoscopy, flexible, ? transoral; with directed submucosal injection(s), any ? substance Diagnosis Code(s): ? --- Professional --- ? K31.7, Polyp of stomach and duodenum ? K31.89, Other diseases of stomach and duodenum CPT copyright 2020 [employer]. All rights reserved. The codes documented in this report are preliminary and upon plating department helper review may be revised to meet current compliance requirements. GODFREY Hernandez DO 09/10/2024 9:55:13 AM This report has been signed electronically.Godfrey Hernandez DO Number of Addenda: 0 Note Initiated On: 09/10/2024 9:41 AM Scope In: Scope Out: ? Endoscopy Department at [facility] - [address] [place] [address], ? [place] [address] Procedure Note Godfrey Hernandez DO - 09/10/2024 [facility] GI Patient Name: Jose A Cook Procedure Date: 09/10/2024 9:41 AM Date of : 1955 Age: 69 Gender: Male Note Status: Finalized Attending MD: Godfrey Hernandez DO, [id number] Procedure Date No Time: 09/10/2024 Procedure: Upper GI endoscopy Indications: For therapy of gastric polyps Providers: Godfrey Hernandez DO Referring MD: Janell Willis MD Medicines: Monitored Anesthesia Care Complications: No immediate complications. Estimated blood loss: Minimal. Estimated Blood Loss: Estimated blood loss was minimal. Procedure: Pre-Anesthesia Assessment: - - Prior to the procedure, a History and Physicalwas performed, and patient medications and allergieswere reviewed. The patient is competent. The risks and benefits of the procedure and the sedation optionsand risks were discussed with the patient. Allquestions were answered and informed consent was obtained. Patient identification and proposed procedure were verified by the physician, the nurse, the anesthesiologist, the astrophysics teacher and thetechnician in the pre-procedure area in the endoscopy suite. Mental Status Examination: alert and oriented.Airway Examination: normal oropharyngeal airway and neck mobility. Respiratory Examination: clear to auscultation. CV Examination: normal. Prophylactic Antibiotics: The patient does not requireprophylactic antibiotics. Prior Anticoagulants: The patient has taken no anticoagulant or antiplatelet agents. ASA Grade Assessment: II - A patient with severesystemic disease. After reviewing the risks and benefits,the patient was deemed in satisfactory condition to undergo the procedure. The anesthesia plan was touse monitored anesthesia care (MAC). Immediately priorto administration of medications, the patient was re-assessed for adequacy to receive sedatives. The heart rate, respiratory rate, oxygen saturations, blood pressure, adequacy of pulmonary ventilation,and response to care were monitored throughout the procedure. The physical status of the patient was re-assessed after the procedure. After obtaining informed consent, the endoscope was passed under direct vision. Throughout theprocedure, the patient's blood pressure, pulse, and oxygen saturations were monitored continuously. TheEndoscope was introduced through the mouth, and advanced tothe third part of duodenum. Findings: The esophagus was normal. The examined duodenum was normal. Four 12 mm semi-pedunculated polyps with nostigmata of recent bleeding were found in the entireexamined stomach. Area was successfully injected with 4 mLof a 0.1 mg/mL solution of epinephrine for a lift polypectomy. The polyp was removed with a hotsnare. Resection and retrieval were complete. Estimatedblood loss was minimal. Diffuse moderately erythematous mucosa without bleeding was found in the stomach. Biopsies weretaken with a cold forceps for histology. Estimated blood loss was minimal. Procedure Code(s): --- Professional --- 02292, Esophagogastroduodenoscopy, flexible, transoral; with removal of tumor(s), polyp(s), or other lesion(s) by snare technique 63440, 59, Esophagogastroduodenoscopy, flexible, transoral; with biopsy, single or multiple 60443, 59, Esophagogastroduodenoscopy, flexible, transoral; with directed submucosal injection(s),any substance Diagnosis Code(s): --- Professional --- K31.7, Polyp of stomach and duodenum K31.89, Other diseases of stomach and duodenum CPT copyright 2020 [employer]. All rights reserved. The codes documented in this report are preliminary and upon plating department helper reviewmay be revised to meet current compliance requirements. GODFREY Hernandez DO 09/10/2024 9:55:13 AM This report has been signed electronically.Godfrey Hernandez DO Number of Addenda: 0 Note Initiated On: 09/10/2024 9:41 AM Scope In: Scope Out: Endoscopy Department at [facility] - [address] [place] [phone] IMPRESSION: - Normal esophagus. - Normal examined duodenum. - Four gastric polyps. Resected and retrieved. Injected. - Erythematous mucosa in the stomach. Biopsied. Recommendation: - Discharge patient to home. - Resume previous diet. - Continue present medications. - Await pathology results. - Repeat upper endoscopy for surveillance based on pathology results. Qamar Deal MD GI~PROCEDURE ORDERABLES Final Re sult * Tissue exam (09/10/2024 9:53 AM EST) Final Diagnosis A. Stomach, gastric polyps x4 via hot snare and epi: - Hyperplastic polyp(s). B. Stomach, random gastric biopsies: - Gastric antral mucosa with mild chronic gastritis. - Gastric antrum/body junction mucosa with chronic gastritis, focal intestinal metaplasia, and mild lamina propria eosinophils. - Negative for dysplasia. - Immunohistochemistry: - Helicobacter pylori: negative. - INSM1: negative for neuroendocrine cell (ECL) hyperplasia. 9:26 AM EST [facility] Gross Description A. Stomach, gastric polyps x4 via hot snare and epi: Labeled stomach gastric p . Received in formalin, are six irregular soft to rubbery, arevalo-pink to red tissue fragments, approximately ranging from 0.5 cm to 1.5 cm in greatest diameters. The three largest pieces were serially sectioned. The specimen is wrapped in paper and submitted in toto in four cassettes, multiple pieces, multiple levels. B. Stomach, random gastric biopsies: Labeled stomach random ga . Received in formalin, are four irregular soft to rubbery, arevalo-pink to red tissue fragments, approximately ranging from 0.2 cm to 0.4 cm in greatest diameters, which are wrapped in paper and submitted in toto in one cassette, four pieces, multiple levels. dvb/SL 9:26 AM EST [facility] Disclaimer NOTE: The immunohistochemical tests and in situ hybridization tests were developed and their performance characteristics were determined by [facility]. They have not been cleared or approved by the U.S. Food and Drug Administration. The FDA has determined that such clearance or approval is not necessary. These tests are used for clinical purposes. They should not be regarded as investigational or for research. This laboratory is certified under the Clinical Laboratory Improvement Amendments of 1988 (CLIA) as qualified to perform high complexity clinical laboratory testing. (controls appropriate) Unless otherwise specified, all tissue is 10% NB formalin fixed and paraffin embedded. 9:26 AM EST [facility] Tissue Stomach structure / Unknown 09/10/2024 9:53 AM EST 09/10/2024 10:40 AM EST Tissue specimen (specimen) Stomach structure / Unknown 09/10/2024 9:54 AM EST 09/10/2024 10:40 AM EST us Godfrey Hernandez DO LAB PATHOLOGY ORDERABLES Final R esult [facility] [address] [place] [address], * Colonoscopy (04/27/2022) Colonoscopy No Interpretation , Abstracted Anatomical Region Laterality Modality Other Historical Provider HEALTH MAINTENANCE Final Result from Last 3 Months or Most Recently Relevant to Health Maintenance Insurance [employer] - [place] MEDICARE ADVANTAGE Care Teams Grip Wrapper Relationship Specialty Start Date End Date Janell Willis MD [address] [place] [phone] PCP - General Internal Medicine 06/20/19
--- OUTSIDE RECORDS SUMMARY | 2024-09-24 10:59 | XMS_ITS | Encounter Summary ---
Author Organization [facility] Address [address] [place] [address] Care Team Providers Care Medical Billing And Coding Specialist Name Role Phone Janell Willis MD Primary Care Provider [phone] Reason for Referral * Hospital - Outpatient (Routine) - Closed Specialty Diagnoses / Procedures Referred By Contac t Referred To Contact Gastroenterology Diagnoses Hyperplastic polyps of stomach Procedures EGD Anesthesia - MAC; [facility] ENDOSCOPY Qamar Deal MD [address] [address] Phone: tel: fax: [facility] Endoscopy [address] [place] [address] Phone: tel: Referral ID Status Reason Start Date Expiration Date Visits Re quested Visits Authorized [id number] Closed 08/13/2024 08/13/2025 1 1 Reason for Visit * Hospital - Outpatient (Routine) - Closed Specialty Diagnoses / Procedures Referred By Contac t Referred To Contact Gastroenterology Diagnoses Hyperplastic polyps of stomach Procedures EGD Anesthesia - MAC; [facility] ENDOSCOPY Qamar Deal MD [address] [address] Phone: tel: fax: [facility] Endoscopy [address] [place] [address] Phone: tel: Referral ID Status Reason Start Date Expiration Date Visits Re quested Visits Authorized [id number] Closed 08/13/2024 08/13/2025 1 1 Encounter Details Date Type Department Care Team (Late st Contact Info) Description 09/10/2024 8:54 AM EST - 09/10/2024 11:59 PM EST Hospital Encounter [facility] Endoscopy [address] [place] [id number] Godfrey Hernandez DO 175 [facility] [address] [place] [address] Beatrice Boyd CRNA [address] [facility] ALANNA Tellez [address] Jones Begum MD [address] [place] [address] Hyperplastic polyps of stomach Discharge Disposition: Home or Self Care Social History Tobacco Use Types Packs/Day Years [...] Orientation Straight 09/05/2024 1: 15 PM EST documented as of this encounter Last Filed Vital Signs Vital Sign Reading [...] Mass Index 31.28 09/10/2024 9:11 AM EST documented in this encounter Discharge Instructions * Attachments The following attachments cannot be sent through Care Everywhere. * Gastric Polyps: General Info ([place]) * EGD (Upper Endoscopy): Post-op ([place]) documented in this encounter Medications at Time of Discharge amLODIPine (NORVASC) 5 mg tablet Take 5 mg by mouth daily. glipiZIDE (GLUCOTROL XL) 5 mg 24 hr tablet Take 5 mg by mouth 2 times daily. Lactobacillus acidophilus (PROBIOTIC ORAL) Take by mouth daily. metFORMIN (GLUCOPHAGE) 1,000 mg tablet Take 1,000 mg by mouth 2 times daily (with meals). multivitamin with minerals (MULTIPLE VITAMIN-MINERALS ORAL) Take by mouth daily. omeprazole (PriLOSEC) [address] capsule daily. 08/24/2019 pravastatin (PRAVACHOL) 10 mg tablet at bedtime. 07/13/2019 sertraline (ZOLOFT) 25 mg tablet Take 25 mg by mouth daily. bisacodyL (DULCOLAX) 5 mg EC tablet Take 2 tablets by mouth right before your first dose of liquid prep. 04/25/2022 documented as of this encounter Discharge Disposition Disposition Code Departure Means Destination Home or Self Care documented in this encounter Progress Notes * Godfrey Hernandez DO - 09/10/2024 10:30 AM EST Please let the patient know that the stomach polyps were benign, but in the stomach are considered precancerous. His random gastric biopsies showed no precancer cells or dysplasia. These are good news. The polyps were completely removed. Please have the patient continue with his omeprazole as current. Please have the patient follow-up in GI clinic. 6 months. Diagnosis: Hyperplastic gastric polyps. Please place a reminder for the patient to have a repeat endoscopy in 2 years. Diagnosis: Hyperplastic gastric polyps. Thank you. * Cherelle Alarcon MA - 09/10/2024 10:30 AM EST Patient informed. Recall placed. Patient will call back to book his 6 month f/u office visit. * Ashley Bellamy RN - 09/10/2024 10:06 AM EST Problem: Cognitive:Periop Procedure - Minor Goal: Knowledge of disease or condition will improve Outcome: Adequate for Discharge Problem: Sensory:Periop Procedure - Minor Goal: Demonstrates/reports adequate pain control Outcome: Adequate for Discharge * Risa Henning RN - 09/10/2024 9:51 AM EST Epi 1 to 10cc was used to deepa polyps before removal * Jaylin Barnett RN - 09/10/2024 9:03 AM EST Problem: Cognitive:Periop Procedure - Minor Goal: Knowledge of disease or condition will improve Outcome: Progressing Problem: Sensory:Periop Procedure - Minor Goal: Demonstrates/reports adequate pain control Outcome: Progressing PT VERBALIZED UNDERSTAND OF DC INSTRUCTIONS, FALL RISK REVIEWED, CALL BARRY AT BEDSIDE. documented in this encounter H&P Notes * Godfrey Hernandez DO - 09/10/2024 10:30 AM EST Pre-Op Diagnosis: hdp polyp, surveillance Proposed Procedure: EGD Performing Surgeon/MD/Endoscopist: Godfrey Hernandez DO Medical/History: Past Medical History: Diagnosis Date BPH (benign prostatic hyperplasia) 09/25/2019 DX:BPH (benign prostatic hyperplasia) Colon polyp Diabetes mellitus type 2, uncomplicated (CMS/HCC) 09/25/2019 DX:Diabetes mellitus type 2, uncomplicated (HCC) Gastric polyp GERD (gastroesophageal reflux disease) 09/25/2019 DX:GERD (gastroesophageal reflux disease) Hearing loss 09/25/2019 DX:Hearing loss Hyperlipidemia 09/25/2019 DX:Hyperlipidemia Hypertension 09/25/2019 DX:Hypertension Past Surgical History: Procedure Laterality Date COLONOSCOPY 10/2008 PROCEDURE: HISTORICAL COLONOSCOPY; COMMENT: Negative ESOPHAGOGASTRODUODENOSCOPY VARICOSE VEIN SURGERY Bilateral Medications/Allergies: Prior to Admission medications Medication Sig Start Date End Date Taking? Authorizing Provider amLODIPine (NORVASC) 5 mg tablet Take 5 mg by mouth daily. Yes Historical Provider, glipiZIDE (GLUCOTROL XL) 5 mg 24 hr tablet Take 5 mg by mouth 2 times daily. Yes Historical Provider, Lactobacillus acidophilus (PROBIOTIC ORAL) Take by mouth daily. Yes Historical Provider, metFORMIN (GLUCOPHAGE) 1,000 mg tablet Take 1,000 mg by mouth 2 times daily (with meals). Yes Historical Provider, multivitamin with minerals (MULTIPLE VITAMIN-MINERALS ORAL) Take by mouth daily. Yes Historical Provider, omeprazole (PriLOSEC) [address] capsule daily. 08/24/19 Yes Historical Provider, pravastatin (PRAVACHOL) 10 mg tablet at bedtime. 07/13/19 Yes Historical Provider, sertraline (ZOLOFT) 25 mg tablet Take 25 mg by mouth daily. Yes Historical Provider, bisacodyL (DULCOLAX) 5 mg EC tablet Take 2 tablets by mouth right before your first dose of liquid prep. Patient not taking: Reported on 06/24/2024 04/25/22 Historical Provider, Patient Age:69 y.o. Vitals: Vitals: 09/10/24 0911 BP: 131/82 Pulse: 74 Resp: 16 Temp: 36.1 ??C (97 ??F) SpO2: 97% Physical Exam: Mental Status: Clear HEENT: WNL Heart: WNL Lungs: WNL Abdomen: WNL Extremities: WNL Neuro: WNL Labs: Imaging: Diagnosis/Plan: egd documented in this encounter Procedure Notes * Ashley Bellamy RN - 09/10/2024 10:33 AM EST SPOKE TO PT REGARDING RESULTS. * Ashley Bellamy RN - 09/10/2024 10:23 AM EST PT TOLERATED PO FLUIDS AND SNACK. documented in this encounter Plan of Treatment Not on file documented as of this encounter Procedures Procedure Name Priority Date/Time Associated Diagnosis Comments EGD Routine 09/10/2024 9:57 AM EST Hyperplastic polyps of stomach TISSUE EXAM Routine 09/10/2024 9:53 AM EST Hyperplastic polyps of stomach documented in this encounter Results * EGD Anesthesia - MAC; [facility] ENDOSCOPY (09/10/2024 9:57 AM EST) Anatomical Region [...] pathology results. Narrative 09/10/2024 9:55 AM EST [facility] GI Patient Name: Jose A Cook Procedure Date: 09/10/2024 9:41 AM Date of : 1955 Age: 69 Gender: Male Note Status: Finalized Attending MD: Godfrey Hernandez DO, [id number] Procedure Date No Time: 09/10/2024 Procedure: ? [...] physician, the nurse, the ? anesthesiologist, the jointer submarine cable and the automotive exhaust emissions technician ? in the pre-procedure area in [...] Procedure Code(s): ? --- Professional --- ? 58943, Esophagogastroduodenoscopy, flexible, ? transoral; with removal of tumor(s), polyp(s), or ? other lesion(s) by snare technique ? 28637, 59, Esophagogastroduodenoscopy, flexible, ? transoral; with biopsy, single or multiple ? 39574, 59, Esophagogastroduodenoscopy, flexible, ? transoral; with directed submucosal injection(s), any ? substance Diagnosis Code(s): ? --- Professional --- ? K31.7, Polyp of stomach and duodenum ? K31.89, Other diseases of stomach and duodenum CPT copyright 2020 [employer]. All rights reserved. The codes documented in this report are preliminary and upon special agent group insurance review may be revised to meet current compliance requirements. GODFREY Hernandez DO 09/10/2024 9:55:13 AM This report has been signed electronically.Godfrey Hernandez DO Number of Addenda: 0 Note Initiated On: 09/10/2024 9:41 AM Scope In: Scope Out: ? Endoscopy Department at [facility] - [address] [place] [address], ? [place] [address] Procedure Note Godfrey Hernandez DO - 09/10/2024 [facility] GI Patient Name: Jose A Cook Procedure Date: 09/10/2024 9:41 AM Date of : 1955 Age: 69 Gender: Male Note Status: Finalized Attending MD: Godfrey Hernandez DO, [id number] Procedure Date No Time: 09/10/2024 Procedure: Upper [...] the physician, the nurse, the anesthesiologist, the jointer submarine cable and thetechnician in the pre-procedure area in [...] was minimal. Procedure Code(s): --- Professional --- 43664, Esophagogastroduodenoscopy, flexible, transoral; with removal of tumor(s), polyp(s), or other lesion(s) by snare technique 05967, 59, Esophagogastroduodenoscopy, flexible, transoral; with biopsy, single or multiple 98802, 59, Esophagogastroduodenoscopy, flexible, transoral; with directed submucosal injection(s),any substance Diagnosis Code(s): --- Professional --- K31.7, Polyp of stomach and duodenum K31.89, Other diseases of stomach and duodenum CPT copyright 2020 [employer]. All rights reserved. The codes documented in this report are preliminary and upon special agent group insurance reviewmay be revised to meet current compliance requirements. GODFREY Hernandez DO 09/10/2024 9:55:13 AM This report has been signed electronically.Godfrey Hernandez DO Number of Addenda: 0 Note Initiated On: 09/10/2024 9:41 AM Scope In: Scope Out: Endoscopy Department at [facility] - [address] [place] [phone] IMPRESSION: - Normal esophagus. - Normal examined duodenum. - Four gastric polyps. Resected and retrieved. Injected. - Erythematous mucosa in the stomach. Biopsied. Recommendation: - Discharge patient to home. - Resume previous diet. - Continue present medications. - Await pathology results. - Repeat upper endoscopy for surveillance based on pathology results. us Qamar Deal MD GI~PROCEDURE ORDERABLES Final Re [...] for neuroendocrine cell (ECL) hyperplasia. 9:26 AM [facility] Gross Description A. Stomach, [...] four pieces, multiple levels. dvb/SL 9:26 AM [facility] Disclaimer NOTE: The immunohistochemical tests and in situ hybridization tests were developed and their performance characteristics were determined by [facility]. They have not [...] fixed and paraffin embedded. 9:26 AM EST [facility] Tissue Stomach structure / Unknown 09/10/2024 9:53 AM EST 09/10/2024 10:40 AM EST Tissue specimen (specimen) Stomach structure / Unknown 09/10/2024 9:54 AM EST 09/10/2024 10:40 AM EST Godfrey Hernandez DO LAB PATHOLOGY ORDERABLES Final R esult [facility] [address] [place] [address], documented in this encounter Visit Diagnoses Diagnosis Hyperplastic polyps of stomach Benign neoplasm of stomach documented in this encounter Orders Discharge Count Last Ordered Date First Orde red Date DISCHARGE PATIENT 1 09/10/2024 documented in this encounter Care Teams Medical Billing And Coding Specialist Relationship Specialty Start Date End Date Janell Willis MD [address] [place] [address] PCP - General Internal Medicine 06/20/19 documented as of this encounter
--- OUTSIDE RECORDS SUMMARY | 2024-09-24 10:59 | XMS_ITS | Encounter Summary ---
Author Organization [facility] Address [address] [place] [address] Care Team Providers Care Painter And Grader Cork Name Role Phone Janell Willis MD Primary Care Provider [phone] Encounter Details Date Type Department Care Team (Late st Contact Info) Description 09/10/2024 9:36 AM EST Anesthesia Event [facility] Endoscopy [address] [place] [address] Jones Begum MD [address] [place] [address] Anesthesia Record Procedure Summary Procedure Name Responsible Anesthesiologist Anesthesia Start Time Anesthesia Stop Time EGD Jones Begum MD 09/10/24 0936 09/10/24 1002 Events Date Time Event Comment 09/10/2024 0919 0936 An Start 0936 An Start Data The patient wa s reevaluated immediately before moderate or deep sedation use and before anesthesia induction. 0936 Anesthesia Ready 0937 In Room 0937 an stop data 0957 Out of Room 1002 Handoff to RN I completed my handoff to the receiving nurse during which we: 1. Identified the patient 2. Identified the responsible provider 3. Reviewed the pertinent medical history 4. Discussed the surgical course 5. Reviewed intra-op anesthesia management and issues during anesthesia 6. Set expectations for post-procedure period 7. Allowed opportunity for questions and acknowledgement of understanding. 1002 An Stop Meds Name Total propofol (DIPRIVAN) injection 10 mg/mL 1 00 mg lidocaine PF (XYLOCAINE-MPF) local injec tion 2% 100 mg midazolam (VERSED) PF injection 1 mg/mL 1 mg lactated Ringer's infusion 500 mL * Agents No agents on file. * Blood No blood administrations on file. Lines, Drains, and Airways Type Details Placement Removal Peripheral IV Placement Date: 08/30 09/23; Placement Time: 911; Catheter Size: 20 G; Orientation: Posterior, Right; Location: Hand; Insertion Attempts: 1; Patient Tolerance: Tolerated well; Removal Date: 09/10/24; Removal Time: 1005 09/10/24 0912 by Jaylin Barnett RN 09/10/24 100 by Ashley Bellamy RN documented in this encounter Social History Tobacco Use Types Packs/Day Years Used Date Smoking Tobacco: Former Cigarettes 1 18 S tarted: 1977 Alcohol Use Standard Drinks/Week Comments Yes 0 [...] PM EST documented as of this encounter Progress Notes * Beatrice Boyd CRNA - 09/10/2024 10:02 AM EST Patient: Jose A Cook Procedure Summary Date: 09/10/24 Room / Location: [facility]oscopy Anesthesia Start: 935 Anesthesia Stop: 1002 Procedure: EGD Diagnosis: Hyperplastic polyps of stomach (For therapy of gastric polyps) Scheduled Providers: Panchito Hernandez DO; Beatrice Boyd CRNA; Jones Begum MD Responsible Provider:Jones Begum MD Anesthesia Type: MAC ASA Status: 2 Anesthesia Plan: MAC Last Vitals: Vitals Value Taken Time Visit Vitals BP 131/82 Pulse 74 Temp 36.1 ??C (97 ??F) (Tympanic) Resp 16 Ht 1.778 m (70 ) Wt 98.9 kg (218 lb) SpO2 97% BMI 31.28 kg/m?? Smoking Status Former BSA 2.17 m?? No data recorded Anesthesia Post Evaluation Patient location during evaluation: PACU Patient participation: complete - patient participated Level of consciousness: awake Pain score: 0 Pain management: adequate Airway patency: patent Anesthetic complications: no Cardiovascular status: acceptable Respiratory status: acceptable Hydration status: acceptable Nausea: No Vomiting: No There were no known notable events for this encounter. * Jones Begum MD - 09/10/2024 9:18 AM EST 69 y.o. male scheduled for [EGD [GI2]] Ht Readings from Last 1 Encounters: 09/10/24 1.778 m (70 ) Wt Readings from Last 1 Encounters: 09/10/24 98.9 kg (218 lb) Body mass index is 31.28 kg/m??. Past Medical History: Diagnosis Date BPH (benign [...] COMMENT: Negative ESOPHAGOGASTRODUODENOSCOPY VARICOSE VEIN SURGERY Bilateral Denies anesthesia complications No Known Allergies Current Outpatient Medications on File Prior to Encounter Medication Sig Dispense Refill amLODIPine (NORVASC) 5 mg tablet Take 5 [...] omeprazole (PriLOSEC) [address] capsule daily. pravastatin (PRAVACHOL) 10 mg tablet at bedtime. sertraline (ZOLOFT) 25 mg tablet Take 25 mg by mouth daily. bisacodyL (DULCOLAX) 5 mg EC tablet Take 2 tablets by mouth right before your first dose of liquid prep. (Patient not taking: Reported on 06/24/2024) No current facility-administered medications on file prior to encounter. Current In-hospital Medications Social History Tobacco Use Smoking status: Former Average packs/day: 1 pack/day for 18.0 years (18.0 ttl pk-yrs) Types: Cigarettes Start date: 1979 Substance Use Topics Alcohol use: Yes Comment: occ Drug use: Never Is the patient a current smoker (e.g. cigarette, cigar, pip, e-cigarette, or mariajuana)? Yes [] No[x] Patient previously instructed to abstain from smoking on the day of procedure? Yes [] No[] Patient smoked on the day of procedure? Yes [] No[] ASPIRE smoking VBR: [] Not interested in quitting [] Interested in quitting- referred to treatment [] Interested in quitting - treatment provided Visit Vitals BP 131/82 Pulse 74 Temp 36.1 ??C (97 ??F) (Tympanic) Resp 16 Ht 1.778 m (70 ) Wt 98.9 kg (218 lb) SpO2 97% BMI 31.28 kg/m?? Smoking Status Former BSA 2.17 m?? Available cardiac studies reviewed: No results found. EKG No results found for this or any previous visit (from the past 4464 hours). ECHO No results found for this or any previous visit. CATH No results found for this or any previous visit. LABS: No results found for: WBC , HGB , HCT , MCV , PLT No results found for: GLUCOSE , CALCIUM , NA , K , CO2 , CL , BUN , CREATININE No results found for: INR , PROTIME No results found for: PTT Denies cardiac, pulm, neuro, hepatic or renal s/sx. Patient meets ASA guidelines for NPO status. > 4 mets without anginal symptoms. Relevant labs, vitals, imaging, cardiac and pulmonary studies as well as HPI, Meds, Allergies, ROS,PMH, PSH, SH, and FH reviewed. Relevant Problems Cardio (+) Hypertension GI (+) GERD (gastroesophageal reflux disease) Clinical information reviewed: Tobacco Allergies Meds Problems Med Hx Surg Hx Fam Hx Soc Hx Anesthesia Plan ASA 2 Anesthesia Plan: MAC Anesthesia Considerations MAC Anesthesia Risks Discussed allergic reaction, dental injury, nausea, serious complications, pain, sore throat and corneal abrasion Plan Factors Patient is not a current smoker Smoking cessation education has not been provided Induction method: intravenous Anesthetic plan and risks discussed with patient. Use of blood products discussed with patient who. Anesthesia Plan discussed with CDL SERVICE TECHNICIAN. Anesthesia Evaluation Patient summary reviewed and Nursing notes reviewed Airway Mallampati: II Thyromental distance: >3 FB Neck ROM: fullnot intubatedno noted risk Dental - normal exam Pulmonary breath sounds clear to auscultation Cardiovascular (+) hypertension Rhythm: regular Rate: normal Neuro/Psych Mental Status: alert and oriented GI/Hepatic/Renal (+) GERD well controlled Endo/Other (+) diabetes mellitus well controlled Abdominal Abdomen: soft. Bowel sounds: normal. PONV RISK SCORE: 1 Vitals: 09/10/24 0911 BP: 131/82 Pulse: 74 Resp: 16 Temp: 36.1 ??C (97 ??F) TempSrc: Tympanic SpO2: 97% Weight: 98.9 kg (218 lb) Height: 1.778 m (70 ) SpO2 Readings from Last 1 Encounters: 09/10/24 97% No results found for: WBC , RBC , HGB , HCT , PLT , MCV No Known Allergies STOP BANG: No data recorded NPO Status: Time of Last Liquid: 1939 Time of Last Solid: 1939 documented in this encounter Plan of Treatment Not on file documented as of this encounter Visit Diagnoses Not on filedocumented in this encounter Administered Medications Inactive Administered Medications - up to 3 most recent administrations Medication Order MAR Action Action Date Dose Rate Site lactated Ringer's infusion intravenous, Continuous PRN, Starting on Sun09/10/24 at 0943, Anesthesia Intraprocedure New Bag 09/10/2024 9:43 AM EST 75 mL/hr lidocaine (PF) (XYLOCAINE-MPF) 2 % injection injection, As needed, Starting on Sun09/10/24 at 0943, Anesthesia Intraprocedure Given 09/10/2024 9:43 AM EST 100 mg midazolam (PF) (VERSED) injection intravenous, As needed, Starting on Sun09/10/24 at 0942, Anesthesia Intraprocedure Given 09/10/2024 9:42 AM EST 1 mg propofoL (DIPRIVAN) injection intravenous, As needed, Starting on Sun09/10/24 at 0943, Anesthesia Intraprocedure Given 09/10/2024 9:47 AM EST 50 mg Given 09/10/2024 9:43 AM EST 50 mg documented in this encounter Care Teams Painter And Grader Cork Relationship Specialty Start Date End Date Janell Willis MD [address] [place] [address] PCP - General Internal Medicine 06/20/19 documented as of this encounter
== END 2024-09-24 10:11 | disposition home or self-care (01) ==
PROVIDERS: PCP Internal Medicine; Visit Provider Physician Assistant
DX: J06.9 Acute upper respiratory infection, unspecified (principal)

== ENCOUNTER 2024-10-18 07:50 | Outpatient (REF) | payer MEDICARE, SELFPAY ==
--- OUTSIDE RECORDS SUMMARY | 2024-10-18 07:52 | XMS_ITS | Clinical Summary ---
Author Organization 175 [facility] Address [address] [place] [address] Phone Care Team Providers Care Assistant Restaurant General Manager Name Role Phone Janell Willis MD Primary Care Provider [phone] Allergies No known active allergies Medications bisacodyL [...] Description 09/10/2024 9:36 AM EST Anesthesia Event [facility] Endoscopy [address] [place] [phone] Jones Begum MD 09/10/2024 8:54 AM EST - 09/10/2024 11:59 PM EST Hospital Encounter [facility] Endoscopy [address] [place] [phone] Godfrey Hernandez DO McAdams, Megan, CRNA Spencer, Mark A, MD Hyperplastic polyps of stomach Discharge Disposition: Home or Self Care from Last 3 Months Immunizations Name Administration Dates Next Due Tdap Tetanus diptheria acell ular pertussis (Boostrix; Adacel) 7yo and older 09/18/2018 Surgical History Surgery Date Site/Laterality Comments COLONOSCOPY 10/2008 PROCEDURE: HISTORICAL COLONOSCOPY; COMMENT: Negative VARICOSE VEIN SURGERY Bilateral ESOPHAGOGASTRODUODENOSCOPY Medical History Medical History Date Comments Hypertension 09/25/2019 DX:Hypertension Hyperlipidemia 09/25/2019 DX:Hyperlipidemi a Diabetes mellitus type 2, uncomplicated 09/25/2019 DX:Diabetes mellitus type 2, uncomplicated (HCC) GERD (gastroesophageal reflux disease) 09/25/2019 DX:GERD (gastroesophageal reflux disease) Hearing loss 09/25/2019 DX:Hearing loss BPH (benign prostatic hyperplasia) 09/25/2019 DX:BPH (benign prostatic hyperplasia) Colon polyp Gastric polyp Social History Tobacco Use Types Packs/Day Years Used Date Smoking Tobacco: Former Cigarettes 1 18 S tarted: 1980 Tobacco Cessation:Counseling Given: Not Answered Alcohol Use [...] Maintenance Results * EGD Anesthesia - MAC; [facility] ENDOSCOPY (09/10/2024 9:57 AM EST) [...] pathology results. Narrative 09/10/2024 9:[address] [facility] GI Patient Name: Jose A Cook Procedure Date: 09/10/2024 9:41 AM Date of : 1955 Age: 69 Gender: Male Note Status: Finalized Attending MD: Godfrey Hernandez DO, [id number] Procedure Date No Time: 09/10/2024 Procedure: ? [...] physician, the nurse, the ? anesthesiologist, the political consultant and the auto transmission technician ? in the pre-procedure area in [...] Procedure Code(s): ? --- Professional --- ? 38607, Esophagogastroduodenoscopy, flexible, ? transoral; with removal of tumor(s), polyp(s), or ? other lesion(s) by snare technique ? 81510, 59, Esophagogastroduodenoscopy, flexible, ? transoral; with biopsy, single or multiple ? 90963, 59, Esophagogastroduodenoscopy, flexible, ? transoral; with directed submucosal injection(s), any ? substance Diagnosis Code(s): ? --- Professional --- ? K31.7, Polyp of stomach and duodenum ? K31.89, Other diseases of stomach and duodenum CPT copyright 2020 [employer]. All rights reserved. The codes documented in this report are preliminary and upon computer language coder review may be revised to meet current compliance requirements. GODFREY Hernandez DO 09/10/2024 9:55:13 AM This report has been signed electronically.Godfrey Hernandez DO Number of Addenda: 0 Note Initiated On: 09/10/2024 9:41 AM Scope In: Scope Out: ? Endoscopy Department at [facility] - [address] [place] [address], ? [place] [address] Procedure Note Godfrey Hernandez DO - 09/10/2024 [facility] GI Patient Name: Jose A Cook Procedure Date: 09/10/2024 9:41 AM Date of : 1955 Age: 69 Gender: Male Note Status: Finalized Attending MD: Godfrey Hernandez DO, [id number] Procedure Date No Time: 09/10/2024 Procedure: Upper [...] the physician, the nurse, the anesthesiologist, the political consultant and thetechnician in the pre-procedure area in [...] was minimal. Procedure Code(s): --- Professional --- 40070, Esophagogastroduodenoscopy, flexible, transoral; with removal of tumor(s), polyp(s), or other lesion(s) by snare technique 79243, 59, Esophagogastroduodenoscopy, flexible, transoral; with biopsy, single or multiple 41904, 59, Esophagogastroduodenoscopy, flexible, transoral; with directed submucosal injection(s),any substance Diagnosis Code(s): --- Professional --- K31.7, Polyp of stomach and duodenum K31.89, Other diseases of stomach and duodenum CPT copyright 2020 [employer]. All rights reserved. The codes documented in this report are preliminary and upon computer language coder reviewmay be revised to meet current compliance requirements. GODFREY Hernandez DO 09/10/2024 9:55:13 AM This report has been signed electronically.Godfrey Hernandez DO Number of Addenda: 0 Note Initiated On: 09/10/2024 9:41 AM Scope In: Scope Out: Endoscopy Department at [facility] - [address] [place] [phone] IMPRESSION: - Normal esophagus. - Normal examined [...] neuroendocrine cell (ECL) hyperplasia. 9:26 AM EST [facility]) [facility] Gross Description A. [...] pieces, multiple levels. dvb/SL 9:26 AM EST [facility] Disclaimer NOTE: The immunohistochemical tests and in situ hybridization tests were developed and their performance characteristics were determined by [facility]. They have not been [...] formalin fixed and paraffin embedded. 9:26 AM [facility] Tissue Stomach structure / Unknown 09/10/2024 9:53 AM EST 09/10/2024 10:40 AM EST Tissue specimen (specimen) Stomach structure / Unknown 09/10/2024 9:54 AM EST 09/10/2024 10:40 AM EST Godfrey Hernandez DO LAB PATHOLOGY ORDERABLES Final R esult [facility] [address] [place] [address], * Colonoscopy (04/27/2022) Colonoscopy No Interpretation , Abstracted Anatomical Region Laterality Modality Other Historical Provider MD HEALTH MAINTENANCE Final Result from Last 3 Months or Most Recently Relevant to Health Maintenance Insurance BLUE CROSS - [place] MEDICARE ADVANTAGE Care Teams Assistant Restaurant General Manager Relationship Specialty Start Date End Date Janell Willis MD PCP - General Internal Medicine 06/20/19
[2024-10-18 12:01] LABS: MANUAL DIFF FLAG NO
[2024-10-18 12:09] LABS: Basophils Absolute Auto 0.1 X10*3/uL (0.0-0.2); Basophils Percent Auto 0.8 % (0-2); Eosinophils Absolute Auto 0.3 X10*3/uL (0.0-0.4); Hematocrit 45.1 % (42.0-52.0); Hemoglobin 15.3 g/dl (14.0-18.0); Imm Gran Abs Auto 0.02 X10*3/uL (0.00-0.03); Imm Gran Pct Auto 0.3 % (0.0-0.4); Lymphocytes Absolute Auto 2.7 X10*3/uL (1.2-4.9); Lymphocytes Percent Auto 42.9 % (20-40); Mean Corpuscular HGB Conc 33.9 g/dl (31.0-36.0); Mean Corpuscular Hemoglobin 29.3 pg (27.0-33.0); Mean Corpuscular Volume 86.4 fL (80.0-98.0); Mean Platelet Volume 10.7 fL (9.4-12.4); Monocytes Absolute Auto 0.6 X10*3/uL (0.1-1.2); Monocytes Percent Auto 8.6 % (2-11); Neutrophils Absolute Auto 2.7 x10*3/uL (2.0-8.3); Neutrophils Percent Auto 42.4 % (45-73); Platelet Count 179 X10*3/uL (160-400); Red Blood Count 5.22 X10*6/uL (4.60-5.80); Red Cell Distribution Width 13.1 % (11.0-16.0); White Blood Count 6.4 X10*3/uL (4.8-10.8)
[2024-10-18 12:33] LABS: Alanine Aminotransferase 48 U/L (0-40); Albumin Level 4.3 g/dL (3.5-5.0); Alkaline Phosphatase 37 U/L (39-117); Anion Gap 13 (12-20); Aspartate Amino Transferase 47 U/L (5-37); Bilirubin Total 0.6 mg/dL (0.0-1.0); Blood Urea Nitrogen 13 mg/dL (9-16); Calcium 9.6 mg/dL (8.4-10.2); Carbon Dioxide 29 mmol/L (22-29); Chloride 104 mmol/L (96-108); Cholesterol 156 mg/dL (<200); Estimated Glomerular Filt Rate > 60; Glucose Fasting 127 mg/dL (60-99); HDL Cholesterol 40 mg/dL (>40); Iron 86 mcg/dL (45-160); LDL Cholesterol Calculated 88 mg/dL (<100); Percent Iron Saturation 28 % (15-50); Potassium 4.7 mmol/L (3.3-5.1); Sodium 141 mmol/L (135-145); Total Iron Binding Capacity 307 mcg/dL (228-428); Total Protein 8.1 g/dL (6.5-8.0); Triglycerides 142 mg/dL (<150); Unsaturated Iron Binding 221 ug/dL
[2024-10-18 12:48] LABS: Estimated Average Glucose 160 mg/dL; Hemoglobin A1C 217.0062 umol/L; Hemoglobin A1c % 7.2 % (<6.0); Total Hemoglobin (HGBA1C) 3959.6085 umol/L
[2024-10-18 13:45] LABS: Creatinine Urine 94.29 mg/dL; Microalbum/Creatinine Ratio Ur 8.4 ug/mg cr (<30)
== END 2024-10-18 07:51 | disposition home or self-care (01) ==
LOC: HO.HMGCLDS 07:50
PROVIDERS: PCP Internal Medicine; Visit Provider Internal Medicine
DX: E78.5 Hyperlipidemia, unspecified (principal); E11.9 Type 2 diabetes mellitus without complications; D64.9 Anemia, unspecified; I10 Essential (primary) hypertension
CPT/HCPCS: 36415; 80053; 80061; 82043; 82570; 83036; 83540; 85025

== ENCOUNTER 2024-10-20 10:55 | Outpatient (AMB) | payer MEDICARE, SELFPAY ==
[2024-10-20 11:09] VITALS: BP 120/76; PULSE 80; RESP 20; TEMP 36.9; O2SAT 97; BMI 31.0
--- NOTE | 2024-10-20 11:09 | MHC.PC.OV ---
Vital Signs 10/20/24 11:09 Height 5 ft 11 in Weight 222 lb BMI 31.0 BP 120/76 Blood Pressure Location Rt brachial Position Sitting Respiration 20 Pulse 80 Pulse Source Pulse Oximeter Temp 98.5 F Temp Source Oral Pulse Oximetry (%) 97 Intake Visit Reasons: 4 months f/up Allergies lisinopril Allergy (Uncoded 10/20/24 11:26) upset stomach Tobacco use date assessed: 10/20/24 Fall risk assessment: No Falls in past year Last assessed Fall Risk: 10/20/24 Dental Screening Dental Screen Date: 10/20/24 Did you have a dental visit in the last 12 months?: Yes Did you have a dental problem in the last 6 months where you did not have access to dental care?: No Was dental information given to patient?: Patient has dentist HPI 4 months f/up HPI Details Patient presents for the follow-up on hypertension hyperlipidemia type 2 diabetes stable on current medications PFSH Medical History Enlarged thyroid JIMENEZ (dyspnea on exertion) Lower back pain HTN (hypertension) GERD (gastroesophageal reflux disease) Hyperlipidemia Diabetes Surgical History Hx of endoscopy H/O colonoscopy Social History Household Members: Spouse Household Members Other:: Housing: House Alcohol intake: current Alcohol intake frequency: holidays/special occasions only Alcohol type: beer and wine Patient Tobacco Use Status: Former Tobacco user e-Cigarette/Vaping Use: Never Used service: No Current occupational status: employed Current occupational exposures/hazards: No Cognitive needs: No Hearing needs: No Vision needs: No Questionnaire PHQ-9 Over the last 2 weeks, how often have you been bothered by any of the following problems? 1. Little interest or pleasure in doing things: not at all 2. Feeling down, depressed, or hopeless: not at all 3. Trouble falling or staying asleep, or sleeping too much: not at all 4. Feeling tired or having little energy: not at all 5. Poor appetite or overeating: not at all 6. Feeling bad about yourself - or that you are a failure or have let yourself or your family down: not at all 7. Trouble concentrating on things, such as reading the newspaper or watching television: not at all 8. Moving or speaking so slowly that other people could have noticed. Or the opposite - being so fidgety or restless that you have been moving around a lot more than usual: not at all 9. Thoughts that you would be better off or of hurting yourself in some way: not at all Total score: 0 Depression Screening Interpretation: Negative Depression Screening Done: Yes 15482 - PHQ-9 Billing: Yes Source: Developed by Drs. Kennedy Bradley, Melissa Farris, Shayan Ashton and colleagues, with an educational trisha from [employer]. Thrive Questionnaire Date Thrive assessed: 10/20/24 I am a: Patient What is your living situation today?: I have a steady place to live Within the past 12 months, did the food you bought not last and you didn't have the money to get more?: Often true Within the past 12 months, did you worry whether your food would run out before you got money to buy more?: Often true Do you have trouble paying for medicines?: I choose not to answer this question Do you have trouble getting transportation to medical appointments?: No Do you have trouble paying your heating and electricity bill?: Yes Do you have trouble taking care of your child, family member or friend?: No Do you have trouble with day-to-day activities such as bathing, preparing meals, shopping, managing finances, etc.?: No Are you currently unemployed and looking for a job?: No Are you interested in more education?: No Please select the resources that you would like help with: Utilities Currently or been in a relationship where the following occur: I choose not to answer THRIVE Score: 3 AUDIT C Alcohol Use Questionnaire (AUDIT-C) 1. How often do you have a drink containing alcohol?: Monthly or less 2. How many drinks containing alcohol do you have on a typical day when you are drinking?: 1 or 2 3. How often do you have six or more drinks on one occasion?: Less than monthly Total Score: 2 ROCKY-7 AMB Questionnaire ROCKY-7 Date ROCKY - 7 assessed: 10/20/24 Feeling nervous, anxious, or on edge: 0 = Not at all Not being able to stop or control worryin = Not at all Worrying too much about different things: 0 = Not at all Trouble relaxin = Not at all Being so restless that it is hard to sit still: 0 = Not at all Becoming easily annoyed or irritable: 0 = Not at all Feeling afraid as if something awful might happen: 0 = Not at all Total ROCKY-7 score (0-4 normal; 5-9 mild; 10-14 moderate; 15-21 severe): 0 Source: Developed by Drs. Kennedy Bradley, Melissa Farris, Shayan Ashton and colleagues, with an educational trisha from [employer]. ROCKY-7 Assessment Billing ROCKY-7 Assessment Tool: ROCKY-7 Assessment 53200 Review of Systems Const All systems reviewed & are unremarkable except as noted in HPI and below Eyes Reports no additional complaints ENT Reports no additional complaints Card Reports no additional complaints Resp Reports no additional complaints GI Reports no additional complaints Reports no additional complaints Physical exam (Primary Care) Vital Signs: Last Vital Signs Temp 98.5 F 10/20/24 11:09 Pulse 80 10/20/24 11:09 Resp 20 10/20/24 11:09 BP 120/76 10/20/24 11:09 Pulse Ox 97 10/20/24 11:09 BMI result Body Mass Index 31.0 Tobacco/Smoking Status: Tobacco use Status Tobacco use date assessed 10/20/24 10/20/24 11:21 Patient Tobacco Use Status Former Tobacco user 10/20/24 11:09 e-Cigarette/Vaping Use Never Used 10/20/24 11:09 PHQ-9: PHQ-9 Score PHQ-9: Total score 0 10/20/24 11:21 Depression Screening Interpretation: Negative Thrive Assessment: Date of Thrive Assessment Date Thrive assessed 10/20/24 10/20/24 11:09 Currently or been in a relationship where the following occur: I choose not to answer Const General: no acute distress HENMT Face and sinus: Yes normal facial exam Resp Effort & Inspection: normal respiratory effort Auscultation: clear to auscultation bilaterally Cardio Rhythm: regular rhythm Heart sounds: S1 normal heart sound present and S2 normal heart sound present GI Inspection: Yes normal to inspection Palpation (GI): Soft to palpation Percussion: Yes normal to percussion Auscultation: normal bowel sounds Coding Level of Care Code Est Pt Level 4 (60404) Diagnoses Sleep apnea G47.30 Diabetes E11.9 Hyperlipidemia E78.5 HTN (hypertension) I10 Additional Codes ROCKY-7 Assessment Billing - ROCKY-7 Assessment Tool: ROCKY-7 Assessment 71772 ([id number]) PHQ-9 - 55731 - PHQ-9 Billing: Yes ([id number]) Assessment & Plan Assessment & Plan (1) Sleep apnea: Comment: Witnessed sleep apnea Code(s): G47.30 - Sleep apnea, unspecified Category: Medical Plan: For witnessed sleep apnea check sleep studies (2) Diabetes: Comment: pt refused to add GLP1 receptor agonist 09/22 Code(s): E11.9 - Type 2 diabetes mellitus without complications Category: Medical Plan: A1c is 7.2, ADA diet increase exercise weight loss discussed with the patient. He declined adding additional medications. Follow-up in 3 months with a fasting labs before (3) Hyperlipidemia: Code(s): E78.5 - Hyperlipidemia, unspecified Category: Medical Plan: Continue statin (4) HTN (hypertension): Comment: Intolerant to lisinopril, upset stomach Code(s): I10 - Essential (primary) hypertension Category: Medical Plan: Continue current medications Orders: Orders Hemoglobin A1c 3 Months E11.9 - Type 2 diabetes mellitus without complications, E78.5 - Hyperlipidemia, unspecified, I10 - Essential (primary) hypertension Microalbumin, Random (w Creat) 3 Months E11.9 - Type 2 diabetes mellitus without complications, E78.5 - Hyperlipidemia, unspecified, I10 - Essential (primary) hypertension RT home sleep study Today G47.30 - Sleep apnea, unspecified Complete Blood Count no Diff 3 Months E11.9 - Type 2 diabetes mellitus without complications, E78.5 - Hyperlipidemia, unspecified, I10 - Essential (primary) hypertension Comprehensive [place]. Panel Fast 3 Months E11.9 - Type 2 diabetes mellitus without complications, E78.5 - Hyperlipidemia, unspecified, I10 - Essential (primary) hypertension Lipid Panel 3 Months E11.9 - Type 2 diabetes mellitus without complications, E78.5 - Hyperlipidemia, unspecified, I10 - Essential (primary) hypertension PSA,Total (Free>4and<10) 3 Months E11.9 - Type 2 diabetes mellitus without complications, I10 - Essential (primary) hypertension, N40.0 - Benign prostatic hyperplasia without lower urinary tract symptoms
== END 2024-10-20 12:03 | disposition home or self-care (01) ==
LOC: HO.HMCC 10:56
PROVIDERS: PCP Internal Medicine; Visit Provider Internal Medicine
DX: G47.30 Sleep apnea, unspecified (principal); E11.9 Type 2 diabetes mellitus without complications; E78.5 Hyperlipidemia, unspecified; I10 Essential (primary) hypertension

== ENCOUNTER → 2024-10-20 10:55 | Outpatient (BNVA) | payer MEDICARE, SELFPAY | PROVIDERS: PCP Internal Medicine; Visit Provider Internal Medicine | DX: G47.30 Sleep apnea, unspecified (principal); E11.9 Type 2 diabetes mellitus without complications; E78.5 Hyperlipidemia, unspecified; I10 Essential (primary) hypertension | CPT/HCPCS: 96127; 99212 ==

== ENCOUNTER → 2024-12-17 10:37 | Outpatient (REF) | payer MEDICARE, SELFPAY ==
--- OUTSIDE RECORDS SUMMARY | 2024-12-17 12:06 | XMS_ITS | Clinical Summary ---
Author Organization [address] [facility] Address [address] [place] [address] Phone Care Team Providers Care Kettle Cleaner Name Role Phone Janell Willis MD Primary Care Provider [phone] Allergies No known active allergies Medications bisacodyL [...] prostatic hyperplasia) 09/25/2019 Diabetes mellitus type 2, un complicated (CMS/HCC V24, CMS/HCC V28) 09/25/2019 GERD (gastroesophageal reflux disease) 0 Hearing loss 09/25/2019 Hyperlipidemia 09/25/2019 Hypertension 09/25/2019 Encounters Date Type Department Care Team Description 12/11/2024 10:30 AM EDT Treatment [address] [phone] SarahAuroraMk, PT Low back pain, unspecified back pain laterality, unspecified chronicity, unspecified whether sciatica present (Primary Dx); Chronic low back pain, unspecified back pain laterality, unspecified whether sciatica present 12/04/2024 10:30 AM EDT Treatment [address] [phone] Sarah[facility]uroraMk, PT Low back pain, unspecified back pain laterality, unspecified chronicity, unspecified whether sciatica present (Primary Dx) 11/27/2024 10:00 AM EDT Treatment [address] [phone] SarahAuroraMk, PT Low back pain, unspecified back pain laterality, unspecified chronicity, unspecified whether sciatica present (Primary Dx) 11/20/2024 9:30 AM EDT Treatment [address] [phone] SarahAuroraMk, PT Low back pain, unspecified back pain laterality, unspecified chronicity, unspecified whether sciatica present (Primary Dx) 11/14/2024 10:30 AM EDT Treatment [address] [phone] Mikael Villatoro, SIMPLEX OPERATOR Low back pain, unspecified back pain laterality, unspecified chronicity, unspecified whether sciatica present (Primary Dx) 11/06/2024 9:30 AM EDT Treatment [address] [phone] SarahAuroraMk, PT Low back pain, unspecified back pain laterality, unspecified chronicity, unspecified whether sciatica present (Primary Dx) 10/30/2024 12:00 PM EDT Evaluation [address] [place] [address] Anoop Smith M, PT Low back pain, unspecified back pain laterality, unspecified chronicity, unspecified whether sciatica present (Primary Dx); Low back pain, unspecified from Last 3 Months Immunizations Name Administration Dates Next Due Tdap Tetanus diptheria acell ular pertussis (Boostrix; Adacel) 7yo and older 09/18/2018 Surgical History Surgery Date Site/Laterality Comments COLONOSCOPY 10/2008 PROCEDURE: HISTORICAL COLONOSCOPY; COMMENT: Negative VARICOSE VEIN SURGERY Bilateral ESOPHAGOGASTRODUODENOSCOPY Medical History Medical History Date Comments Hypertension 09/25/2019 DX:Hypertension Hyperlipidemia 09/25/2019 DX:Hyperlipidemi a Diabetes mellitus type 2, uncomplicated ([facility]/HCC V24, CMS/HCC V28) 09/25/2019 DX:Diabetes mellitus type 2, uncomplicated ([facility]) GERD (gastroesophageal reflux disease) 09/25/2019 DX:GERD (gastroesophageal [...] BMP Blood Test 07/13/2022 COVID-19 Vaccine ( - season) 2024 11/17/2022, 09/02/2021 Influenza Vaccine (Season Ended) 2025 04/28/2022, 04/29/2021, 05/28/2020, Additional history exists Falls Risk Assessment 09/10/2025 09/10/2024 DTaP,Tdap,and Td Vaccines (2 - Td or Tdap) 09/18/2028 09/18/2018 Colorectal Cancer Screening: Colonoscopy 04/27/2032 04/27/2022 RSV Immunization Adult Patients (1 - 1-dose 75+ series) 2032 Zoster [...] age to complete this topic Meningococcal B Vaccine Aged Out No l onger eligible based on patient's age to complete this topic RSV Immunization Patients Under 20 months Aged Out No longer eligible based on patient's age to complete this topic Varicella Vaccines Aged Out No longer eligible based on patient's age to complete this topic Procedures Procedure Name Priority Date/Time Associated Diagnosis Comments COLONOSCOPY Routine 04/27/2022 from Last 3 Months or Most Recently Relevant to Health Maintenance Results * Colonoscopy (04/27/2022) Colonoscopy No Interpretation , Abstracted Anatomical Region Laterality Modality Other [facility] Provider MD HEALTH MAINTENANCE Final Result from Last 3 Months or Most Recently Relevant to Health Maintenance Insurance [employer] - [place] MEDICARE ADVANTAGE Care Teams Kettle Cleaner Relationship Specialty Start Date End Date Janell Willis MD PCP - General Internal Medicine 10/29/24
== END ==
LOC: HO.SL 10:37
PROVIDERS: PCP Internal Medicine; Visit Provider Internal Medicine
DX: G47.30 Sleep apnea, unspecified (principal); R06.83 Snoring; R40.0 Somnolence
CPT/HCPCS: 95806

== ENCOUNTER → 2024-12-17 10:49 | Outpatient (BNV) | payer MEDICARE, SELFPAY | PROVIDERS: PCP Internal Medicine; Visit Provider Internal Medicine | DX: R06.83 Snoring (principal) | CPT/HCPCS: 95806 ==

== ENCOUNTER 2025-01-03 07:35 | Outpatient (REF) | payer MEDICARE, SELFPAY ==
--- OUTSIDE RECORDS SUMMARY | 2025-01-03 07:38 | XMS_ITS | Clinical Summary ---
Author Organization [address] [facility] Address [address] [place] [address] Phone Care Team Providers Care Grocery Department Manager Name Role Phone Janell Willis MD Primary Care Provider [phone] Allergies No known active allergies Medications bisacodyL [...] Team Description 12/11/2024 10:30 AM EDT Treatment [address] [phone] Sarah[facility]ur[facility]k, PT Low back pain, unspecified back pain laterality, unspecified chronicity, unspecified whether sciatica present (Primary Dx); Chronic low back pain, unspecified back pain laterality, unspecified whether sciatica present 12/04/2024 10:30 AM EDT Treatment [address] [phone] SarahAuroraMk, PT Low back pain, unspecified back pain laterality, unspecified chronicity, unspecified whether sciatica present (Primary Dx) 11/27/2024 10:00 AM EDT Treatment [address] [phone] SarahAuroraMk, PT Low back pain, unspecified back pain laterality, unspecified chronicity, unspecified whether sciatica present (Primary Dx) 11/20/2024 9:30 AM EDT Treatment [address] [phone] SarahAuroraMk, PT Low back pain, unspecified back pain laterality, unspecified chronicity, unspecified whether sciatica present (Primary Dx) 11/14/2024 10:30 AM EDT Treatment [address] [phone] Mikael Villatoro, PODIATRIC AIDE Low back pain, unspecified back pain laterality, unspecified chronicity, unspecified whether sciatica present (Primary Dx) 11/06/2024 9:30 AM EDT Treatment [address] [phone] SarahAuroraMk, PT Low back pain, unspecified back pain laterality, unspecified chronicity, unspecified whether sciatica present (Primary Dx) 10/30/2024 12:00 PM EDT Evaluation [address] [place] [address] Anoop Smith M, PT [...] DX:Hyperlipidemi a Diabetes mellitus type 2, uncomplicated ([facility]/HCC V24, CMS/HCC V28) 09/25/2019 DX:Diabetes mellitus type 2, uncomplicated ([facility]) GERD (gastroesophageal reflux disease) 09/25/2019 DX:GERD (gastroesophageal [...] , Abstracted Anatomical Region Laterality Modality Other [facility] Provider MD HEALTH MAINTENANCE Final Result from Last 3 Months or Most Recently Relevant to Health Maintenance Insurance [employer] - [place] MEDICARE ADVANTAGE Care Teams Grocery Department Manager Relationship Specialty Start Date End Date Janell Willis MD PCP - General Internal Medicine 10/29/24
[2025-01-03 11:18] LABS: Hematocrit 45.3 % (42.0-52.0); Hemoglobin 15.2 g/dl (14.0-18.0); Mean Corpuscular HGB Conc 33.6 g/dl (31.0-36.0); Mean Corpuscular Hemoglobin 29.5 pg (27.0-33.0); Mean Platelet Volume 10.9 fL (9.4-12.4); Platelet Count 179 X10*3/uL (160-400); Red Blood Count 5.15 X10*6/uL (4.60-5.80); Red Cell Distribution Width 12.7 % (11.0-16.0); White Blood Count 7.8 X10*3/uL (4.8-10.8)
[2025-01-03 11:29] LABS: Alanine Aminotransferase 43 U/L (0-40); Albumin Level 4.6 g/dL (3.5-5.0); Alkaline Phosphatase 35 U/L (39-117); Anion Gap 11 (12-20); Aspartate Amino Transferase 42 U/L (5-37); Bilirubin Total 0.9 mg/dL (0.0-1.0); Blood Urea Nitrogen 20 mg/dL (9-16); Calcium 9.4 mg/dL (8.4-10.2); Carbon Dioxide 31 mmol/L (22-29); Chloride 103 mmol/L (96-108); Cholesterol 167 mg/dL (<200); Estimated Glomerular Filt Rate > 60; Glucose Fasting 137 mg/dL (60-99); HDL Cholesterol 37 mg/dL (>40); LDL Cholesterol Calculated 93 mg/dL (<100); Sodium 141 mmol/L (135-145); Total Protein 7.8 g/dL (6.5-8.0); Triglycerides 189 mg/dL (<150)
[2025-01-03 11:32] LABS: Estimated Average Glucose 154 mg/dL; Total Hemoglobin (HGBA1C) 3998.1426 umol/L
[2025-01-03 11:41] LABS: Creatinine Urine 201.03 mg/dL; Microalbum/Creatinine Ratio Ur 5.4 ug/mg cr (<30)
[2025-01-03 11:45] LABS: PSA,Total (Free>4and<10) 2.21 ng/mL (0.00-4.00)
== END 2025-01-03 07:36 | disposition home or self-care (01) ==
LOC: HO.HMGCLDS 07:35
PROVIDERS: PCP Internal Medicine; Visit Provider Internal Medicine
DX: E78.5 Hyperlipidemia, unspecified (principal); I10 Essential (primary) hypertension; E11.9 Type 2 diabetes mellitus without complications; N40.0 Benign prostatic hyperplasia without lower urinary tract symptoms; Z12.5 Encounter for screening for malignant neoplasm of prostate
CPT/HCPCS: 36415; 80053; 80061; 82043; 82570; 83036; 84153; 85027

== ENCOUNTER 2025-01-05 08:19 | Outpatient (AMB) | payer MEDICARE, SELFPAY ==
--- NOTE | 2025-01-05 08:21 | MHC.PC.OV ---
Vital Signs 01/05/25 08:22 Height 5 ft 11 in Weight 228 lb BMI 31.8 BP 128/80 Blood Pressure Location Lt brachial Position Sitting Pulse 83 Pulse Source Pulse Oximeter Temp 98.1 F Temp Source Oral Pulse Oximetry (%) 96 Oxygen Delivery Method Room Air Intake Visit Reasons: Annual PE Intake Note: Pt is here today for PE. Allergies lisinopril Allergy (Uncoded 01/05/25 08:23) upset stomach Medication List - Last Reconciled 01/05/25 by Janell Willis MD amlodipine 5 mg PO DAILY ascorbate calcium (vitamin C) 500 mg PO DAILY blood-glucose meter As directed cholecalciferol (vitamin D3) 25 mcg PO DAILY ferrous sulfate (Feosol) 325 mg PO DAILY FreeStyle Lite Meter (blood-glucose meter) 1 ea miscellaneous DAILY NS FreeStyle Lite Strips (blood sugar diagnostic) test blood sugar twice daily NS glipizide ER 10 mg PO DAILY glipizide ER 5 mg PO DAILY lancets (FreeStyle Lancets) test blood sugar daily metformin 1,000 mg PO BID omeprazole 20 mg PO DAILY polyethylene glycol 3350 17 grams PO Q10M 8 doses pravastatin 20 mg PO DAILY sertraline 25 mg PO DAILY Tobacco use date assessed: 01/05/25 Fall risk assessment: No Falls in past year Last assessed Fall Risk: 01/05/25 Dental Screening Dental Screen Date: 01/05/25 Did you have a dental visit in the last 12 months?: Yes Did you have a dental problem in the last 6 months where you did not have access to dental care?: No Was dental information given to patient?: Patient has dentist HPI Annual PE HPI Details Patient presents for physical. [facility] Medical History (Updated 01/05/25 @ 09:25 by Janell Willis MD) Annual physical exam Enlarged thyroid JIMENEZ (dyspnea on exertion) Lower back pain HTN (hypertension) GERD (gastroesophageal reflux disease) Hyperlipidemia Diabetes Surgical History Hx of endoscopy H/O colonoscopy Social History Household Members: Spouse Household Members Other:: Housing: House Alcohol intake: current Alcohol intake frequency: holidays/special occasions only Alcohol type: beer and wine Patient Tobacco Use Status: Former Tobacco user e-Cigarette/Vaping Use: Never Used service: No Current occupational status: employed Current occupational exposures/hazards: No Cognitive needs: No Hearing needs: No Vision needs: No Questionnaire PHQ-9 Over the last 2 weeks, how often have you been bothered by any of the following problems? 1. Little interest or pleasure in doing things: not at all 2. Feeling down, depressed, or hopeless: not at all 3. Trouble falling or staying asleep, or sleeping too much: not at all 4. Feeling tired or having little energy: not at all 5. Poor appetite or overeating: not at all 6. Feeling bad about yourself - or that you are a failure or have let yourself or your family down: not at all 7. Trouble concentrating on things, such as reading the newspaper or watching television: not at all 8. Moving or speaking so slowly that other people could have noticed. Or the opposite - being so fidgety or restless that you have been moving around a lot more than usual: not at all 9. Thoughts that you would be better off or of hurting yourself in some way: not at all Total score: 0 Depression Screening Interpretation: Negative Depression Screening Done: Yes 16049 - PHQ-9 Billing: Yes Source: Developed by Drs. Kennedy Bradley, Melissa Farris, Shayan Ashton and colleagues, with an educational trisha from [employer]. Thrive Questionnaire Date Thrive assessed: 01/05/25 I am a: Patient What is your living situation today?: I have a steady place to live Within the past 12 months, did the food you bought not last and you didn't have the money to get more?: Often true Within the past 12 months, did you worry whether your food would run out before you got money to buy more?: Often true Do you have trouble paying for medicines?: I choose not to answer this question Do you have trouble getting transportation to medical appointments?: No Do you have trouble paying your heating and electricity bill?: Yes Do you have trouble taking care of your child, family member or friend?: No Do you have trouble with day-to-day activities such as bathing, preparing meals, shopping, managing finances, etc.?: No Are you currently unemployed and looking for a job?: No Are you interested in more education?: No Please select the resources that you would like help with: Utilities Currently or been in a relationship where the following occur: I choose not to answer THRIVE Score: 3 ROCKY-7 AMB Questionnaire ROCKY-7 Date ROCKY - 7 assessed: 01/05/25 Feeling nervous, anxious, or on edge: 0 = Not at all Not being able to stop or control worryin = Not at all Worrying too much about different things: 0 = Not at all Trouble relaxin = Not at all Being so restless that it is hard to sit still: 0 = Not at all Becoming easily annoyed or irritable: 0 = Not at all Feeling afraid as if something awful might happen: 0 = Not at all Total ROCKY-7 score (0-4 normal; 5-9 mild; 10-14 moderate; 15-21 severe): 0 Source: Developed by Drs. Kennedy Bradley, Melissa Farris, Shayan Ashton and colleagues, with an educational trisha from [employer]. ROCKY-7 Assessment Billing ROCKY-7 Assessment Tool: ROCKY-7 Assessment 90301 Review of Systems Const All systems reviewed & are unremarkable except as noted in HPI and below Eyes Reports no additional complaints ENT Reports no additional complaints Card Reports no additional complaints Resp Reports no additional complaints GI Reports no additional complaints Reports no additional complaints Physical exam (Primary Care) Vital Signs: Last Vital Signs Temp 98.1 F 01/05/25 08:22 Pulse 83 01/05/25 08:22 BP 128/80 01/05/25 08:22 Pulse Ox 96 01/05/25 08:22 Oxygen Delivery Method Room Air 01/05/25 08:22 BMI result Body Mass Index 31.8 Tobacco/Smoking Status: Tobacco use Status Tobacco use date assessed 01/05/25 01/05/25 08:24 Patient Tobacco Use Status Former Tobacco user 01/05/25 08:22 e-Cigarette/Vaping Use Never Used 01/05/25 08:22 PHQ-9: PHQ-9 Score PHQ-9: Total score 0 01/05/25 08:24 Depression Screening Interpretation: Negative Thrive Assessment: Date of Thrive Assessment Date Thrive assessed 01/05/25 01/05/25 08:24 Currently or been in a relationship where the following occur: I choose not to answer Const General: no acute distress HENMT Head: Yes normal to inspection Face and sinus: Yes normal facial exam Mouth: Normal oral and palatal mucosa present Neck Neck: Yes no lymphadenopathy and Yes supple Resp Effort & Inspection: normal respiratory effort Auscultation: clear to auscultation bilaterally Cardio Rhythm: regular rhythm Heart sounds: S1 normal heart sound present and S2 normal heart sound present GI Inspection: Yes normal to inspection Palpation (GI): Soft to palpation Percussion: Yes normal to percussion Auscultation: normal bowel sounds Extrem General: Yes no clubbing, cyanosis or edema Coding Level of Care Code Est Pt Prev Care >65y(52069) Diagnoses HTN (hypertension) I10 Diabetes E11.9 Hyperlipidemia E78.5 Annual physical exam Z00.00 Additional Codes ROCKY-7 Assessment Billing - ROCKY-7 Assessment Tool: ROCKY-7 Assessment 91639 ([id number]) PHQ-9 - 52493 - PHQ-9 Billing: Yes ([id number]) Assessment & Plan Assessment & Plan (1) HTN (hypertension): Comment: Intolerant to lisinopril, upset stomach Code(s): I10 - Essential (primary) hypertension Category: Medical Plan: Continue current medications (2) Diabetes: Comment: pt refused to add GLP1 receptor agonist 09/22 Code(s): E11.9 - Type 2 diabetes mellitus without complications Category: Medical Plan: A1c is 7.0. ADA diet regular exercise discussed with the patient patient declined taking GLP 1 agonist. Glipizide will be increase to 15 mg daily patient will return in 3 months with a fasting labs before (3) Hyperlipidemia: Code(s): E78.5 - Hyperlipidemia, unspecified Category: Medical Plan: Continue statin (4) Annual physical exam: Code(s): Z00.00 - Encounter for general adult medical examination without abnormal findings Category: Medical Plan: Well-balanced diet regular physical activity discussed with the patient he is up-to-date with colonoscopy. Orders: Orders Complete Blood Count Auto Diff 3 Months E11.9 - Type 2 diabetes mellitus without complications, E78.5 - Hyperlipidemia, unspecified, I10 - Essential (primary) hypertension Hemoglobin A1c 3 Months E11.9 - Type 2 diabetes mellitus without complications, E78.5 - Hyperlipidemia, unspecified, I10 - Essential (primary) hypertension Comprehensive [place]. Panel Fast 3 Months E11.9 - Type 2 diabetes mellitus without complications, E78.5 - Hyperlipidemia, unspecified, I10 - Essential (primary) hypertension Lipid Panel 3 Months E11.9 - Type 2 diabetes mellitus without complications, E78.5 - Hyperlipidemia, unspecified, I10 - Essential (primary) hypertension IRON PROFILE 3 Months E11.9 - Type 2 diabetes mellitus without complications, E78.5 - Hyperlipidemia, unspecified, I10 - Essential (primary) hypertension Medications: New glipizide ER take with GLIPIZIDE 5 mg 10 mg PO DAILY 90 tabs 3RF glipizide ER 1 tabl with 10 mg 5 mg PO DAILY 90 tabs 3RF
[2025-01-05 08:22] VITALS: BP 128/80; PULSE 83; TEMP 36.7; O2SAT 96; BMI 31.8
== END 2025-01-05 09:08 | disposition home or self-care (01) ==
LOC: HO.HMCC 08:20
PROVIDERS: PCP Internal Medicine; Visit Provider Internal Medicine
DX: I10 Essential (primary) hypertension (principal); E11.9 Type 2 diabetes mellitus without complications; E78.5 Hyperlipidemia, unspecified; Z00.00 Encounter for general adult medical examination without abnormal findings

== ENCOUNTER → 2025-01-05 08:19 | Outpatient (BNVA) | payer MEDICARE, SELFPAY | PROVIDERS: PCP Internal Medicine; Visit Provider Internal Medicine | DX: Z00.00 Encounter for general adult medical examination without abnormal findings (principal); I10 Essential (primary) hypertension; E11.9 Type 2 diabetes mellitus without complications; E78.5 Hyperlipidemia, unspecified; Z79.84 Long term (current) use of oral hypoglycemic drugs; Z79.899 Other long term (current) drug therapy; Z13.31 Encounter for screening for depression; Z13.30 Encounter for screening examination for mental health and behavioral disorders, unspecified | CPT/HCPCS: 96127; 99397 ==

== ENCOUNTER 2025-04-25 07:35 | Outpatient (REF) | payer MEDICARE, SELFPAY ==
--- OUTSIDE RECORDS SUMMARY | 2025-04-25 07:37 | XMS_ITS | Clinical Summary ---
Author Organization [address] [facility] Address [address] [place] [address] Phone Care Team Providers Care Paint Supervisor Name Role Phone Janell Willis MD Primary Care Provider [phone] Allergies No known active allergies Medications bisacodyL [...] Hearing loss 09/25/2019 Hyperlipidemia 09/25/2019 Hypertension 09/25/2019 Immunizations Name Administration Dates Next Due Tdap Tetanus diptheria acell ular pertussis (Boostrix; Adacel) 7yo and older 09/18/2018 Surgical History Surgery Date Site/Laterality Comments COLONOSCOPY 10/2008 PROCEDURE: HISTORICAL COLONOSCOPY; COMMENT: Negative VARICOSE VEIN SURGERY Bilateral ESOPHAGOGASTRODUODENOSCOPY Medical History Medical History Date Comments Hypertension 09/25/2019 DX:Hypertension Hyperlipidemia 09/25/2019 DX:Hyperlipidemi a Diabetes mellitus type 2, uncomplicated ([facility] V24, [facility] V28) 09/25/2019 DX:Diabetes mellitus type 2, uncomplicated ([facility]) GERD (gastroesophageal reflux disease) 09/25/2019 DX:GERD (gastroesophageal [...] 81 09/10/2024 10:18 AM EST Temperature 36.1 C (97 F) 09/10/2024 9:58 AM EST Respiratory Rate 14 [...] Screen 07/09/2022 Cholesterol Screening (Lipid Panel) 07/09/2022 Hepatitis C Screening 07/09/2022 Medicare Annual Wellness Visit 07/09/2022 Social Influencers of Health Screening 07/09/2022 Diabetes: Annual Urine Albumin-Creatinine Ratio (uACR) 07/13/2022 Diabetes: Blood Sugar Control Test (HGBA1C) 07/13/2022 Hypertension/CHF/CAD Annual BMP Blood Test 07/13/2022 Depression Screening 07/30/2024 COVID-19 Vaccine ( - season) 2025 11/17/2022, 09/02/2021 Influenza Vaccine (#1) 2025 , 04/29/2021, 05/28/2020, Additional history exists Falls [...] CROSS - [place] Care Teams Paint Supervisor Relationship Specialty Start Date End Date Janell Willis MD PCP - General Internal Medicine 10/29/24
[2025-04-25 11:10] LABS: MANUAL DIFF FLAG NO
[2025-04-25 11:18] LABS: Hematocrit 45.1 % (42.0-52.0); Hemoglobin 15.4 g/dl (14.0-18.0); Imm Gran Abs Auto 0.02 X10*3/uL (0.00-0.03); Imm Gran Pct Auto 0.3 % (0.0-0.4); Lymphocytes Absolute Auto 2.2 X10*3/uL (1.2-4.9); Mean Corpuscular HGB Conc 34.1 g/dl (31.0-36.0); Mean Corpuscular Hemoglobin 29.7 pg (27.0-33.0); Mean Corpuscular Volume 86.9 fL (80.0-98.0); NRBC Abs Auto 0.000 X10*3/uL (0.0-0.012); NRBC Pct Auto 0.0 /100WBC (0.0-0.2); Platelet Count 168 X10*3/uL (160-400); Red Blood Count 5.19 X10*6/uL (4.60-5.80); White Blood Count 6.7 X10*3/uL (4.8-10.8)
[2025-04-25 11:33] LABS: Alanine Aminotransferase 35 U/L (0-40); Albumin Level 4.6 g/dL (3.5-5.0); Alkaline Phosphatase 35 U/L (39-117); Anion Gap 11 (12-20); Aspartate Amino Transferase 37 U/L (5-37); Blood Urea Nitrogen 16 mg/dL (9-16); Calcium 9.3 mg/dL (8.4-10.2); Carbon Dioxide 30 mmol/L (22-29); Chloride 104 mmol/L (96-108); Cholesterol 178 mg/dL (<200); Estimated Glomerular Filt Rate > 60; HDL Cholesterol 38 mg/dL (>40); Iron 70 mcg/dL (45-160); Percent Iron Saturation 22 % (15-50); Potassium 4.6 mmol/L (3.3-5.1); Sodium 140 mmol/L (135-145); Total Iron Binding Capacity 314 mcg/dL (228-428); Total Protein 7.6 g/dL (6.5-8.0); Triglycerides 194 mg/dL (<150); Unsaturated Iron Binding 244 ug/dL
== END 2025-04-25 07:36 | disposition home or self-care (01) ==
LOC: HO.HMGCLDS 07:35
PROVIDERS: PCP Internal Medicine; Visit Provider Internal Medicine
DX: I10 Essential (primary) hypertension (principal); E11.9 Type 2 diabetes mellitus without complications; E78.5 Hyperlipidemia, unspecified
CPT/HCPCS: 36415; 80053; 80061; 83036; 83540; 85025

== ENCOUNTER 2025-04-28 11:24 | Outpatient (AMB) | payer MEDICARE, SELFPAY ==
--- NOTE | 2025-04-28 12:39 | A.OFFPC_ITS ---
Vital Signs 04/28/25 12:41 Height 5 ft 11 in Weight 223 lb BMI 31.1 BP 120/80 Blood Pressure Location Lt brachial Position Sitting Respiration 19 Pulse 78 Pulse Source Pulse Oximeter Temp 98.1 F Temp Source Oral Pulse Oximetry (%) 98 Oxygen Delivery Method Room Air Intake Visit Reasons: 3 months f/up Allergies lisinopril Allergy (Uncoded 01/05/25 08:23) upset stomach Tobacco use date assessed: 01/05/25 Fall risk assessment: No Falls in past year Last assessed Fall Risk: 04/28/25 Dental Screening Dental Screen Date: 01/05/25 HPI 3 months f/up HPI Details Patient presents for the follow-up of type 2 diabetes hypertension hyperlipidemia. He did not increased glipizide to 15 mg as recommended 3 months ago. Patient has not been monitor his fasting blood glucose regularly. [facility] Medical History Annual physical exam Enlarged thyroid JIMENEZ (dyspnea on exertion) Lower back pain HTN (hypertension) GERD (gastroesophageal reflux disease) Hyperlipidemia Diabetes Surgical History Hx of endoscopy H/O colonoscopy Social History Household Members: Spouse Household Members Other:: Housing: House Alcohol intake: current Alcohol intake frequency: holidays/special occasions only Alcohol type: beer and wine Patient Tobacco Use Status: Former Tobacco user e-Cigarette/Vaping Use: Never Used service: No Current occupational status: employed Current occupational exposures/hazards: No Cognitive needs: No Hearing needs: No Vision needs: No Questionnaire PHQ-9 Over the last 2 weeks, how often have you been bothered by any of the following problems? 1. Little interest or pleasure in doing things: not at all 2. Feeling down, depressed, or hopeless: not at all 3. Trouble falling or staying asleep, or sleeping too much: not at all 4. Feeling tired or having little energy: not at all 5. Poor appetite or overeating: not at all 6. Feeling bad about yourself - or that you are a failure or have let yourself or your family down: not at all 7. Trouble concentrating on things, such as reading the newspaper or watching television: not at all 8. Moving or speaking so slowly that other people could have noticed. Or the opposite - being so fidgety or restless that you have been moving around a lot more than usual: not at all 9. Thoughts that you would be better off or of hurting yourself in some way: not at all Total score: 0 Depression Screening Interpretation: Negative Depression Screening Done: Yes Source: Developed by Drs. Kennedy Bradley, Melissa Farris, Shayan Ashton and colleagues, with an educational trisha from [employer]. Thrive Questionnaire Date Thrive assessed: 10/20/24 I am a: Patient What is your living situation today?: I have a steady place to live Within the past 12 months, did the food you bought not last and you didn't have the money to get more?: Often true Within the past 12 months, did you worry whether your food would run out before you got money to buy more?: Often true Do you have trouble paying for medicines?: I choose not to answer this question Do you have trouble getting transportation to medical appointments?: No Do you have trouble paying your heating and electricity bill?: Yes Do you have trouble taking care of your child, family member or friend?: No Do you have trouble with day-to-day activities such as bathing, preparing meals, shopping, managing finances, etc.?: No Are you currently unemployed and looking for a job?: No Are you interested in more education?: No Please select the resources that you would like help with: Utilities Currently or been in a relationship where the following occur: I choose not to answer THRIVE Score: 3 ROCKY-7 AMB Questionnaire ROCKY-7 Date ROCKY - 7 assessed: 01/05/25 Feeling nervous, anxious, or on edge: 0 = Not at all Not being able to stop or control worryin = Not at all Worrying too much about different things: 0 = Not at all Trouble relaxin = Not at all Being so restless that it is hard to sit still: 0 = Not at all Becoming easily annoyed or irritable: 0 = Not at all Feeling afraid as if something awful might happen: 0 = Not at all Total ROCKY-7 score (0-4 normal; 5-9 mild; 10-14 moderate; 15-21 severe): 0 Source: Developed by Drs. Kennedy Bradley, Melissa Farris, Shayan Ashton and colleagues, with an educational trisha from [employer]. Review of Systems Const All systems reviewed & are unremarkable except as noted in HPI and below Eyes Reports no additional complaints ENT Reports no additional complaints Card Reports no additional complaints Resp Reports no additional complaints GI Reports no additional complaints Reports no additional complaints Physical exam (Primary Care) Vital Signs: Last Vital Signs Temp 98.1 F 04/28/25 12:41 Pulse 78 04/28/25 12:41 Resp 19 04/28/25 12:41 BP 120/80 04/28/25 12:41 Pulse Ox 98 04/28/25 12:41 Oxygen Delivery Method Room Air 04/28/25 12:41 BMI result Body Mass Index 31.1 Tobacco/Smoking Status: Tobacco use Status Tobacco use date assessed 01/05/25 04/28/25 12:39 Patient Tobacco Use Status Former Tobacco user 04/28/25 12:39 e-Cigarette/Vaping Use Never Used 04/28/25 12:39 PHQ-9: PHQ-9 Score PHQ-9: Total score 0 04/28/25 13:32 Depression Screening Interpretation: Negative Thrive Assessment: Date of Thrive Assessment Date Thrive assessed 10/20/24 04/28/25 12:39 Currently or been in a relationship where the following occur: I choose not to answer Const General: no acute distress Eyes General: appearance normal, both eyes and all related structures Neck Neck: Yes no lymphadenopathy and Yes supple Resp Effort & Inspection: normal respiratory effort Auscultation: clear to auscultation bilaterally Cardio Rhythm: regular rhythm Heart sounds: S1 normal heart sound present and S2 normal heart sound present GI Inspection: Yes normal to inspection Palpation (GI): Soft to palpation Percussion: Yes normal to percussion Auscultation: normal bowel sounds Extrem Other: Diabetic foot exam skin is intact monofilament and vibration sensation intact bilaterally General: Yes no clubbing, cyanosis or edema Immunizations pneumoc 20-yasmany conj-dip cr(PF) 0.5 mL IM syringe Performing Provider: Janell Willis MD Performing Location: [facility] Administered by: CONTRERAS Mcgee on 04/28/25 13:32 Dose Route Admin Location Dispensed Lot Number Expiration Date NDC Computer Console Operator 0.5 mL IM Right Deltoid 0.5 mL [id number] 01/26/26 [email or web address] Total Dispensed Waste 0.5 mL 0 % VIS Given Date VIS Provided VIS Publication Date 04/28/25 Single Vaccine 24 Eligibility Eligibility Date Funding Source Not [facility] Eligible 04/28/25 Private Coding Level of Care Code Est Pt Level 4 (61933) Diagnoses HTN (hypertension) I10 Diabetes E11.9 Assessment & Plan Assessment & Plan (1) HTN (hypertension): Comment: Intolerant to lisinopril, upset stomach Code(s): I10 - Essential (primary) hypertension Category: Medical Plan: Continue current medications (2) Diabetes: Comment: pt refused to add GLP1 receptor agonist 09/22, insurance does not cover Jardiance or Farxiga Code(s): E11.9 - Type 2 diabetes mellitus without complications Category: Medical Plan: A1c is 7.2, ADA diet regular exercise discussed with the patient. Patient will increase glipizide to 15 mg a day continue metformin and follow-up in 3 months with a fasting labs before Orders: Orders Hemoglobin A1c 3 Months E11.9 - Type 2 diabetes mellitus without complications, I10 - Essential (primary) hypertension, Z00.00 - Encounter for general adult medical examination without abnormal findings Comprehensive [place]. Panel Fast 3 Months E11.9 - Type 2 diabetes mellitus without complications, I10 - Essential (primary) hypertension, Z00.00 - Encounter for general adult medical examination without abnormal findings Complete Blood Count Auto Diff 3 Months E11.9 - Type 2 diabetes mellitus without complications, I10 - Essential (primary) hypertension, Z00.00 - Encounter for general adult medical examination without abnormal findings Lipid Panel 3 Months E11.9 - Type 2 diabetes mellitus without complications, I10 - Essential (primary) hypertension, Z00.00 - Encounter for general adult medical examination without abnormal findings UA w Microscopic 3 Months E11.9 - Type 2 diabetes mellitus without complications, I10 - Essential (primary) hypertension, Z00.00 - Encounter for general adult medical examination without abnormal findings Microalbumin, Random (w Creat) 3 Months E11.9 - Type 2 diabetes mellitus without complications, I10 - Essential (primary) hypertension, Z00.00 - Encounter for general adult medical examination without abnormal findings Pneumococcal 20 Immunization Today Z23 - Encounter for immunization
[2025-04-28 12:41] VITALS: BP 120/80; PULSE 78; RESP 19; TEMP 36.7; O2SAT 98; BMI 31.1
--- OUTSIDE RECORDS SUMMARY | 2025-04-28 12:54 | XMS_ITS | Clinical Summary ---
Author Organization [address] [facility] Address [address] [place] [address] Phone Care Team Providers Care Brush Material Preparer Name Role Phone Janell Willis MD Primary Care Provider [phone] Allergies No known active allergies Medications bisacodyL [...] loss 09/25/2019 Hyperlipidemia 09/25/2019 Hypertension 09/25/2019 Immunizations Immunization Administration Dates Next Due Tdap Tetanus diptheria acell ular pertussis (Boostrix; Adacel) 7yo and older 09/18/2018 Surgical History Surgery Date Site/Laterality Comments COLONOSCOPY 10/2008 PROCEDURE: HISTORICAL COLONOSCOPY; COMMENT: Negative VARICOSE VEIN SURGERY Bilateral ESOPHAGOGASTRODUODENOSCOPY Medical History Medical History Date Comments Hypertension 09/25/2019 DX:Hypertension Hyperlipidemia 09/25/2019 DX:Hyperlipidemi a Diabetes mellitus type 2, uncomplicated ([facility] V24, [facility] V28) 09/25/2019 DX:Diabetes mellitus type 2, uncomplicated ([facility]) GERD (gastroesophageal reflux disease) 09/25/2019 [...] Safety Answer Date Record ed Physical Abuse Unrecognized value 09/10/2024 Verbal Abuse Unrecognized value 09/10/2024 Sex and Gender Information Value Date [...] Test 07/13/2022 Depression Screening 07/30/2024 COVID-19 Vaccine (3 - season) 2025 11/17/2022, 09/02/2021 Influenza Vaccine [...] [place] - [place] Care Teams Brush Material Preparer Relationship Specialty Start Date End Date Janell Willis MD PCP - General Internal Medicine 10/29/24
== END 2025-04-28 15:03 | disposition home or self-care (01) ==
LOC: HO.HMCC 11:25
PROVIDERS: PCP Internal Medicine; Visit Provider Internal Medicine
DX: I10 Essential (primary) hypertension (principal); E11.9 Type 2 diabetes mellitus without complications; Z23 Encounter for immunization

== ENCOUNTER → 2025-04-28 11:24 | Outpatient (BNVA) | payer MEDICARE, SELFPAY | PROVIDERS: PCP Internal Medicine; Visit Provider Internal Medicine | DX: E11.9 Type 2 diabetes mellitus without complications (principal); I10 Essential (primary) hypertension; E78.5 Hyperlipidemia, unspecified; Z23 Encounter for immunization | CPT/HCPCS: 90471; 90677; 96127; 99212 ==